=== PATIENT | male | born 1965 | race African-American/Black ===

== ENCOUNTER 2019-07-27 12:56 | Inpatient (IN) | payer MEDICARE, MEDICAID ==
[~2019-07-27] VITALS: Ht 182.9 cm; Wt 86.2 kg
--- NOTE | 2019-07-27 13:25 | Emergency Room Report ---
History of Present Illness General Chief Complaint: Abnormal Labs Source: Patient, EMS Present Illness HPI Patient presents from nursing facility with reports of abnormal test including elevated CRP level patient has also been having left-sided mid chest and flank pain General weakness Denies any chest pain currently denies any vomiting or diarrhea patient has difficulty with hearing Denies any recent trauma denies any cough Denies any active shortness of breath Allergies: Coded Allergies: No Known Allergies (Unverified , 07/27/19) COVID-19 Screening Contact w/high risk pt: No Recent Travel to affected area: No Experienced COVID-19 symptoms?: No Patient History Past Medical History: see triage record Reviewed Nursing Documentation: PMH: Agreed; PSxH: Agreed Nursing Documentation-PMH Hx Diabetes: Yes Review of Systems All Other Systems: negative except mentioned in HPI Physical Exam Vital Signs Date Time Temp Pulse Resp B/P (MAP) Pulse Ox O2 Delivery O2 Flow Rate FiO2 07/27/19 12:58 98.2 76 20 160/88 (112) 95 Room Air Sp02 EP Interpretation: reviewed, normal General Appearance: well appearing, no apparent distress Head: normocephalic, atraumatic Eyes: bilateral eye PERRL, bilateral eye EOMI ENT: EOM grossly intact Neck: supple Respiratory: crackles - Lower lobes Cardiovascular #1: regular rate, rhythm, no edema Gastrointestinal: non tender, soft Genitourinary: normal inspection Musculoskeletal: normal inspection Neurologic: alert, oriented x3 Psychiatric: normal inspection Skin: no rash, palpation normal Lymphatic: no adenopathy Medical Decision Making Diagnostic Impression: Primary Impression: URI (upper respiratory infection) Additional Impressions: Weakness Suspected COVID-19 virus infection ER Course given the patient's history and exam Given the presentation is concerning for possible pneumonia, covert, sepsis, dehydration to name a few patient's x-ray shows questionable concern regarding bilateral infiltrates patient's CRP level is also significantly elevated Provided further medication and admitted for evaluation Labs Test 07/27/19 12:30 07/27/19 13:20 07/27/19 13:45 07/27/19 16:00 White Blood Count 7.3 K/UL (4.8-10.8) Red Blood Count 4.09 M/UL (4.70-6.10) Hemoglobin 12.2 G/DL (14.2-18.0) Hematocrit 36.3 % (42.0-52.0) Mean Corpuscular Volume 89 FL (80-99) Mean Corpuscular Hemoglobin 29.9 PG (27.0-31.0) Mean Corpuscular Hemoglobin Concent 33.7 G/DL (32.0-36.0) Red Cell Distribution Width 13.2 % (11.6-14.8) Platelet Count 338 K/UL (150-450) Mean Platelet Volume 6.0 FL (6.5-10.1) Neutrophils (%) (Auto) 71.1 % (45.0-75.0) Lymphocytes (%) (Auto) 17.2 % (20.0-45.0) Monocytes (%) (Auto) 8.4 % (1.0-10.0) Eosinophils (%) (Auto) 1.3 % (0.0-3.0) Basophils (%) (Auto) 1.9 % (0.0-2.0) Sodium Level 141 MMOL/L (136-145) Potassium Level 3.7 MMOL/L (3.5-5.1) Chloride Level 101 MMOL/L (98-107) Carbon Dioxide Level 25 MMOL/L (21-32) Anion Gap 15 mmol/L (5-15) Blood Urea Nitrogen 11 mg/dL (7-18) Creatinine 0.7 MG/DL (0.55-1.30) Estimat Glomerular Filtration Rate > 60 mL/min (>60) Glucose Level 124 MG/DL (74-106) Hemoglobin A1c 5.9 % (4.3-6.0) Lactic Acid Level 3.90 mmol/L (0.4-2.0) 2.40 mmol/L (0.66-2.22) Calcium Level 9.5 MG/DL (8.5-10.1) Total Bilirubin 0.3 MG/DL (0.2-1.0) Aspartate Amino Transf (AST/SGOT) 47 U/L (15-37) Alanine Aminotransferase (ALT/SGPT) 39 U/L (12-78) Alkaline Phosphatase 248 U/L (46-116) Lactate Dehydrogenase 703 U/L (81-234) Total Creatine Kinase 70 U/L (26-308) Creatine Kinase MB 1.0 NG/ML (0.0-3.6) Creatine Kinase MB Relative Index 1.4 Troponin I 0.000 ng/mL (0.000-0.056) C-Reactive Protein, Quantitative 23.8 mg/dL (0.00-0.90) Pro-B-Type Natriuretic Peptide 267 pg/mL (0-125) Total Protein 7.8 G/DL (6.4-8.2) Albumin 2.5 G/DL (3.4-5.0) Globulin 5.3 g/dL Albumin/Globulin Ratio 0.5 (1.0-2.7) Lipase 173 U/L (73-393) Ferritin 1223 NG/ML (8-388) Urine Color Yellow Urine Appearance Clear Urine pH 6 (4.5-8.0) Urine Specific Thayer 1.015 (1.005-1.035) Urine Protein Negative (NEGATIVE) Urine Glucose (UA) Negative (NEGATIVE) Urine Ketones 1+ (NEGATIVE) Urine Blood Negative (NEGATIVE) Urine Nitrite Negative (NEGATIVE) Urine Bilirubin Negative (NEGATIVE) Urine Urobilinogen 4 MG/DL (0.0-1.0) Urine Leukocyte Esterase Negative (NEGATIVE) Test 07/27/19 18:30 07/27/19 20:00 07/28/19 04:00 07/28/19 11:49 D-Dimer 8.51 mg/L FEU (0.00-0.49) Lactic Acid Level 2.40 mmol/L (0.4-2.0) White Blood Count 7.6 K/UL (4.8-10.8) Red Blood Count 3.70 M/UL (4.70-6.10) Hemoglobin 11.0 G/DL (14.2-18.0) Hematocrit 32.6 % (42.0-52.0) Mean Corpuscular Volume 88 FL (80-99) Mean Corpuscular Hemoglobin 29.7 PG (27.0-31.0) Mean Corpuscular Hemoglobin Concent 33.6 G/DL (32.0-36.0) Red Cell Distribution Width 13.4 % (11.6-14.8) Platelet Count 308 K/UL (150-450) Mean Platelet Volume 6.0 FL (6.5-10.1) Neutrophils (%) (Auto) 73.2 % (45.0-75.0) Lymphocytes (%) (Auto) 20.5 % (20.0-45.0) Monocytes (%) (Auto) 4.2 % (1.0-10.0) Eosinophils (%) (Auto) 1.2 % (0.0-3.0) Basophils (%) (Auto) 0.9 % (0.0-2.0) Sodium Level 144 MMOL/L (136-145) Potassium Level 4.0 MMOL/L (3.5-5.1) Chloride Level 105 MMOL/L (98-107) Carbon Dioxide Level 28 MMOL/L (21-32) Anion Gap 11 mmol/L (5-15) Blood Urea Nitrogen 9 mg/dL (7-18) Creatinine 0.6 MG/DL (0.55-1.30) Estimat Glomerular Filtration Rate > 60 mL/min (>60) Glucose Level 97 MG/DL (74-106) Calcium Level 8.9 MG/DL (8.5-10.1) Phosphorus Level 3.7 MG/DL (2.5-4.9) Magnesium Level 1.9 MG/DL (1.8-2.4) Total Bilirubin 0.3 MG/DL (0.2-1.0) Aspartate Amino Transf (AST/SGOT) 39 U/L (15-37) Alanine Aminotransferase (ALT/SGPT) 35 U/L (12-78) Alkaline Phosphatase 209 U/L (46-116) Total Protein 7.0 G/DL (6.4-8.2) Albumin 2.2 G/DL (3.4-5.0) Globulin 4.8 g/dL Albumin/Globulin Ratio 0.5 (1.0-2.7) Arterial Blood pH 7.453 (7.350-7.450) Arterial Blood Partial Pressure CO2 39.4 mmHg (35.0-45.0) Arterial Blood Partial Pressure O2 64.9 mmHg (75.0-100.0) Arterial Blood HCO3 27.0 mmol/L (22.0-26.0) Arterial Blood Oxygen Saturation 90.9 % (95-100) Arterial Blood Base Excess 2.9 (-2-2) Pawan Test Positive Test 07/28/19 12:20 07/29/19 05:30 Lactic Acid Level 1.60 mmol/L (0.4-2.0) White Blood Count 7.6 K/UL (4.8-10.8) Red Blood Count 4.19 M/UL (4.70-6.10) Hemoglobin 12.6 G/DL (14.2-18.0) Hematocrit 36.2 % (42.0-52.0) Mean Corpuscular Volume 86 FL (80-99) Mean Corpuscular Hemoglobin 30.1 PG (27.0-31.0) Mean Corpuscular Hemoglobin Concent 34.9 G/DL (32.0-36.0) Red Cell Distribution Width 13.3 % (11.6-14.8) Platelet Count 368 K/UL (150-450) Mean Platelet Volume 5.8 FL (6.5-10.1) Neutrophils (%) (Auto) 69.8 % (45.0-75.0) Lymphocytes (%) (Auto) 23.3 % (20.0-45.0) Monocytes (%) (Auto) 4.6 % (1.0-10.0) Eosinophils (%) (Auto) 1.6 % (0.0-3.0) Basophils (%) (Auto) 0.7 % (0.0-2.0) Sodium Level 141 MMOL/L (136-145) Potassium Level 3.8 MMOL/L (3.5-5.1) Chloride Level 102 MMOL/L (98-107) Carbon Dioxide Level 29 MMOL/L (21-32) Anion Gap 10 mmol/L (5-15) Blood Urea Nitrogen 8 mg/dL (7-18) Creatinine 0.6 MG/DL (0.55-1.30) Estimat Glomerular Filtration Rate > 60 mL/min (>60) Glucose Level 96 MG/DL (74-106) Calcium Level 10.1 MG/DL (8.5-10.1) Phosphorus Level 5.3 MG/DL (2.5-4.9) Magnesium Level 2.0 MG/DL (1.8-2.4) Total Bilirubin 0.4 MG/DL (0.2-1.0) Aspartate Amino Transf (AST/SGOT) 35 U/L (15-37) Alanine Aminotransferase (ALT/SGPT) 36 U/L (12-78) Alkaline Phosphatase 257 U/L (46-116) Total Protein 8.2 G/DL (6.4-8.2) Albumin 2.7 G/DL (3.4-5.0) Globulin 5.5 g/dL Albumin/Globulin Ratio 0.5 (1.0-2.7) Rhythm Strip Diag. Results EP Interpretation: yes Rate: 77 Rhythm: NSR, no PVC's, no ectopy Chest X-Ray Diagnostic Results Chest X-Ray Diagnostic Results : Chest X-Ray Ordered: Yes # of Views/Limited/Complete: 1 View Indication: Shortness of Breath EP Interpretation: Yes Interpretation: no pneumothorax, other - bilateral haziness, questionable straight, no acute bony abnormality Impression: Other - bilateral infiltrates Electronically Signed by: tamara mcdonnell DO Last Vital Signs Date Time Temp Pulse Resp B/P (MAP) Pulse Ox O2 Delivery O2 Flow Rate FiO2 07/27/19 12:58 98.2 76 20 160/88 (112) 95 Room Air Status: improved Disposition: ADMITTED INPATIENT Condition: Serious Tamara Mcdonnell DO July 27, 2019 13:25
[2019-07-27 13:49] VITALS: BP 130/78
--- NOTE | 2019-07-27 13:53 | NUR ---
ED Nurse Note:pt. was BIBA from SNF for abnormal labs and andominal pain, pt. is ambulatory A/Ox4 skin is intact, blood and urine sent to labs
[2019-07-27 13:55] LABS: BASOPHILS % (AUTO) 1.9 % (0.0-2.0); EOSINOPHILS % (AUTO) 1.3 % (0.0-3.0); HEMATOCRIT 36.3 % (42.0-52.0); HEMOGLOBIN 12.2 G/DL (14.2-18.0); LYMPHOCYTES % (AUTO) 17.2 % (20.0-45.0); MEAN CORPUSCULAR VOLUME 89 FL (80-99); MONOCYTES % (AUTO) 8.4 % (1.0-10.0); NEUTROPHILS % (AUTO) 71.1 % (45.0-75.0); PLATELET COUNT 338 K/UL (150-450); RED BLOOD COUNT 4.09 M/UL (4.70-6.10); RED CELL DISTRIBUTION WIDTH 13.2 % (11.6-14.8); WHITE BLOOD COUNT 7.3 K/UL (4.8-10.8)
[2019-07-27] MEDS ORDERED: Azithromycin 500 MG in NS 275 ML IV ONE (14:00)
[2019-07-27 14:12] LABS: APPEARANCE,URINE CLEAR; BILIRUBIN, URINE NEGATIVE (NEGATIVE); GLUCOSE, URINE (UA) NEGATIVE (NEGATIVE); KETONES,URINE 1+ (NEGATIVE); LEUKOCYTE ESTERASE ,URINE NEGATIVE (NEGATIVE); NITRITE,URINE NEGATIVE (NEGATIVE); PH,URINE 6 (4.5-8.0); PROTEIN,URINE NEGATIVE (NEGATIVE); UROBILINOGEN,URINE 4 MG/DL (0.0-1.0)
[2019-07-27 14:13] LABS: COLOR,URINE YELLOW
[2019-07-27 14:39] LABS: ANION GAP 15 mmol/L (5-15); BLOOD UREA NITROGEN 11 mg/dL (7-18); CALCIUM 9.5 MG/DL (8.5-10.1); CARBON DIOXIDE 25 MMOL/L (21-32); CHLORIDE 101 MMOL/L (98-107); CREATININE 0.7 MG/DL (0.55-1.30); POTASSIUM 3.7 MMOL/L (3.5-5.1); SODIUM 141 MMOL/L (136-145)
[2019-07-27 14:55] LABS: ALANINE AMINOTRANSFERASE 39 U/L (12-78); ALBUMIN 2.5 G/DL (3.4-5.0); ALBUMIN/GLOBULIN RATIO 0.5 (1.0-2.7); ALKALINE PHOSPHATASE 248 U/L (46-116); ASPARTATE AMINO TRANSFERASE 47 U/L (15-37); BILIRUBIN,TOTAL 0.3 MG/DL (0.2-1.0); CREATINE KINASE 70 U/L (26-308)
[2019-07-27] MEDS ORDERED: Sodium Chloride 2,600 ML IVLG ONE (15:15)
[2019-07-27] MEDS ORDERED: AMLODIPINE BESY10 MG ORAL (15:47)
[2019-07-27] MEDS ORDERED: FLEET ENEMA133 ML RECTAL (15:47)
[2019-07-27] MEDS ORDERED: DOCUSATE SODIU100 MG ORAL (15:47)
[2019-07-27] MEDS ORDERED: ABILIFY20 MG ORAL (15:47)
[2019-07-27] MEDS ORDERED: DEPAKOTE ER250 MG ORAL (15:47)
[2019-07-27] MEDS ORDERED: METFORMIN HCL850 M1 ORAL (15:47)
[2019-07-27] MEDS ORDERED: CYMBALTA30 MG ORAL (15:47)
[2019-07-27] MEDS ORDERED: HYDRALAZINE HCL25 M1 ORAL (15:47)
[2019-07-27] MEDS ORDERED: CRANBERRY450 M5 PO (15:47)
[2019-07-27] MEDS ORDERED: GLUCOSE GEL38 GM PO (15:47)
[2019-07-27] MEDS ORDERED: GLUCAGON EMERGEN1 MG IJ (15:47)
[2019-07-27] MEDS ORDERED: METOPROLOL TART25 MG ORAL (15:47)
[2019-07-27] MEDS ORDERED: IBUPROFEN600 M1 ORAL (15:47)
[2019-07-27] MEDS ORDERED: LANTUS SOL100 UNIT/1 SUBQ (15:47)
[2019-07-27 16:55] VITALS: BP 137/75
--- NOTE | 2019-07-27 17:04 | NUR ---
ED Nurse Note:lactic reflax was sent to labs after IV fluids finished
--- NOTE | 2019-07-27 17:43 | Diagnostic Imaging Report ---
Indication: Chest pain Technique: One view of the chest Comparison: none Findings: There is some consolidation and atelectasis in the retrocardiac region and left lung base. There is some hazy parenchymal opacity in the right midlung. The heart size is upper limits normal. No definite effusions. Impression: Retrocardiac consolidation and atelectasis, right perihilar hazy opacity, could indicate pneumonia. Correlate with clinical findings
[2019-07-27] MEDS ORDERED: Morphine Sulfate 2mg/ml Inj(IV/IM USE ONLY) IVP PRN (18:00)
[2019-07-27] MEDS ORDERED: Albuterol/Ipratropium 3ml neb HHN PRN (18:00)
[2019-07-27] MEDS ORDERED: Docusate 100mg cap ORAL SCH (18:00)
--- NOTE | 2019-07-27 19:15 | NUR ---
ED Nurse Note: received report from Sadaf WAKEFIELD. will resure care of patient
[2019-07-27 19:18] VITALS: BP 125/71
[2019-07-27 19:28] VITALS: BP 129/68
--- NOTE | 2019-07-27 20:19 | NUR ---
ED Nurse Note: ac blood sugar 82. provided pt with meall
--- NOTE | 2019-07-27 20:54 | NUR ---
ED Nurse Note: hs bs 96.
[2019-07-27] MEDS: Docusate 100mg cap ORAL SCH (20:59)
[2019-07-27] MEDS: Depakote ER 250mg tab ORAL SCH (20:59)
[2019-07-27] MEDS: Enoxaparin 40mg Inj SUBQ SCH (21:00)
[2019-07-27] MEDS: HydrALAZINE 25mg tab ORAL SCH (21:59)
--- NOTE | 2019-07-27 21:59 | NUR ---
ED Nurse Note: pt c/o lower back pain. administered prn tylenol.
--- NOTE | 2019-07-27 23:15 | NUR ---
ED Nurse Note: pt placed in jillian bed
[2019-07-28 02:25] VITALS: BP 131/72
[2019-07-28 04:48] LABS: BASOPHILS % (AUTO) 0.9 % (0.0-2.0); EOSINOPHILS % (AUTO) 1.2 % (0.0-3.0); HEMATOCRIT 32.6 % (42.0-52.0); LYMPHOCYTES % (AUTO) 20.5 % (20.0-45.0); MEAN CORPUSCULAR VOLUME 88 FL (80-99); MONOCYTES % (AUTO) 4.2 % (1.0-10.0); NEUTROPHILS % (AUTO) 73.2 % (45.0-75.0); PLATELET COUNT 308 K/UL (150-450); RED CELL DISTRIBUTION WIDTH 13.4 % (11.6-14.8); WHITE BLOOD COUNT 7.6 K/UL (4.8-10.8)
[2019-07-28 05:35] LABS: ALANINE AMINOTRANSFERASE 35 U/L (12-78); ALBUMIN 2.2 G/DL (3.4-5.0); ALBUMIN/GLOBULIN RATIO 0.5 (1.0-2.7); ALKALINE PHOSPHATASE 209 U/L (46-116); ANION GAP 11 mmol/L (5-15); ASPARTATE AMINO TRANSFERASE 39 U/L (15-37); BILIRUBIN,TOTAL 0.3 MG/DL (0.2-1.0); BLOOD UREA NITROGEN 9 mg/dL (7-18); CALCIUM 8.9 MG/DL (8.5-10.1); CARBON DIOXIDE 28 MMOL/L (21-32); CHLORIDE 105 MMOL/L (98-107); CREATININE 0.6 MG/DL (0.55-1.30); PHOSPHORUS 3.7 MG/DL (2.5-4.9); SODIUM 144 MMOL/L (136-145)
[2019-07-28] MEDS: HydrALAZINE 25mg tab ORAL SCH ×3 (05:51→21:55)
[2019-07-28] MEDS: NovoLOG Insulin Flexpen SUBQ SCH ×2 (06:02→11:13)
--- NOTE | 2019-07-28 06:02 | NUR ---
ED Nurse Note: pt bs 82. will hold insulin at this time. provided patient with orange juice
[2019-07-28 06:04] VITALS: BP 139/64
--- NOTE | 2019-07-28 07:02 | NUR ---
ED Nurse Note: GAVE REPORT TO KATY WAKEFIELD
--- NOTE | 2019-07-28 07:10 | NUR ---
ED Nurse Note: Report received from ASHU Eason. Pt lying comfortably in bed in semi-fowlers with no signs of distress. Pt is SR on the monitor @ 79. Respirations even and unlabored on room air with O2 saturation of 93%. Pt A+Ox4, denies pain. IV site patent and intact. All other vitals stable as documented.
[2019-07-28 08:00] VITALS: BP 148/79
[2019-07-28] MEDS: Azithromycin 500 MG in NS 275 ML IV SCH (08:05)
[2019-07-28] MEDS: Docusate 100mg cap ORAL SCH ×2 (08:06→21:00)
[2019-07-28] MEDS: Depakote ER 250mg tab ORAL SCH ×2 (08:12→21:00)
[2019-07-28] MEDS: ARIPiprazole 10mg tab ORAL SCH (08:14)
--- NOTE | 2019-07-28 08:29 | NUR ---
ED Nurse Note: Pt ate 100% of breakfast. Pt having O2 saturation of 87% on room air. Applied 2 L NC. O2 saturation now 94%.
[2019-07-28] MEDS ORDERED: DULoxetine 30mg cap ORAL SCH (09:00)
[2019-07-28 10:00] VITALS: BP 136/69
[2019-07-28] MEDS: DULoxetine 30mg cap ORAL SCH (11:13)
--- NOTE | 2019-07-28 13:20 | NUR ---
ED Nurse Note: Dr. kinney @ bedside
--- NOTE | 2019-07-28 15:00 | History & Physical ---
History of Present Illness General Reason for Hospitalization: Abnormal Labs Present Illness HPI This is a 54 yo M w/ a pmh of HTN, bipolar schizophrenia, and chronic muscular pains who was sent here from [facility] for persistent fever and abnormal labs including a elevated LDH and CK. Patient reportedly had a negative COVID test two days ago, but today is hypoxic ( ABG noted on 2L NC). When visited he actually states he is breathing fine, the labs w/o elevated WBC, however CXR w/ infiltrate. At this point, I do have a high suspicion for COVID; test has been sent. Patient is in isolation. He denies all other symptoms at the present time, and actually states his muscle pains have improved somewhat. He denies chest pain. Patient does have a hx of smoking/COPD putting him at increased risk. His predictive markers are elevated, including Ddimer so given that suspicion for COVID is high, will first obtain a BL LE US to r/o DVT , versus proceeding w/ CTA. Consults w/ include ID and Pulm Allergies: Coded Allergies: No Known Allergies (Unverified , 07/27/19) COVID-19 Screening Contact w/high risk pt: No Recent Travel to affected area: No Experienced COVID-19 symptoms?: No Medication History Scheduled Amlodipine Besylate* (Amlodipine Besylate*), 10 MG ORAL DAILY, (Reported) Aripiprazole* (Abilify*), 20 MG ORAL DAILY, (Reported) Divalproex Sodium* (Depakote Er*), 250 MG ORAL EVERY 12 HOURS, (Reported) Docusate Sodium* (Docusate Sodium*), 100 MG ORAL TWICE A DAY, (Reported) Duloxetine Hcl* (Cymbalta*), 30 MG ORAL DAILY, (Reported) Hydralazine Hcl* (Hydralazine Hcl*), 25 MG ORAL EVERY 8 HOURS, (Reported) Ibuprofen* (Motrin*), 800 MG ORAL FOUR TIMES A DAY, (Reported) Insulin Glargine (Lantus), 0 SUBQ BEDTIME, (Reported) Metformin Hcl* (Metformin Hcl*), 850 MG ORAL DAILY, (Reported) Metoprolol Tartrate* (Metoprolol Tartrate*), 25 MG ORAL EVERY 12 HOURS, ( Reported) Na Phos,M-B/Na Phos,Di-Ba* (Fleet Enema*), 133 ML RECTAL DAILY, (Reported) Miscellaneous Medications Cranberry Fruit (Cranberry), 450 MG PO, (Reported) Dextrose (Glucose Gel), 38 GM PO, (Reported) Glucagon,Human Recombinant (Glucagon Emergency Kit), 1 MG IJ, (Reported) Patient History Limited by: other - patient is not a good hisotrian History Provided By: Medical Record Healthcare decision maker Resuscitation status Advanced Directive on File Family History Family History: Patient reports no known family medical history. Review of Systems Review of Symptoms General ROS: no weight loss , +Fever Psychological ROS: no depression or mood changes, no memory loss Ophthalmic ROS: no visual changes or eye irritation ENT ROS: no nasal congestion, hearing loss, dizziness Allergy and Immunology ROS: no allergic symptoms or urticaria Hematological and Lymphatic ROS: no swollen glands, unusual bleeding or bruising Endocrine ROS: no polyuria, polydipsia, weight changes, temperature intolerance Respiratory ROS: no cough, shortness of breath, or wheezing Cardiovascular ROS: no chest pain or dyspnea on exertion Gastrointestinal ROS: denies abdominal pain, bright red blood in stool. Musculoskeletal ROS: Patient does have muscle aches and pains Neurological ROS: no TIA or stroke symptoms Dermatological ROS: no new or changing skin lesions, rashes or pruritis Physical Exam Physical Exam General appearance: alert, cooperative, no distress, appears stated age Head: Normocephalic, without obvious abnormality, atraumatic Lungs: Requiring nasal cannula, 2L currently, + wheezing Heart: regular rate and rhythm, S1, S2 normal, no murmur, click, rub or gallop Abdomen: soft, non-tender. Bowel sounds normal. No masses, no organomegaly Extremities: extremities normal, atraumatic, no cyanosis or edema, right shoulder scarring noted Pulses: 2+ and symmetric Skin: Skin color, texture, turgor normal. No rashes or lesions Neurologic: Grossly normal Last 24 Hour Vital Signs Date Time Temp Pulse Resp B/P (MAP) Pulse Ox O2 Delivery O2 Flow Rate FiO2 07/28/19 14:52 138/68 07/28/19 10:00 69 24 136/69 92 Room Air 07/28/19 08:12 148 148/75 07/28/19 08:11 85 148/75 07/28/19 08:00 98.4 80 21 148/79 92 Room Air 07/28/19 06:04 98.4 80 21 139/64 89 Room Air 07/28/19 05:51 139/64 07/28/19 02:25 98.6 66 20 131/72 91 Room Air 07/27/19 22:29 98.3 07/27/19 21:59 125/72 07/27/19 20:59 82 146/75 07/27/19 19:28 98.3 74 20 129/68 92 Room Air 07/27/19 19:18 98.2 74 20 125/71 94 Room Air 07/27/19 16:55 98.2 85 20 137/75 94 Room Air Laboratory Tests Test 07/27/19 16:00 07/27/19 18:30 07/27/19 20:00 07/28/19 04:00 Lactic Acid Level 2.40 mmol/L (0.66-2.22) H 2.40 mmol/L (0.4-2.0) H D-Dimer 8.51 mg/L FEU (0.00-0.49) H White Blood Count 7.6 K/UL (4.8-10.8) Red Blood Count 3.70 M/UL (4.70-6.10) L Hemoglobin 11.0 G/DL (14.2-18.0) L Hematocrit 32.6 % (42.0-52.0) L Mean Corpuscular Volume 88 FL (80-99) Mean Corpuscular Hemoglobin 29.7 PG (27.0-31.0) Mean Corpuscular Hemoglobin Concent 33.6 G/DL (32.0-36.0) Red Cell Distribution Width 13.4 % (11.6-14.8) Platelet Count 308 K/UL (150-450) Mean Platelet Volume 6.0 FL (6.5-10.1) L Neutrophils (%) (Auto) 73.2 % (45.0-75.0) Lymphocytes (%) (Auto) 20.5 % (20.0-45.0) Monocytes (%) (Auto) 4.2 % (1.0-10.0) Eosinophils (%) (Auto) 1.2 % (0.0-3.0) Basophils (%) (Auto) 0.9 % (0.0-2.0) Sodium Level 144 MMOL/L (136-145) Potassium Level 4.0 MMOL/L (3.5-5.1) Chloride Level 105 MMOL/L (98-107) Carbon Dioxide Level 28 MMOL/L (21-32) Anion Gap 11 mmol/L (5-15) Blood Urea Nitrogen 9 mg/dL (7-18) Creatinine 0.6 MG/DL (0.55-1.30) Estimat Glomerular Filtration Rate > 60 mL/min (>60) Glucose Level 97 MG/DL (74-106) Calcium Level 8.9 MG/DL (8.5-10.1) Phosphorus Level 3.7 MG/DL (2.5-4.9) Magnesium Level 1.9 MG/DL (1.8-2.4) Total Bilirubin 0.3 MG/DL (0.2-1.0) Aspartate Amino Transf (AST/SGOT) 39 U/L (15-37) H Alanine Aminotransferase (ALT/SGPT) 35 U/L (12-78) Alkaline Phosphatase 209 U/L (46-116) H Total Protein 7.0 G/DL (6.4-8.2) Albumin 2.2 G/DL (3.4-5.0) L Globulin 4.8 g/dL Albumin/Globulin Ratio 0.5 (1.0-2.7) L Test 07/28/19 11:49 07/28/19 12:20 Arterial Blood pH 7.453 (7.350-7.450) Arterial Blood Partial Pressure CO2 39.4 mmHg (35.0-45.0) Arterial Blood Partial Pressure O2 64.9 mmHg (75.0-100.0) L Arterial Blood HCO3 27.0 mmol/L (22.0-26.0) H Arterial Blood Oxygen Saturation 90.9 % (95-100) L Arterial Blood Base Excess 2.9 (-2-2) H Pawan Test Positive Lactic Acid Level 1.60 mmol/L (0.4-2.0) Height (Feet): 6 Weight (Pounds): 190 Medications Current Medications Medications (Trade) Dose Ordered Sig/Amita Route PRN Reason Start Time Stop Time Status Last Admin Dose Admin Acetaminophen (Tylenol) 650 mg Q4H PRN ORAL Mild Pain (Pain Scale 1-3) 07/27/19 18:00 08/26/19 17:59 07/27/19 21:59 Albuterol/ Ipratropium (Albuterol/ Ipratropium) 3 ml Q6H PRN HHN Shortness of Breath 07/27/19 18:00 08/01/19 17:59 Amlodipine Besylate (Norvasc) 10 mg DAILY ORAL 07/28/19 09:00 08/27/19 08:59 07/28/19 08:12 Aripiprazole (Abilify) 20 mg DAILY ORAL 07/28/19 09:00 09/11/19 08:59 07/28/19 08:14 Azithromycin 500 mg/Sodium Chloride 275 ml @ 275 mls/hr DAILY IV 07/28/19 09:00 08/02/19 08:59 07/28/19 08:05 Dextrose (Dextrose 50%) 25 ml Q30M PRN IV Hypoglycemia 07/27/19 18:00 10/25/19 17:59 Dextrose (Dextrose 50%) 50 ml Q30M PRN IV Hypoglycemia 07/27/19 18:00 10/25/19 17:59 Divalproex Sodium (Depakote ER) 250 mg EVERY 12 HOURS ORAL 07/27/19 21:00 08/26/19 20:59 07/28/19 08:12 Docusate Sodium (Colace) 100 mg EVERY 12 HOURS ORAL 07/27/19 21:00 08/26/19 20:59 07/28/19 08:06 Duloxetine HCl (Cymbalta) 30 mg DAILY ORAL 07/28/19 11:00 10/26/19 08:59 07/28/19 11:13 Enoxaparin Sodium (Lovenox) 40 mg Q24H SUBQ 07/27/19 21:00 10/25/19 20:59 07/27/19 21:00 Famotidine (Pepcid) 20 mg BID ORAL 07/27/19 18:00 10/25/19 17:59 07/28/19 08:06 Hydralazine HCl (Apresoline) 25 mg EVERY 8 HOURS ORAL 07/27/19 22:00 10/25/19 21:59 07/28/19 14:52 Insulin Aspart (NovoLOG) BEFORE MEALS AND HS SUBQ 07/28/19 06:30 10/26/19 06:29 Metoprolol Tartrate (Lopressor) 25 mg EVERY 12 HOURS ORAL 07/27/19 21:00 10/25/19 20:59 07/28/19 08:11 Morphine Sulfate (Morphine Sulfate) 1 mg Q6H PRN IVP PAIN 4-10 07/27/19 18:00 08/03/19 17:59 Ondansetron HCl (Zofran) 4 mg Q6H PRN IVP Nausea & Vomiting 07/27/19 18:00 08/26/19 17:59 Sodium Chloride 1,000 ml @ 75 mls/hr [id number] IV 07/27/19 18:16 08/26/19 18:15 07/28/19 08:05 Assessment/Plan Status: unchanged Assessment/Plan: Assessment #Acute Hypoxic Respiratory Failure, R/O COVID vs HCAP -->CXR w/ + Infiltrate, COPD HX (negative COVID test two days ago), elevated predictive markers including Ddimer #Lactic Acidosis-Resolved #HTN #Bipolar/Schizophrenia #Chronic Pain Plan Consult to ID and Pulm ABG noted, Continue breathing treatments D/C IVF; prefer to keep patient dry given high suspicion for COVID Azithromycin and Rocephin IV, COVID Test pending Obtain Doppler US; Reccomend Trend Predictive Markers and Ddimer- Q2 days -> if Ddimer continues to climb to > 10 times normal, consider Heparin gtt vs Lovenox BID Acharya CX pending Home psych meds and HTN meds have been resumed PRN for BP and pain as needed DVT ppx Diet as tolerated--> obtain A1c to rule out DMII Patient is FULL CODE Ariana Rubio D.O. July 28, 2019 15:00
--- NOTE | 2019-07-28 16:15 | NUR ---
ED Nurse Note: Report given to ASHU De Leon on 4E.
[2019-07-28] MEDS: cefTRIAXone 1 GM in NS 55 ML IVPB SCH (16:33)
--- NOTE | 2019-07-28 16:50 | NUR ---
ED Nurse Note: Pt transferred safely to 4E.
[2019-07-28 17:08] VITALS: BP 137/69
--- NOTE | 2019-07-28 18:17 | NUR ---
NURSE NOTES: pt awake alert, no distress. no sob. eating dinner. call light within reach. bed in lowest position, locked.
--- NOTE | 2019-07-28 18:25 | Diagnostic Imaging Report ---
History: DVT Exam: US VENOUS BILATERAL LOWER EXTREMITIES Comparison: None available FINDINGS: Deep venous system of the right and left lower extremity appear patent and compressible with spontaneous flow without intraluminal echoes. IMPRESSION: No evidence of DVT within the right or left lower extremity.
[2019-07-28 20:00] VITALS: BP 129/77
--- NOTE | 2019-07-28 20:38 | NUR ---
NURSE NOTES: Patient in bed, awake, able to make needs known. Respiration is even and unlabored. No complaint of pain or discomfort noted. Abdomen is soft and non distended. IV site noted. Bed in low and locked position.Kept clean and comfortable. Isolation precaution observed. Will continue plan of care.
[2019-07-28] MEDS: Enoxaparin 40mg Inj SUBQ SCH (21:54)
[2019-07-29] VITALS: BP 115/70
[2019-07-29 04:00] VITALS: BP 136/72
[2019-07-29] MEDS: HydrALAZINE 25mg tab ORAL SCH ×3 (06:15→22:03)
--- NOTE | 2019-07-29 07:19 | NUR ---
HAND-OFF: Report given to SIGRID Parr.
[2019-07-29 07:28] LABS: BASOPHILS % (AUTO) 0.7 % (0.0-2.0); EOSINOPHILS % (AUTO) 1.6 % (0.0-3.0); HEMATOCRIT 36.2 % (42.0-52.0); HEMOGLOBIN 12.6 G/DL (14.2-18.0); LYMPHOCYTES % (AUTO) 23.3 % (20.0-45.0); MEAN CORPUSCULAR VOLUME 86 FL (80-99); MONOCYTES % (AUTO) 4.6 % (1.0-10.0); NEUTROPHILS % (AUTO) 69.8 % (45.0-75.0); PLATELET COUNT 368 K/UL (150-450); RED BLOOD COUNT 4.19 M/UL (4.70-6.10); RED CELL DISTRIBUTION WIDTH 13.3 % (11.6-14.8); WHITE BLOOD COUNT 7.6 K/UL (4.8-10.8)
[2019-07-29 07:35] LABS: ALANINE AMINOTRANSFERASE 36 U/L (12-78); ALBUMIN 2.7 G/DL (3.4-5.0); ALBUMIN/GLOBULIN RATIO 0.5 (1.0-2.7); ALKALINE PHOSPHATASE 257 U/L (46-116); ANION GAP 10 mmol/L (5-15); ASPARTATE AMINO TRANSFERASE 35 U/L (15-37); BILIRUBIN,TOTAL 0.4 MG/DL (0.2-1.0); BLOOD UREA NITROGEN 8 mg/dL (7-18); CALCIUM 10.1 MG/DL (8.5-10.1); CARBON DIOXIDE 29 MMOL/L (21-32); CHLORIDE 102 MMOL/L (98-107); CREATININE 0.6 MG/DL (0.55-1.30); PHOSPHORUS 5.3 MG/DL (2.5-4.9); POTASSIUM 3.8 MMOL/L (3.5-5.1); SODIUM 141 MMOL/L (136-145)
--- NOTE | 2019-07-29 07:45 | NUR ---
NURSE NOTES: pt awake, alert, oriented x3, able to make things known. IV site patent and intact. no acute resp distress noted. no sob/labored breathing. eating breakfast on high crow position. bed is in the lowest position. siderails are upx2. brakes and locked engaged. call light within reach.
[2019-07-29 08:00] VITALS: BP 148/80
[2019-07-29] MEDS: ARIPiprazole 10mg tab ORAL SCH (09:15)
[2019-07-29] MEDS: Depakote ER 250mg tab ORAL SCH ×2 (09:16→22:02)
[2019-07-29] MEDS: Docusate 100mg cap ORAL SCH ×2 (09:17→22:02)
[2019-07-29] MEDS: DULoxetine 30mg cap ORAL SCH (09:17)
[2019-07-29] MEDS: cefTRIAXone 1 GM in NS 55 ML IVPB SCH (09:53)
[2019-07-29] MEDS: Azithromycin 500 MG in NS 275 ML IV SCH (10:48)
--- NOTE | 2019-07-29 11:15 | Consultation ---
DATE OF CONSULTATION: 07/29/2019 PULMONARY CONSULTATION CONSULTING PHYSICIAN: Haresh Jaramillo MD. HISTORY OF PRESENT ILLNESS: This is a 54-year-old male with a known history of schizophrenia, bipolar disorder, who was sent in from nursing facility with fever as well as abnormal labs. Apparently, he had a negative COVID-19 test several days ago, but was found to be significantly hypoxic. He also has a history of hypertension. The patient underwent imaging study, which showed pulmonary infiltrates. He was admitted to the hospital and placed in respiratory isolation. The patient denies chest pain. He admits to having myalgias. He has been a smoker in the past, may have underlying COPD as well. HOME MEDICATIONS: Abilify, Depakote, Cymbalta, hydralazine, Motrin, Lantus, metformin, metoprolol, amlodipine. PAST HISTORY: Discussed above. Notable for schizophrenia, bipolar disorder, hypertension, diabetes mellitus, probable underlying COPD. ALLERGIES: None. SOCIAL HISTORY: shelter resident. CODE STATUS: Full Code. REVIEW OF SYSTEMS: Denies any headaches, hematemesis, melena, or hematochezia. PHYSICAL EXAMINATION: VITAL SIGNS: Blood pressure is 140/80, heart rate 74, respirations 18, O2 saturation 98% on 3 L of oxygen. GENERAL: Reveals a 54-year-old male. HEENT: Unremarkable. LUNGS: Decreased breath sounds bilaterally with normal heart sounds. ABDOMEN: Soft. EXTREMITIES: There is no edema. LABORATORY DATA: Lab testing shows hemoglobin 12.6. Chemistries are normal. ABG, pH 7.45, pCO2 39, pO2 64, this is apparently on room air. Coags are negative. Urinalysis is negative. His D-dimer is 8.5. COVID-19 testing obtained on 07/27/2019 is negative PCR x1. X-ray of the chest obtained on 07/27/2019 shows bibasilar infiltrate suspicious for pneumonia. IMPRESSION: 1. Bilateral pneumonia. 2. shelter resident. 3. Hypertension. 4. Diabetes mellitus. 5. Schizophrenia. 6. Bipolar disorder. 7. Initially negative COVID-19 PCR. DISCUSSION: Admit to the hospital. Agree with broad-spectrum antibiotics. Oxygen and pulmonary hygiene. With high D-dimer, abnormal x-ray, and clinical scenario, I suspect he has COVID-19. I would recommend repeat COVID-19 PCR. We will follow as polymer engineer. Haresh Jaramillo M.D. DR: JOSE ROBERTO JOB#: [id number] CC:
--- NOTE | 2019-07-29 11:18 | NUR ---
NURSE NOTES: swab for covid sent to the lab. will cont to monitor.
--- NOTE | 2019-07-29 11:19 | General Progress Note ---
Assessment/Plan Status: unchanged Assessment/Plan: Assessment #Acute Hypoxic Respiratory Failure, R/O COVID vs HCAP -->CXR w/ + Infiltrate, COPD HX (negative COVID test two days ago), elevated predictive markers including Ddimer , US negative for DVT #Lactic Acidosis-Resolved #HTN #Bipolar/Schizophrenia #Chronic Pain Plan Consult to ID and Pulm ABG noted, Continue breathing treatments D/C IVF; prefer to keep patient dry given high suspicion for COVID Azithromycin and Rocephin IV, Initial COVID test negative however presumed False negative at this point Obtain Doppler US; Reccomend Trend Predictive Markers and Ddimer- Q3 days -> if Ddimer continues to climb to > 10 times normal, consider Heparin gtt vs Lovenox BID Acharya CX pending Home psych meds and HTN meds have been resumed PRN for BP and pain as needed DVT ppx Diet as tolerated- 07/28: Repeat COVID, initial negative test presumed false negative given elevated predictive markers and hypoxia Patient is FULL CODE Subjective Date patient seen: July 29, 2019 Time patient seen: 11:15 Allergies: Coded Allergies: No Known Allergies (Unverified , 07/27/19) Subjective Patients initial COVID came back negative, however have a very high suspicion this is a false negative. A repeat Test has been sent, note all predictive markers are very elevated and low lymphocytes. Feel he should be treated as COVID +. DVT negative Objective Last 24 Hour Vital Signs Date Time Temp Pulse Resp B/P (MAP) Pulse Ox O2 Delivery O2 Flow Rate FiO2 07/29/19 10:54 Nasal Cannula 2.0 07/29/19 09:46 98.3 07/29/19 09:16 78 148/80 07/29/19 09:16 78 148/80 07/29/19 08:00 97.7 78 20 148/80 (102) 95 07/29/19 06:15 136/72 07/29/19 04:00 98.3 64 18 136/72 (93) 98 07/29/19 00:00 97.6 60 18 115/70 (85) 99 07/28/19 21:55 129/77 07/28/19 21:00 Nasal Cannula 2.0 07/28/19 21:00 86 129/77 07/28/19 20:00 98.0 86 18 129/77 (94) 95 07/28/19 17:15 Nasal Cannula 2.0 07/28/19 17:08 98.5 73 18 137/69 (91) 90 07/28/19 16:50 98.1 74 24 137/76 93 Room Air 07/28/19 14:52 138/68 Intake and Output 07/28/19 07/29/19 19:00 07:00 Intake Total 240 ml Output Total 1900 ml Balance 240 ml -1900 ml Intake Oral 240 ml Output Urine Total 1900 ml # Voids 1 3 Laboratory Tests 07/28/19 11:49: Arterial Blood pH 7.453H, Arterial Blood Partial Pressure CO2 39.4, Arterial Blood Partial Pressure O2 64.9L, Arterial Blood HCO3 27.0H, Arterial Blood Oxygen Saturation 90.9L, Arterial Blood Base Excess 2.9H, Pawan Test Positive 07/28/19 12:20: Lactic Acid Level 1.60 07/29/19 05:30: White Blood Count 7.6, Red Blood Count 4.19L, Hemoglobin 12.6L, Hematocrit 36.2L , Mean Corpuscular Volume 86, Mean Corpuscular Hemoglobin 30.1, Mean Corpuscular Hemoglobin Concent 34.9, Red Cell Distribution Width 13.3, Platelet Count 368, Mean Platelet Volume 5.8L, Neutrophils (%) (Auto) 69.8, Lymphocytes ( %) (Auto) 23.3, Monocytes (%) (Auto) 4.6, Eosinophils (%) (Auto) 1.6, Basophils (%) (Auto) 0.7, Sodium Level 141, Potassium Level 3.8, Chloride Level 102, Carbon Dioxide Level 29, Anion Gap 10, Blood Urea Nitrogen 8, Creatinine 0.6, Estimat Glomerular Filtration Rate > 60, Glucose Level 96, Calcium Level 10.1, Phosphorus Level 5.3H, Magnesium Level 2.0, Total Bilirubin 0.4, Aspartate Amino Transf (AST/SGOT) 35, Alanine Aminotransferase (ALT/SGPT) 36, Alkaline Phosphatase 257H, Total Protein 8.2, Albumin 2.7L, Globulin 5.5, Albumin/ Globulin Ratio 0.5L Height (Feet): 6 Height (Inches): 0.00 Weight (Pounds): 190 General Appearance: no apparent distress EENT: PERRL/EOMI Cardiovascular: normal rate, regular rhythm Respiratory/Chest: lungs clear, normal breath sounds Abdomen: non tender, soft Extremities: normal range of motion 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 July 29, 2019 11:19
[2019-07-29 12:08] VITALS: BP 147/76
[2019-07-29 16:00] VITALS: BP 141/75
--- NOTE | 2019-07-29 17:27 | Infectious Diseases Prog Note ---
Assessment/Plan Assessment/Plan Full consult dictated: A) 1) CAP 2) rule out covid-19 virus infection/pna 3) pmh noted 4) allergies - nkda P) 1) ceftriaxone and azithromycin 2) check cultures, labs and chest x-ray 3) f/u on covid-19 testing 4) thank you Subjective Allergies: Coded Allergies: No Known Allergies (Unverified , 07/27/19) Objective Vital Signs Last 24 Hour Vital Signs Date Time Temp Pulse Resp B/P (MAP) Pulse Ox O2 Delivery O2 Flow Rate FiO2 07/29/19 16:00 98.6 67 16 141/75 (97) 92 07/29/19 13:59 149/77 07/29/19 12:08 98.0 66 20 147/76 (99) 97 07/29/19 10:54 Nasal Cannula 2.0 07/29/19 09:46 98.3 07/29/19 09:16 78 148/80 07/29/19 09:16 78 148/80 07/29/19 08:00 97.7 78 20 148/80 (102) 95 07/29/19 06:15 136/72 07/29/19 04:00 98.3 64 18 136/72 (93) 98 07/29/19 00:00 97.6 60 18 115/70 (85) 99 07/28/19 21:55 129/77 07/28/19 21:00 Nasal Cannula 2.0 07/28/19 21:00 86 129/77 07/28/19 20:00 98.0 86 18 129/77 (94) 95 Height (Feet): 6 Height (Inches): 0.00 Weight (Pounds): 190 Microbiology Date/Time Source Procedure Growth Status 07/27/19 13:30 Blood Blood Culture - Preliminary NO GROWTH AFTER 24 HOURS Resulted 07/27/19 13:20 Blood Blood Culture - Preliminary NO GROWTH AFTER 24 HOURS Resulted 07/27/19 16:25 Nasal Nares MRSA Culture - Final NO METHICILLIN RESISTANT STAPH AUREUS... Complete 07/27/19 13:30 Nasopharynx Coronavirus COVID-19 PCR ([place]) - Final Complete 07/27/19 16:25 Rectum VRE Culture - Final NO VANCOMYCIN RESISTANT ENTEROCOCCUS ... Complete 07/27/19 16:25 Rectum - Final NO CARBAPENEM-RESISTANT ENTEROBACTERI... Complete Laboratory Tests Test 07/29/19 05:30 White Blood Count 7.6 K/UL (4.8-10.8) Red Blood Count 4.19 M/UL (4.70-6.10) L Hemoglobin 12.6 G/DL (14.2-18.0) L Hematocrit 36.2 % (42.0-52.0) L Mean Corpuscular Volume 86 FL (80-99) Mean Corpuscular Hemoglobin 30.1 PG (27.0-31.0) Mean Corpuscular Hemoglobin Concent 34.9 G/DL (32.0-36.0) Red Cell Distribution Width 13.3 % (11.6-14.8) Platelet Count 368 K/UL (150-450) Mean Platelet Volume 5.8 FL (6.5-10.1) L Neutrophils (%) (Auto) 69.8 % (45.0-75.0) Lymphocytes (%) (Auto) 23.3 % (20.0-45.0) Monocytes (%) (Auto) 4.6 % (1.0-10.0) Eosinophils (%) (Auto) 1.6 % (0.0-3.0) Basophils (%) (Auto) 0.7 % (0.0-2.0) Sodium Level 141 MMOL/L (136-145) Potassium Level 3.8 MMOL/L (3.5-5.1) Chloride Level 102 MMOL/L (98-107) Carbon Dioxide Level 29 MMOL/L (21-32) Anion Gap 10 mmol/L (5-15) Blood Urea Nitrogen 8 mg/dL (7-18) Creatinine 0.6 MG/DL (0.55-1.30) Estimat Glomerular Filtration Rate > 60 mL/min (>60) Glucose Level 96 MG/DL (74-106) Calcium Level 10.1 MG/DL (8.5-10.1) Phosphorus Level 5.3 MG/DL (2.5-4.9) H Magnesium Level 2.0 MG/DL (1.8-2.4) Total Bilirubin 0.4 MG/DL (0.2-1.0) Aspartate Amino Transf (AST/SGOT) 35 U/L (15-37) Alanine Aminotransferase (ALT/SGPT) 36 U/L (12-78) Alkaline Phosphatase 257 U/L (46-116) H Total Protein 8.2 G/DL (6.4-8.2) Albumin 2.7 G/DL (3.4-5.0) L Globulin 5.5 g/dL Albumin/Globulin Ratio 0.5 (1.0-2.7) L Current Medications Medications (Trade) Dose Ordered Sig/Amita Route PRN Reason Start Time Stop Time Status Last Admin Dose Admin Acetaminophen (Tylenol) 650 mg Q4H PRN ORAL Mild Pain (Pain Scale 1-3) 07/27/19 18:00 08/26/19 17:59 07/29/19 16:57 Albuterol/ Ipratropium (Albuterol/ Ipratropium) 3 ml Q6H PRN HHN Shortness of Breath 07/27/19 18:00 08/01/19 17:59 Amlodipine Besylate (Norvasc) 10 mg DAILY ORAL 07/28/19 09:00 08/27/19 08:59 07/29/19 09:16 Aripiprazole (Abilify) 20 mg DAILY ORAL 07/28/19 09:00 09/11/19 08:59 07/29/19 09:15 Azithromycin 500 mg/Sodium Chloride 275 ml @ 275 mls/hr DAILY IV 07/28/19 09:00 08/02/19 08:59 07/29/19 10:48 Ceftriaxone Sodium 1 gm/ Sodium Chloride 55 ml @ 110 mls/hr DAILY IVPB 07/28/19 16:15 08/03/19 16:14 07/29/19 09:53 Dextrose (Dextrose 50%) 25 ml Q30M PRN IV Hypoglycemia 07/27/19 18:00 10/25/19 17:59 Dextrose (Dextrose 50%) 50 ml Q30M PRN IV Hypoglycemia 07/27/19 18:00 10/25/19 17:59 Divalproex Sodium (Depakote ER) 250 mg EVERY 12 HOURS ORAL 07/27/19 21:00 08/26/19 20:59 07/29/19 09:16 Docusate Sodium (Colace) 100 mg EVERY 12 HOURS ORAL 07/27/19 21:00 08/26/19 20:59 07/29/19 09:17 Duloxetine HCl (Cymbalta) 30 mg DAILY ORAL 07/28/19 11:00 10/26/19 08:59 07/29/19 09:17 Enoxaparin Sodium (Lovenox) 40 mg Q24H SUBQ 07/27/19 21:00 10/25/19 20:59 07/28/19 21:54 Famotidine (Pepcid) 20 mg BID ORAL 07/27/19 18:00 10/25/19 17:59 07/29/19 16:57 Hydralazine HCl (Apresoline) 25 mg EVERY 8 HOURS ORAL 07/27/19 22:00 10/25/19 21:59 07/29/19 13:59 Metoprolol Tartrate (Lopressor) 25 mg EVERY 12 HOURS ORAL 07/27/19 21:00 10/25/19 20:59 07/29/19 09:16 Morphine Sulfate (Morphine Sulfate) 1 mg Q6H PRN IVP PAIN 4-10 07/27/19 18:00 08/03/19 17:59 Ondansetron HCl (Zofran) 4 mg Q6H PRN IVP Nausea & Vomiting 07/27/19 18:00 08/26/19 17:59 Rosalie Jay MD July 29, 2019 17:27
--- NOTE | 2019-07-29 18:57 | NUR ---
HAND-OFF: Report given to Monique.
[2019-07-29 20:00] VITALS: BP 152/82
--- NOTE | 2019-07-29 20:00 | NUR ---
NURSE NOTES: RECEIVED PATIENT LYING IN BED, AWAKE, ALERT/ORIENTED TO PERSON/PLACE, REALITY ORIENTATION PROVIDED DURING ASSESSMENT, DENIES PAIN. NO SIGNS AND SYMPTOMS OF ACUTE CARDIO RESPIRATORY DISTRESS/SHORTNESS OF BREATH, NO PERIPHERAL EDEMA NOTED. COVID 19 PRECAUTIONS OBSERVED/SECOND SWAB PENDING. IV INTACT TO RIGHT FOREARM/GAUGE 20 SL, NO REDNESS/SWELLING NOTED. ABDOMEN SOFT/NON DISTENDED/NON TENDER/AUDIBLE BOWEL SOUNDS, NO N/V/D. SIDE RAILS UP X3, BED IN LOWEST POSITION FOR SAFETY, ENCOURAGED PATIENT TO UTILIZE CALL LIGHT FOR ASSISTANCE, VERBALIZED UNDERSTANDING. NAD.
[2019-07-29] MEDS: Enoxaparin 40mg Inj SUBQ SCH (22:08)
[2019-07-30] VITALS: BP 146/76
--- NOTE | 2019-07-30 02:15 | Consultation ---
DATE OF CONSULTATION: 07/29/2019 INFECTIOUS DISEASE CONSULTATION ATTENDING PHYSICIAN: Gabriele Schaeffer M.D. REFERRING PHYSICIAN: Ariana Rubio M.D. REASON FOR CONSULTATION: Possible community-acquired pneumonia, rule out COVID-19 virus infection with pneumonia. CHIEF COMPLAINT: The patient's chief complaint coming into the hospital is pneumonia and abnormal labs. HISTORY OF PRESENT ILLNESS: This is a 54-year-old male who has a history of multiple medical problems who came into [facility] with what looks like fevers and abnormal labs, elevated LDH and CK. Per the records, he had a negative COVID test prior to admission, but was hypoxic. Chest x-ray shows infiltrate that is unilateral suggestive of community-acquired pneumonia. Infectious Disease consultation was requested. The patient is being treated with Rocephin and azithromycin. He is currently in COVID-19 isolation and being ruled out with followup testing. The patient also had elevated D-dimers and LDH and CK suggestive that he could have a COVID-19 virus infection, but he currently does not have lymphopenia. The patient currently is on Rocephin and azithromycin for community-acquired pneumonia, pending final workup. No indication for hydroxychloroquine at this time. MAR was noted. Orders were reviewed. Notes and records were reviewed. REVIEW OF SYSTEMS: CONSTITUTIONAL: As discussed, looks like he has a history of fevers. He has currently no fevers today. No night sweats. HEAD AND NECK: No head pain or neck pain. No thrush or dysphagia. CARDIAC: No chest pain or palpitations. GASTROINTESTINAL: No nausea, vomiting, abdominal pain, or diarrhea. GENITOURINARY: No Telles. No CVA tenderness any dysuria. PULMONARY: He has mild cough and congestion, but no shortness of breath. Mild secretions. SKIN: No rash or itching. EXTREMITIES: No pain. NEUROLOGIC: No seizures. Denies fatigue. No focal weakness. PAST MEDICAL HISTORY: The patient has a past medical history of essential hypertension, history of bipolar disease, history of schizophrenia, history of chronic muscular pain. He comes from a SNF. ALLERGIES: No known drug allergies. No antibiotic allergies. SOCIAL HISTORY: Negative for smoking, alcohol, or drug abuse. FAMILY HISTORY: Noncontributory. Negative for tuberculosis or cancer. MEDICATIONS: Upon reviewing the MAR, he is on the following medication. He is on Cymbalta or duloxetine, Rocephin, azithromycin, amlodipine, omeprazole, hydralazine, divalproex, metoprolol, enoxaparin, docusate, albuterol, morphine, famotidine, and Zofran. Outside medications noted. PHYSICAL EXAMINATION: VITAL SIGNS: Temperature is 98.6, pulse rate 67, respiratory rate 16, blood pressure 141/75, and saturation 92% to 97% on 2 liters. No fever here, but per the records, he has a history of fevers. GENERAL: He is alert and responsive, no acute distress. No shortness of breath noted. HEAD AND NECK: Oral exam, no thrush. Eye exam, no icterus. Normocephalic. No JVD. No icterus. Neck is supple. LUNGS: Clear bilaterally. No rales. HEART: Regular. No gallop or murmur. No friction rub. ABDOMEN: Soft. Positive bowel sounds. Nontender. LUNGS: Clear bilaterally. No rales. SKIN: No rash. MUSCULOSKELETAL: No effusion or septic arthritis. LOWER EXTREMITIES: Without cellulitis. PERIPHERAL VASCULAR: No cyanosis or gangrene. GENITOURINARY: No Telles. No CVA tenderness. LINE SITES: No phlebitis on IV. NEUROLOGIC: Intact and nonfocal. Alert and oriented x3. LABORATORY DATA: White count 7.6, hemoglobin 12.6. Lymphocytes and initial CBC was low. Creatinine 0.6. LFTs noted. Alkaline phosphatase 257. Initial lactic acid was 2.4, but has been as high as 3.9. LDH was 703, ferritin 1223, C-reactive protein 23.8. Urinalysis, leukocyte esterase negative. Chest x-ray shows retrocardiac infiltrate and consolidation of right hazy opacity, perihilar. Cultures pending. ASSESSMENT AND PLAN: 1. The patient has pneumonia, looks like x-ray of bilateral process, not a unilateral, elevated LDH, D-dimer, ferritin, and CRP. The patient has a history of lymphopenia. This is highly suggestive that the patient could have COVID-19 virus infection. Rule out community-acquired pneumonia. Rule out sepsis. Elevated lactic acid, history of fevers. At this time, we will continue Rocephin and azithromycin to cover community-acquired pneumonia. Check COVID-19 testing. Consider hydroxychloroquine. Continue Rocephin and azithromycin for pneumonia and sepsis, history of fevers. Await COVID-19 PCR testing. Check followup laboratories and x-ray. Continue supportive care. Continue isolation for COVID-19 virus with droplet isolation. 2. The patient has a history of hypertension, blood pressure treatment per primary care team. 3. Bipolar disease. 4. Schizophrenia. 5. Chronic muscular pain. 6. No known allergies. 7. Social history negative. 8. Family history noncontributory. 9. MAR was noted. 10. Case discussed with RN. 11. Continue treatment per primary consultants. Rosalie Jay M.D. DR: Viola JOB#: [id number] CC:
[2019-07-30 04:00] VITALS: BP 146/77
[2019-07-30] MEDS: HydrALAZINE 25mg tab ORAL SCH ×3 (05:15→22:21)
--- NOTE | 2019-07-30 06:28 | NUR ---
NURSE NOTES: RESTED WELL, NO SIGNIFICANT CHANGE OF CONDITION NOTED THROUGHOUT THE NIGHT. SAFETY MAINTAINED. NAD.
--- NOTE | 2019-07-30 07:18 | NUR ---
HAND-OFF: Report given to SIGRID MEJIA.
--- NOTE | 2019-07-30 07:35 | NUR ---
NURSE NOTES: pt awake, alert, oriented x3 in bed calm and comfortable. able to make things known. IV site patent and intact. no acute cardio-resp distress noted. no sob/labored breathing. eating breakfast on high crow position. consumed adequate amount of food intake. Able to use urinal. bed is in the lowest position. siderails are upx2. brakes and locked engaged. call light within reach. will cont to monitor.
[2019-07-30 07:39] LABS: BASOPHILS % (AUTO) 1.2 % (0.0-2.0); EOSINOPHILS % (AUTO) 1.1 % (0.0-3.0); HEMATOCRIT 38.5 % (42.0-52.0); HEMOGLOBIN 13.2 G/DL (14.2-18.0); MEAN CORPUSCULAR VOLUME 86 FL (80-99); MONOCYTES % (AUTO) 4.9 % (1.0-10.0); NEUTROPHILS % (AUTO) 71.7 % (45.0-75.0); PLATELET COUNT 429 K/UL (150-450); RED BLOOD COUNT 4.46 M/UL (4.70-6.10); RED CELL DISTRIBUTION WIDTH 13.2 % (11.6-14.8); WHITE BLOOD COUNT 8.1 K/UL (4.8-10.8)
[2019-07-30 08:00] VITALS: BP 132/74
[2019-07-30 08:10] LABS: ALANINE AMINOTRANSFERASE 39 U/L (12-78); ALBUMIN 2.7 G/DL (3.4-5.0); ALBUMIN/GLOBULIN RATIO 0.5 (1.0-2.7); ALKALINE PHOSPHATASE 289 U/L (46-116); ANION GAP 9 mmol/L (5-15); ASPARTATE AMINO TRANSFERASE 49 U/L (15-37); BILIRUBIN,TOTAL 0.4 MG/DL (0.2-1.0); BLOOD UREA NITROGEN 12 mg/dL (7-18); CALCIUM 10.1 MG/DL (8.5-10.1); CARBON DIOXIDE 25 MMOL/L (21-32); CHLORIDE 101 MMOL/L (98-107); CREATININE 0.6 MG/DL (0.55-1.30); PHOSPHORUS 5.3 MG/DL (2.5-4.9); POTASSIUM 3.8 MMOL/L (3.5-5.1); SODIUM 135 MMOL/L (136-145)
[2019-07-30] MEDS: DULoxetine 30mg cap ORAL SCH (08:39)
[2019-07-30] MEDS: ARIPiprazole 10mg tab ORAL SCH (08:39)
[2019-07-30] MEDS: Depakote ER 250mg tab ORAL SCH ×2 (08:40→22:21)
[2019-07-30] MEDS: Docusate 100mg cap ORAL SCH ×2 (08:40→22:21)
--- NOTE | 2019-07-30 08:49 | General Progress Note ---
Assessment/Plan Status: unchanged Assessment/Plan: 54 yo M w/ a pmh of HTN, bipolar schizophrenia, and chronic muscular pains who was sent here from [facility], [facility] for persistent fever and abnormal labs including a elevated LDH and CK. Patient reportedly had a negative COVID test two days ago, but today is hypoxic ( ABG noted on 2L NC). When visited he actually states he is breathing fine, the labs w/o elevated WBC, however CXR w/ infiltrate. At this point, I do have a high suspicion for COVID; test has been sent. Patient is in isolation. #Acute Hypoxic Respiratory Failure, R/O COVID vs HCAP #Lactic Acidosis-Resolved -cont. in-pt medical care -CXR w/ + Infiltrate, COPD HX -elevated predictive markers including Ddimer , US negative for DVT -first COVID negative, concern for false negative, pending second COVID test -cont breathing treatments -Trend Predictive Markers and Ddimer- Q3 days -> if Ddimer continues to climb to > 10 times normal, consider Heparin gtt vs Lovenox BID -Acharya CX negative -pulm following, appreciate recs -ID following - CTX, azithro #HTN -cont HTN meds -PRN for BP and pain as needed #Bipolar/Schizophrenia #Chronic Pain -cont home psych meds DVT ppx - lovenox Time spent: 35 mins, 25 mins spent on pt counseling, coordination of care w/RN and consultants. Additional 45 mins spent on chart review, H&P, progress notes, previous labs and radiographic findings. Subjective Allergies: Coded Allergies: No Known Allergies (Unverified , 07/27/19) Subjective F/u for hypoxia, pending COVID. Pt with no concerns today, denies SOB, CP, abd pain. Objective Last 24 Hour Vital Signs Date Time Temp Pulse Resp B/P (MAP) Pulse Ox O2 Delivery O2 Flow Rate FiO2 07/30/19 08:40 79 132/74 07/30/19 08:39 79 132/74 07/30/19 05:15 149/70 07/30/19 04:00 98.2 66 20 146/77 (100) 98 07/30/19 00:00 96.7 65 20 146/76 (99) 90 07/29/19 22:03 72 147/74 07/29/19 22:03 147/74 07/29/19 21:00 Nasal Cannula 2.0 07/29/19 20:00 97.9 75 24 152/82 (105) 92 07/29/19 17:27 98.6 07/29/19 16:00 98.6 67 16 141/75 (97) 92 07/29/19 13:59 149/77 07/29/19 12:08 98.0 66 20 147/76 (99) 97 07/29/19 10:54 Nasal Cannula 2.0 07/29/19 09:16 78 148/80 07/29/19 09:16 78 148/80 Intake and Output 07/29/19 07/30/19 19:00 07:00 Intake Total 330 ml 480 ml Output Total 1700 ml 1100 ml Balance -1370 ml -620 ml Intake Oral 480 ml IV Total 330 ml Output Urine Total 1700 ml 1100 ml # Voids 1 Laboratory Tests 07/30/19 05:30: White Blood Count 8.1, Red Blood Count 4.46L, Hemoglobin 13.2L, Hematocrit 38.5L , Mean Corpuscular Volume 86, Mean Corpuscular Hemoglobin 29.5, Mean Corpuscular Hemoglobin Concent 34.2, Red Cell Distribution Width 13.2, Platelet Count 429, Mean Platelet Volume 5.9L, Neutrophils (%) (Auto) 71.7, Lymphocytes ( %) (Auto) 21.0, Monocytes (%) (Auto) 4.9, Eosinophils (%) (Auto) 1.1, Basophils (%) (Auto) 1.2, Sodium Level 135L, Potassium Level 3.8, Chloride Level 101, Carbon Dioxide Level 25, Anion Gap 9, Blood Urea Nitrogen 12, Creatinine 0.6, Estimat Glomerular Filtration Rate > 60, Glucose Level 105, Calcium Level 10.1, Phosphorus Level 5.3H, Magnesium Level 2.1, Total Bilirubin 0.4, Aspartate Amino Transf (AST/SGOT) 49H, Alanine Aminotransferase (ALT/SGPT) 39, Alkaline Phosphatase 289H, Total Protein 8.4H, Albumin 2.7L, Globulin 5.7, Albumin/ Globulin Ratio 0.5L Height (Feet): 6 Height (Inches): 0.00 Weight (Pounds): 190 Objective General appearance: alert, cooperative, no distress, appears stated age Head: Normocephalic, without obvious abnormality, atraumatic Lungs: CTAB, on room air, no accessory muscle usage Heart: regular rate and rhythm, S1, S2 normal, no murmur, click, rub or gallop Abdomen: soft, non-tender. Bowel sounds normal. No masses, no organomegaly Extremities: extremities normal, atraumatic, no cyanosis or edema, right shoulder scarring noted Pulses: 2+ and symmetric Skin: Skin color, texture, turgor normal. No rashes or lesions Neurologic: Grossly normal Delmy Leiva M.D. July 30, 2019 08:49
[2019-07-30] MEDS: cefTRIAXone 1 GM in NS 55 ML IVPB SCH (10:20)
--- NOTE | 2019-07-30 10:22 | NUR ---
DISCHARGE PLANNING PATIENT HAS BEEN REFERRED BACK TO: [facility] P: [phone] F: [phone] Addendum: 07/30/19 at 1026 by FROYLAN BRANDON LVN [facility]N [facility] Addendum: 07/30/19 at 1133 by FROYLAN BRANDON LVN LVN FOLLOW UP WITH [facility]. S/W REQUESTS REPEAT COVID TEST. INFORMED THAT SECOND COVID RESULT PENDING. STATED THEY ARE ABLE TO READMIT PATIENT PENDING RESULT OF REPEAT COVID.
[2019-07-30 12:00] VITALS: BP 141/83
[2019-07-30] MEDS: Azithromycin 500 MG in NS 275 ML IV SCH (12:39)
[2019-07-30 16:00] VITALS: BP 155/90
--- NOTE | 2019-07-30 16:06 | Pulmonology Progress Note ---
Subjective Interval Events: None new Constitutional: Reports: no symptoms HEENT: Repors: no symptoms Respiratory: Reports: no symptoms Cardiovascular: Reports: no symptoms Gastrointestinal/Abdominal: Reports: no symptoms Genitourinary: Reports: no symptoms Allergies: Coded Allergies: No Known Allergies (Unverified , 07/27/19) Objective Last 24 Hour Vital Signs Date Time Temp Pulse Resp B/P (MAP) Pulse Ox O2 Delivery O2 Flow Rate FiO2 07/30/19 13:48 141/83 07/30/19 12:00 98.1 66 18 141/83 (102) 92 07/30/19 08:40 79 132/74 07/30/19 08:39 79 132/74 07/30/19 08:00 96.6 79 20 132/74 (93) 100 07/30/19 05:15 149/70 07/30/19 04:00 98.2 66 20 146/77 (100) 98 07/30/19 00:00 96.7 65 20 146/76 (99) 90 07/29/19 22:03 72 147/74 07/29/19 22:03 147/74 07/29/19 21:00 Nasal Cannula 2.0 07/29/19 20:00 97.9 75 24 152/82 (105) 92 07/29/19 17:27 98.6 Intake and Output 07/29/19 07/30/19 19:00 07:00 Intake Total 330 ml 480 ml Output Total 1700 ml 1100 ml Balance -1370 ml -620 ml Intake Oral 480 ml IV Total 330 ml Output Urine Total 1700 ml 1100 ml # Voids 1 General Appearance: no acute distress HEENT: normocephalic Respiratory/Chest: chest wall non-tender, lungs clear Cardiovascular: normal peripheral pulses Abdomen: normal bowel sounds Microbiology Date/Time Source Procedure Growth Status 07/27/19 16:25 Nasal Nares MRSA Culture - Final NO METHICILLIN RESISTANT STAPH AUREUS... Complete 07/27/19 16:25 Rectum VRE Culture - Final NO VANCOMYCIN RESISTANT ENTEROCOCCUS ... Complete 07/27/19 16:25 Rectum - Final NO CARBAPENEM-RESISTANT ENTEROBACTERI... Complete Laboratory Tests 07/30/19 05:30: White Blood Count 8.1, Red Blood Count 4.46L, Hemoglobin 13.2L, Hematocrit 38.5L , Mean Corpuscular Volume 86, Mean Corpuscular Hemoglobin 29.5, Mean Corpuscular Hemoglobin Concent 34.2, Red Cell Distribution Width 13.2, Platelet Count 429, Mean Platelet Volume 5.9L, Neutrophils (%) (Auto) 71.7, Lymphocytes ( %) (Auto) 21.0, Monocytes (%) (Auto) 4.9, Eosinophils (%) (Auto) 1.1, Basophils (%) (Auto) 1.2, Sodium Level 135L, Potassium Level 3.8, Chloride Level 101, Carbon Dioxide Level 25, Anion Gap 9, Blood Urea Nitrogen 12, Creatinine 0.6, Estimat Glomerular Filtration Rate > 60, Glucose Level 105, Calcium Level 10.1, Phosphorus Level 5.3H, Magnesium Level 2.1, Total Bilirubin 0.4, Aspartate Amino Transf (AST/SGOT) 49H, Alanine Aminotransferase (ALT/SGPT) 39, Alkaline Phosphatase 289H, Total Protein 8.4H, Albumin 2.7L, Globulin 5.7, Albumin/ Globulin Ratio 0.5L Current Medications Medications (Trade) Dose Ordered Sig/Amita Route PRN Reason Start Time Stop Time Status Last Admin Dose Admin Acetaminophen (Tylenol) 650 mg Q4H PRN ORAL Mild Pain (Pain Scale 1-3) 07/27/19 18:00 08/26/19 17:59 07/29/19 16:57 Albuterol/ Ipratropium (Albuterol/ Ipratropium) 3 ml Q6H PRN HHN Shortness of Breath 07/27/19 18:00 08/01/19 17:59 Amlodipine Besylate (Norvasc) 10 mg DAILY ORAL 07/28/19 09:00 08/27/19 08:59 07/30/19 08:40 Aripiprazole (Abilify) 20 mg DAILY ORAL 07/28/19 09:00 09/11/19 08:59 07/30/19 08:39 Azithromycin 500 mg/Sodium Chloride 275 ml @ 275 mls/hr DAILY IV 07/28/19 09:00 08/02/19 08:59 07/30/19 12:39 Ceftriaxone Sodium 1 gm/ Sodium Chloride 55 ml @ 110 mls/hr DAILY IVPB 07/28/19 16:15 08/03/19 16:14 07/30/19 10:20 Dextrose (Dextrose 50%) 25 ml Q30M PRN IV Hypoglycemia 07/27/19 18:00 10/25/19 17:59 Dextrose (Dextrose 50%) 50 ml Q30M PRN IV Hypoglycemia 07/27/19 18:00 10/25/19 17:59 Divalproex Sodium (Depakote ER) 250 mg EVERY 12 HOURS ORAL 07/27/19 21:00 08/26/19 20:59 07/30/19 08:40 Docusate Sodium (Colace) 100 mg EVERY 12 HOURS ORAL 07/27/19 21:00 08/26/19 20:59 07/30/19 08:40 Duloxetine HCl (Cymbalta) 30 mg DAILY ORAL 07/28/19 11:00 10/26/19 08:59 07/30/19 08:39 Enoxaparin Sodium (Lovenox) 40 mg Q24H SUBQ 07/27/19 21:00 10/25/19 20:59 07/29/19 22:08 Famotidine (Pepcid) 20 mg BID ORAL 07/27/19 18:00 10/25/19 17:59 07/30/19 08:40 Hydralazine HCl (Apresoline) 25 mg EVERY 8 HOURS ORAL 07/27/19 22:00 10/25/19 21:59 07/30/19 13:48 Metoprolol Tartrate (Lopressor) 25 mg EVERY 12 HOURS ORAL 07/27/19 21:00 10/25/19 20:59 07/30/19 08:39 Morphine Sulfate (Morphine Sulfate) 1 mg Q6H PRN IVP PAIN 4-10 07/27/19 18:00 08/03/19 17:59 Ondansetron HCl (Zofran) 4 mg Q6H PRN IVP Nausea & Vomiting 07/27/19 18:00 08/26/19 17:59 Assessment/Plan Assessment/Plan IMPRESSION: 1. Bilateral pneumonia. 2. shelter resident. 3. Hypertension. 4. Diabetes mellitus. 5. Schizophrenia. 6. Bipolar disorder. 7. Negative COVID-19 PCR. DISCUSSION: Agree with broad-spectrum antibiotics. Oxygen and pulmonary hygiene. With high D-dimer, abnormal x-ray, and clinical scenario, I suspect he has COVID -19. Repeat COVID-19 PCR pending. 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 Benita Jama,Haresh Mac MD July 30, 2019 16:06
--- NOTE | 2019-07-30 19:10 | NUR ---
HAND-OFF: Report given to Alessandra.
--- NOTE | 2019-07-30 19:32 | NUR ---
NURSE NOTES: Received report from ASHU Ellswroth. Patient awake, alert in bed. On room air, no signs of distress or labored breathing. IV intact, patent, and saline locked. Bed in lowest position with call light in reach. Will continue with plan of care. Addendum: 07/31/19 at 0807 by Alessandra Solomon RN WRONG NURSE. RECEIVED REPORT FROM SIGRID THOMPSON.
[2019-07-30 20:00] VITALS: BP 140/78
[2019-07-30] MEDS: Enoxaparin 40mg Inj SUBQ SCH (22:22)
[2019-07-31] VITALS: BP 132/76
[2019-07-31 04:00] VITALS: BP 150/75
[2019-07-31] MEDS: HydrALAZINE 25mg tab ORAL SCH ×2 (06:05→14:52)
--- NOTE | 2019-07-31 07:34 | NUR ---
HAND-OFF: Report given to ASHU Bishop. Rounds done.
[2019-07-31 08:00] VITALS: BP 114/82
--- NOTE | 2019-07-31 08:00 | NUR ---
NURSE NOTES: Patient is alert and oriented, respirations unlabored.Saline lock in place Patient ambulate to bathroom ,back to bed.call light within reach. ,
[2019-07-31 08:30] LABS: BASOPHILS % (AUTO) 1.7 % (0.0-2.0); EOSINOPHILS % (AUTO) 1.1 % (0.0-3.0); HEMOGLOBIN 13.1 G/DL (14.2-18.0); MEAN CORPUSCULAR VOLUME 86 FL (80-99); MONOCYTES % (AUTO) 6.3 % (1.0-10.0); NEUTROPHILS % (AUTO) 73.9 % (45.0-75.0); PLATELET COUNT 426 K/UL (150-450); RED BLOOD COUNT 4.43 M/UL (4.70-6.10); RED CELL DISTRIBUTION WIDTH 13.2 % (11.6-14.8); WHITE BLOOD COUNT 7.4 K/UL (4.8-10.8)
[2019-07-31] MEDS ORDERED: Tubing IV Secondary IV ONE (08:51)
[2019-07-31 08:52] LABS: ANION GAP 14 mmol/L (5-15); BLOOD UREA NITROGEN 12 mg/dL (7-18); CALCIUM 10.4 MG/DL (8.5-10.1); CARBON DIOXIDE 23 MMOL/L (21-32); CHLORIDE 98 MMOL/L (98-107); CREATININE 0.6 MG/DL (0.55-1.30); POTASSIUM 3.8 MMOL/L (3.5-5.1); SODIUM 135 MMOL/L (136-145)
[2019-07-31] MEDS: cefTRIAXone 1 GM in NS 55 ML IVPB SCH (09:00)
[2019-07-31] MEDS: Azithromycin 500 MG in NS 275 ML IV SCH (09:29)
[2019-07-31] MEDS: DULoxetine 30mg cap ORAL SCH (09:30)
[2019-07-31] MEDS: Depakote ER 250mg tab ORAL SCH (09:33)
[2019-07-31] MEDS: Docusate 100mg cap ORAL SCH (09:33)
[2019-07-31] MEDS: ARIPiprazole 10mg tab ORAL SCH (09:34)
--- NOTE | 2019-07-31 09:38 | General Progress Note ---
Assessment/Plan Status: unchanged Assessment/Plan: 54 yo M w/ a pmh of HTN, bipolar schizophrenia, and chronic muscular pains who was sent here from [facility] [place] for persistent fever and abnormal labs including a elevated LDH and CK. Patient reportedly had a negative COVID test two days ago, but today is hypoxic ( ABG noted on 2L NC). When visited he actually states he is breathing fine, the labs w/o elevated WBC, however CXR w/ infiltrate. At this point, I do have a high suspicion for COVID; test has been sent. Patient is in isolation. #Acute Hypoxic Respiratory Failure, R/O COVID vs HCAP #Lactic Acidosis-Resolved -cont. in-pt medical care -CXR w/ + Infiltrate, COPD HX -elevated predictive markers including Ddimer , US negative for DVT -first COVID negative, concern for false negative, second COVID test negative -cont breathing treatments -Acharya CX negative -pulm following, appreciate recs -ID following - CTX, azithro -obtain CTA chest to r/o PE, if negative will d/c home to [facility] #HTN -cont HTN meds -PRN for BP and pain as needed #Bipolar/Schizophrenia #Chronic Pain -cont home psych meds DVT ppx - lovenox Time spent: 39 mins, 25 mins spent on pt counseling, coordination of care w/RN, Dr. Jaramillo, Dr Jay and CM. Subjective Allergies: Coded Allergies: No Known Allergies (Unverified , 07/27/19) Subjective F/u for hypoxia, COVID negative x2. Pt with no concerns today, denies SOB, CP, abd pain. Wants to know when he is going home. Objective Last 24 Hour Vital Signs Date Time Temp Pulse Resp B/P (MAP) Pulse Ox O2 Delivery O2 Flow Rate FiO2 07/31/19 09:27 Room Air 07/31/19 08:00 98.1 86 18 114/82 (93) 99 07/31/19 06:05 150/75 07/31/19 04:00 99.0 69 18 150/75 (100) 98 07/31/19 00:00 98.9 72 18 132/76 (94) 99 07/30/19 22:24 76 140/78 07/30/19 22:21 140/78 07/30/19 21:00 Room Air 07/30/19 20:00 99.0 76 19 140/78 (98) 97 07/30/19 18:40 98.2 07/30/19 16:00 98.2 73 18 155/90 (111) 95 07/30/19 13:48 141/83 07/30/19 12:00 98.1 66 18 141/83 (102) 92 Intake and Output 07/30/19 07/31/19 19:00 07:00 Intake Total 503 ml Output Total 500 ml Balance 3 ml Intake Oral 118 ml IV Total 385 ml Output Urine Total 500 ml # Voids 3 Laboratory Tests 07/31/19 08:15: White Blood Count 7.4, Red Blood Count 4.43L, Hemoglobin 13.1L, Hematocrit 38.0L , Mean Corpuscular Volume 86, Mean Corpuscular Hemoglobin 29.5, Mean Corpuscular Hemoglobin Concent 34.4, Red Cell Distribution Width 13.2, Platelet Count 426, Mean Platelet Volume 5.8L, Neutrophils (%) (Auto) 73.9, Lymphocytes ( %) (Auto) 17.0L, Monocytes (%) (Auto) 6.3, Eosinophils (%) (Auto) 1.1, Basophils (%) (Auto) 1.7, Sodium Level 135L, Potassium Level 3.8, Chloride Level 98, Carbon Dioxide Level 23, Anion Gap 14, Blood Urea Nitrogen 12, Creatinine 0.6, Estimat Glomerular Filtration Rate > 60, Glucose Level 192H, Calcium Level 10.4H Height (Feet): 6 Height (Inches): 0.00 Weight (Pounds): 190 Objective General appearance: alert, cooperative, no distress, appears stated age, laying in bed comfortably on RA Head: Normocephalic, without obvious abnormality, atraumatic Lungs: CTAB, on room air, no accessory muscle usage Heart: regular rate and rhythm, S1, S2 normal, no murmur, click, rub or gallop Abdomen: soft, non-tender. Bowel sounds normal. No masses, no organomegaly Extremities: extremities normal, atraumatic, no cyanosis or edema, right shoulder scarring noted Pulses: 2+ and symmetric Skin: Skin color, texture, turgor normal. No rashes or lesions Neurologic: Grossly normal Delmy Leiva M.D. July 31, 2019 09:38
[2019-07-31] MEDS ORDERED: Omnipaque 350 100ml vial INJ PRN (09:45)
--- NOTE | 2019-07-31 11:27 | NUR ---
DISCHARGE PLANNING FOLLOW UP WITH [facility] @ [phone]. S/W MADELINE, CONFIRMED PATIENT MAY RETURN TO [facility] [address] THERESE FITZGERALD. SHE WILL DC TODAY PENDING CTA FINDINGS. Addendum: 07/31/19 at 1653 by FROYLAN BRANDON [facility] SCHEDULED WITH [facility] WITH ETA @ 1900 PM. Addendum: 07/31/19 at 1714 by FROYLAN BRANDON [facility] [employer] TIME CHANGED TO 1830 CONFIRMED WITH [facility] AT [facility]. VIRGIL FITZGERALD.
[2019-07-31 12:00] VITALS: BP 116/80
--- NOTE | 2019-07-31 12:18 | Pulmonology Progress Note ---
Subjective Interval Events: None new Constitutional: Reports: no symptoms HEENT: Repors: no symptoms Respiratory: Reports: no symptoms Cardiovascular: Reports: no symptoms Gastrointestinal/Abdominal: Reports: no symptoms Genitourinary: Reports: no symptoms Allergies: Coded Allergies: No Known Allergies (Unverified , 07/27/19) Objective Last 24 Hour Vital Signs Date Time Temp Pulse Resp B/P (MAP) Pulse Ox O2 Delivery O2 Flow Rate FiO2 07/31/19 09:32 64 144/76 07/31/19 09:32 64 144/76 07/31/19 09:27 Room Air 07/31/19 08:00 98.1 86 18 114/82 (93) 99 07/31/19 06:05 150/75 07/31/19 04:00 99.0 69 18 150/75 (100) 98 07/31/19 00:00 98.9 72 18 132/76 (94) 99 07/30/19 22:24 76 140/78 07/30/19 22:21 140/78 07/30/19 21:00 Room Air 07/30/19 20:00 99.0 76 19 140/78 (98) 97 07/30/19 18:40 98.2 07/30/19 16:00 98.2 73 18 155/90 (111) 95 07/30/19 13:48 141/83 Intake and Output 07/30/19 07/31/19 19:00 07:00 Intake Total 503 ml Output Total 500 ml Balance 3 ml Intake Oral 118 ml IV Total 385 ml Output Urine Total 500 ml # Voids 3 General Appearance: no acute distress HEENT: normocephalic Respiratory/Chest: chest wall non-tender, lungs clear Cardiovascular: normal peripheral pulses Abdomen: normal bowel sounds Microbiology Date/Time Source Procedure Growth Status 07/29/19 11:10 Nasopharynx Coronavirus COVID-19 PCR ([place]) - Final Complete Laboratory Tests 07/31/19 08:15: White Blood Count 7.4, Red Blood Count 4.43L, Hemoglobin 13.1L, Hematocrit 38.0L , Mean Corpuscular Volume 86, Mean Corpuscular Hemoglobin 29.5, Mean Corpuscular Hemoglobin Concent 34.4, Red Cell Distribution Width 13.2, Platelet Count 426, Mean Platelet Volume 5.8L, Neutrophils (%) (Auto) 73.9, Lymphocytes ( %) (Auto) 17.0L, Monocytes (%) (Auto) 6.3, Eosinophils (%) (Auto) 1.1, Basophils (%) (Auto) 1.7, Sodium Level 135L, Potassium Level 3.8, Chloride Level 98, Carbon Dioxide Level 23, Anion Gap 14, Blood Urea Nitrogen 12, Creatinine 0.6, Estimat Glomerular Filtration Rate > 60, Glucose Level 192H, Calcium Level 10.4H Current Medications Medications (Trade) Dose Ordered Sig/Amita Route PRN Reason Start Time Stop Time Status Last Admin Dose Admin Acetaminophen (Tylenol) 650 mg Q4H PRN ORAL Mild Pain (Pain Scale 1-3) 07/27/19 18:00 08/26/19 17:59 07/30/19 18:10 Albuterol/ Ipratropium (Albuterol/ Ipratropium) 3 ml Q6H PRN HHN Shortness of Breath 07/27/19 18:00 08/01/19 17:59 Amlodipine Besylate (Norvasc) 10 mg DAILY ORAL 07/28/19 09:00 08/27/19 08:59 07/31/19 09:32 Aripiprazole (Abilify) 20 mg DAILY ORAL 07/28/19 09:00 09/11/19 08:59 07/31/19 09:34 Azithromycin 500 mg/Sodium Chloride 275 ml @ 275 mls/hr DAILY IV 07/28/19 09:00 08/02/19 08:59 07/31/19 09:29 Ceftriaxone Sodium 1 gm/ Sodium Chloride 55 ml @ 110 mls/hr DAILY IVPB 07/28/19 16:15 08/03/19 16:14 07/30/19 10:20 Ceftriaxone Sodium 1 gm/ Sodium Chloride 55 ml @ 110 mls/hr ONCE ONCE IVPB 07/31/19 13:00 07/31/19 13:29 Dextrose (Dextrose 50%) 25 ml Q30M PRN IV Hypoglycemia 07/27/19 18:00 10/25/19 17:59 Dextrose (Dextrose 50%) 50 ml Q30M PRN IV Hypoglycemia 07/27/19 18:00 10/25/19 17:59 Divalproex Sodium (Depakote ER) 250 mg EVERY 12 HOURS ORAL 07/27/19 21:00 08/26/19 20:59 07/31/19 09:33 Docusate Sodium (Colace) 100 mg EVERY 12 HOURS ORAL 07/27/19 21:00 08/26/19 20:59 07/31/19 09:33 Duloxetine HCl (Cymbalta) 30 mg DAILY ORAL 07/28/19 11:00 10/26/19 08:59 07/31/19 09:30 Enoxaparin Sodium (Lovenox) 40 mg Q24H SUBQ 07/27/19 21:00 10/25/19 20:59 07/30/19 22:22 Famotidine (Pepcid) 20 mg BID ORAL 07/27/19 18:00 10/25/19 17:59 07/31/19 09:30 Hydralazine HCl (Apresoline) 25 mg EVERY 8 HOURS ORAL 07/27/19 22:00 10/25/19 21:59 07/31/19 06:05 Iohexol (Omnipaque 350 100ml) 100 ml NOW PRN INJ Radiology Procedure 07/31/19 09:45 08/02/19 09:36 Metoprolol Tartrate (Lopressor) 25 mg EVERY 12 HOURS ORAL 07/27/19 21:00 10/25/19 20:59 07/31/19 09:32 Morphine Sulfate (Morphine Sulfate) 1 mg Q6H PRN IVP PAIN 4-10 07/27/19 18:00 08/03/19 17:59 07/31/19 03:52 Ondansetron HCl (Zofran) 4 mg Q6H PRN IVP Nausea & Vomiting 07/27/19 18:00 08/26/19 17:59 Assessment/Plan Assessment/Plan IMPRESSION: 1. Bilateral pneumonia. 2. residential resident. 3. Hypertension. 4. Diabetes mellitus. 5. Schizophrenia. 6. Bipolar disorder. 7. Negative COVID-19 PCR. DISCUSSION: Agree with broad-spectrum antibiotics. Oxygen and pulmonary hygiene. With high D-dimer, abnormal x-ray, and clinical scenario, I suspect he has COVID -19; however COVID 10 pcr x 2 is negative Agree to rule out PE Saturaing well on RA I will follow as medicine teacher. Benita Jama Omar Syed MD July 31, 2019 12:18
[2019-07-31] MEDS ORDERED: cefTRIAXone 1 GM in NS 55 ML IVPB ONE (13:00)
[2019-07-31] MEDS ORDERED: CEFTRIAXON1 GM/50 ML IV (13:56)
[2019-07-31] MEDS ORDERED: AZITHROMYCIN500 MG ORAL (13:56)
--- NOTE | 2019-07-31 14:01 | Discharge Summary ---
Discharge Summary Hospital Course Date of Admission July 27, 2019 at 14:04 Date of Discharge 07/31/19 Admitting Diagnosis uri, herbal covid HPI [place] Óscar is a 54 year old male who was admitted on July 27, 2019 at 14:04 for Abnormal Labs Hospital Course 54 yo M w/ a pmh of HTN, bipolar schizophrenia, and chronic muscular pains who was sent here from [facility] for persistent fever and abnormal labs including a elevated LDH and CK. Patient reportedly had a negative COVID test two days ago, but today is hypoxic ( ABG noted on 2L NC). Pt was admitted for acute hypoxic respiratory failure, due to HCAP. COVID was ruled out, negative x2. Patient had garcia cultures which were all negative, no leukocytosis or fevers. Patient improved with antibiotics, ceftriaxone and azithromycin. D/w ID who stated pt to have 3 more days of abx. Patient to be DC'd back to halfway in stable condition to finish 3 more days of antibiotics of ceftriaxone and azithromycin. d/c diagnosis: #Acute Hypoxic Respiratory Failure, 2/2 HCAP #Lactic Acidosis-Resolved #HTN #Bipolar/Schizophrenia #Chronic Pain D/c planning >30 mins. Discharge Medications New Medications: Azithromycin (Azithromycin) 500 Mg Tablet 500 MG ORAL DAILY for 3 Days, #3 TAB Ceftriaxone Na/Dextrose,Iso (Ceftriaxone 1 Gm Piggyback) 1 Gm/50 Ml Froz.piggy 1 GM IV DAILY for 3 Days, #3 BAG Continued Medications: Amlodipine Besylate* (Amlodipine Besylate*) 10 Mg Tablet 10 MG ORAL DAILY for htn, TAB Aripiprazole* (Abilify*) 20 Mg Tablet 20 MG ORAL DAILY for schizophrenia, TAB Cranberry Fruit (Cranberry) 450 Mg Tablet 450 MG PO for supplement, TAB Dextrose (Glucose Gel) 38 Gm Gel..gram. 38 GM PO for hypoglycemia, GM Divalproex Sodium* (Depakote Er*) 250 Mg Tab.er.24h 250 MG ORAL EVERY 12 HOURS for bipolar disorder, TAB Docusate Sodium* (Docusate Sodium*) 100 Mg Capsule 100 MG ORAL TWICE A DAY for constipation, CAP Duloxetine Hcl* (Cymbalta*) 30 Mg Capsule.dr 30 MG ORAL DAILY for depression, CAP Glucagon,Human Recombinant (Glucagon Emergency Kit) 1 Mg Kit 1 MG IJ for hypoglycemia, KIT Hydralazine Hcl* (Hydralazine Hcl*) 25 Mg Tablet 25 MG ORAL EVERY 8 HOURS for htn, TAB 0 Refills Ibuprofen* (Motrin*) 600 Mg Tablet 800 MG ORAL FOUR TIMES A DAY for pain , #30 TAB 0 Refills Insulin Glargine (Lantus) 100 Unit/1 Ml Insuln.pen 0 SUBQ BEDTIME for DM, #1 EA 0 Refills Metformin Hcl* (Metformin Hcl*) 850 Mg Tablet 850 MG ORAL DAILY for dm , TAB Metoprolol Tartrate* (Metoprolol Tartrate*) 25 Mg Tablet 25 MG ORAL EVERY 12 HOURS for htn , TAB Na Phos,M-B/Na Phos,Di-Ba* (Fleet Enema*) 133 Ml Enema 133 ML RECTAL DAILY for constipation, ML 0 Refills Discharge Condition Upon Discharge: stable Discharge Vital Signs Last Vital Signs Date Time Temp Pulse Resp B/P (MAP) Pulse Ox O2 Delivery O2 Flow Rate FiO2 07/31/19 12:00 98.3 89 18 116/80 (92) 98 07/31/19 09:27 Room Air 07/30/19 09:00 2.0 Discharge Disposition Patient was discharged to [facility] Delmy Leiva M.D. July 31, 2019 14:01
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
[2019-07-31 16:00] VITALS: BP 133/78
--- NOTE | 2019-07-31 16:46 | Discharge Instructions ---
Discharge Instructions Discharge Instructions Follow up with: f/u w/PCP, oncologist Dr. Burch as o/p. Call for an apt. For Congestive Heart Failure Reminder Report to your physician any weight gain of 5 pounds or more in one week. Delmy Leiva M.D. July 31, 2019 16:46
--- NOTE | 2019-07-31 16:52 | Discharge Summary ---
Discharge Summary Hospital Course Date of Admission July 27, 2019 at 14:04 Date of Discharge Admitting Diagnosis urichapincito covid HPI [place] Óscar is a 54 year old male who was admitted on July 27, 2019 at 14:04 for Abnormal Labs Hospital Course 54 yo M w/ a pmh of HTN, bipolar schizophrenia, and chronic muscular pains who was sent here from SNF, presented w/ persistent fever and abnormal labs including a elevated LDH and CK. Patient reportedly had a negative COVID test two days ago, but today is hypoxic ( ABG noted on 2L NC). Pt was admitted for acute hypoxic respiratory failure, due to HCAP. COVID was ruled out, negative x2. Patient had garcia cultures which were all negative, no leukocytosis or fevers. Patient improved with antibiotics, ceftriaxone and azithromycin. D/w ID who stated pt to have 3 more days of abx. CTA was negative for PE, evidence of lesions in Lung, LN mediastinum, liver, and bone suspicious for mets. Discussed w/pt CTA findings and need to follow up w/Oncology as o/p, gave pt phone number to call and endorsed findings w/pt's physician who will be following him at the senior care as well as the Oncologist. Patient to be DC'd back to senior care in stable condition to finish 3 more days of antibiotics of ceftriaxone and azithromycin, w/f/u w/PCP, and oncologist. d/c diagnosis: #Acute Hypoxic Respiratory Failure, 2/2 HCAP #Lactic Acidosis-Resolved #Lung masses suspicious for mets #liver mass suspicious for mets #HTN #Bipolar/Schizophrenia #Chronic Pain #Smoker D/c planning >30 mins. Discharge Medications New Medications: Azithromycin (Azithromycin) 500 Mg Tablet 500 MG ORAL DAILY for 3 Days, #3 TAB Ceftriaxone Na/Dextrose,Iso (Ceftriaxone 1 Gm Piggyback) 1 Gm/50 Ml Froz.piggy 1 GM IV DAILY for 3 Days, #3 BAG Continued Medications: Amlodipine Besylate* (Amlodipine Besylate*) 10 Mg Tablet 10 MG ORAL DAILY for htn, TAB Aripiprazole* (Abilify*) 20 Mg Tablet 20 MG ORAL DAILY for schizophrenia, TAB Cranberry Fruit (Cranberry) 450 Mg Tablet 450 MG PO for supplement, TAB Dextrose (Glucose Gel) 38 Gm Gel..gram. 38 GM PO for hypoglycemia, GM Divalproex Sodium* (Depakote Er*) 250 Mg Tab.er.24h 250 MG ORAL EVERY 12 HOURS for bipolar disorder, TAB Docusate Sodium* (Docusate Sodium*) 100 Mg Capsule 100 MG ORAL TWICE A DAY for constipation, CAP Duloxetine Hcl* (Cymbalta*) 30 Mg Capsule.dr 30 MG ORAL DAILY for depression, CAP Glucagon,Human Recombinant (Glucagon Emergency Kit) 1 Mg Kit 1 MG IJ for hypoglycemia, KIT Hydralazine Hcl* (Hydralazine Hcl*) 25 Mg Tablet 25 MG ORAL EVERY 8 HOURS for htn, TAB 0 Refills Ibuprofen* (Motrin*) 600 Mg Tablet 800 MG ORAL FOUR TIMES A DAY for pain , #30 TAB 0 Refills Insulin Glargine (Lantus) 100 Unit/1 Ml Insuln.pen 0 SUBQ BEDTIME for DM, #1 EA 0 Refills Metformin Hcl* (Metformin Hcl*) 850 Mg Tablet 850 MG ORAL DAILY for dm , TAB Metoprolol Tartrate* (Metoprolol Tartrate*) 25 Mg Tablet 25 MG ORAL EVERY 12 HOURS for htn , TAB Na Phos,M-B/Na Phos,Di-Ba* (Fleet Enema*) 133 Ml Enema 133 ML RECTAL DAILY for constipation, ML 0 Refills Discharge Condition Upon Discharge: stable Discharge Vital Signs Last Vital Signs Date Time Temp Pulse Resp B/P (MAP) Pulse Ox O2 Delivery O2 Flow Rate FiO2 07/31/19 14:52 122/75 07/31/19 12:00 98.3 89 18 98 07/31/19 09:27 Room Air 07/30/19 09:00 2.0 Discharge Disposition Patient was discharged to SNF Discharge Instructions Discharge Instructions Follow up with: f/u w/PCP, oncologist Dr. Burch as o/p. Call for an apt. Delmy Leiva M.D. July 31, 2019 16:52
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
--- NOTE | 2019-07-31 18:46 | NUR ---
NURSE NOTES: Discharge at this time with discharge instructions given.Report given to Mary Kate MATTA at [facility].ID hospital l D band removed.Patient saline lock remain in place . patient will receive IV antibiotic at facility.Patient has belongings.Patient family member aware of patient discharge.[facility] ambulance personnel will transport patient.
== END 2019-07-31 18:44 | DRG 193 ==
LOC: EDBD 12:56 → EMR 13:20 → 4E 14:04 → EDBEDREQ 07-28 16:20
DX: J18.9 Pneumonia, unspecified organism (principal); J96.01 Acute respiratory failure with hypoxia; E87.2 Acidosis; C78.7 Secondary malignant neoplasm of liver and intrahepatic bile duct; C78.00 Secondary malignant neoplasm of unspecified lung; F31.9 Bipolar disorder, unspecified; F20.9 Schizophrenia, unspecified; I10 Essential (primary) hypertension; G89.29 Other chronic pain; F17.200 Nicotine dependence, unspecified, uncomplicated; E11.9 Type 2 diabetes mellitus without complications; Z79.4 Long term (current) use of insulin
CPT/HCPCS: 36415; 36600; 71045; 71275; 80048; 80053; 81003; 82550; 82553; 82728; 82803; 82962; 83036; 83605; 83615; 83690; 83735; 83880; 84100; 84484; 85025; 85379; 86140; 87040; 87081; 87635; 93005; 93970; 96361; 96365; 96375; 99285; J2405; J7030

== ENCOUNTER 2019-08-16 15:00 | Inpatient (IN) | payer MEDICARE, MEDICAID ==
[~2019-08-16] VITALS: Ht 185.4 cm; Wt 78.7 kg
[~2019-08-16 15:00] MED LIST: ABILIFY20 MG ORAL; AMLODIPINE BESY10 MG ORAL; AZITHROMYCIN500 MG ORAL; CEFTRIAXON1 GM/50 ML IV; CRANBERRY450 M5 PO; CYMBALTA30 MG ORAL; DEPAKOTE ER250 MG ORAL; DOCUSATE SODIU100 MG ORAL; FLEET ENEMA133 ML RECTAL; GLUCAGON EMERGEN1 MG IJ; GLUCOSE GEL38 GM PO; HYDRALAZINE HCL25 M1 ORAL; IBUPROFEN600 M1 ORAL; LANTUS SOL100 UNIT/1 SUBQ; METFORMIN HCL850 M1 ORAL; METOPROLOL TART25 MG ORAL
--- NOTE | 2019-08-16 15:17 | Emergency Room Report ---
History of Present Illness General Chief Complaint: General Complaint Source: Patient, Family Member Present Illness HPI Disclaimer: Please note that this report is being documented using [employer]ON technology. This can lead to erroneous entry secondary to incorrect interpretation by the dictating instrument. HPI: 54-year-old male with a history of alcohol abuse, schizophrenia, recently diagnosed neoplasm, hypertension presents for evaluation of weakness and vomiting. Patient arrives from nursing facility reporting intermittent abdominal cramping and vomiting for the past week. States he is only able to hold down food for 1 day. He was recently admitted to this hospital for pneumonia and was tested COVID negative multiple times. At that time he was also diagnosed with a likely metastatic neoplasm involving the chest and abdomen. He reports bilateral abdominal wall cramping. Denies diarrhea but states he is not able to hold any food down to have a bowel movement. Denies dysuria or hematuria. PMH: Alcohol abuse, neoplasm, schizophrenia, hypertension PSH: Reviewed in chart Allergies: None reported Social Hx: Former alcohol abuse Allergies: Coded Allergies: No Known Allergies (Unverified , 07/27/19) COVID-19 Screening Contact w/high risk pt: No Recent Travel to affected area: No Experienced COVID-19 symptoms?: No COVID-19 Testing performed DAMAGE ADJUSTER: No COVID-19 Screening: Negative COVID-19 Nursing Documentation-PMH Hx Hypertension: Yes Hx COPD: Yes Hx Diabetes: Yes Hx Gastrointestinal Problems: No Hx Neurological Problems: No Review of Systems All Other Systems: negative except mentioned in HPI Physical Exam Vital Signs Date Time Temp Pulse Resp B/P (MAP) Pulse Ox O2 Delivery O2 Flow Rate FiO2 08/16/19 15:03 78 16 112/72 (85) 96 Nasal Cannula 2.0 General: Awake and alert, no acute distress HEENT: NC/AT. EOMI. Cardiovascular: RRR. S1 and S2 normal. No murmur appreciated Resp: Normal work of breathing. No cough, wheezing or crackles appreciated Abdomen: Abdomen is soft, nondistended. Mild tenderness to palpation diffusely. No focal tenderness. No rebound or mass. Skin: Intact. No abrasions, laceration or rash over the exposed skin MSK: Normal tone and bulk. Moving all extremities. No obvious deformity. Neuro: Awake and alert. Mentating appropriately. Medical Decision Making Diagnostic Impression: Primary Impression: Intractable vomiting Additional Impression: Dehydration ER Course 54-year-old male presents for evaluation of persistent vomiting 1 week duration. Differential includes is not limited to dehydration, electrolyte abnormalities, gastritis, gastroenteritis, pancreatitis, cholecystitis, hepatitis, viral syndrome. Patient arrives with stable vital signs and no acute distress. Abdomen is not peritonitic. Broad labs were ordered showing elevated lactate signs of mild dehydration. Patient receiving IV fluids and antiemetics. He will be admitted for dehydration and failure to thrive. Admitted to his PMD, Dr. Lane. Laboratory Tests Test 08/16/19 15:40 08/16/19 16:00 White Blood Count 6.5 K/UL (4.8-10.8) Red Blood Count 4.01 M/UL (4.70-6.10) L Hemoglobin 12.0 G/DL (14.2-18.0) L Hematocrit 35.9 % (42.0-52.0) L Mean Corpuscular Volume 90 FL (80-99) Mean Corpuscular Hemoglobin 29.8 PG (27.0-31.0) Mean Corpuscular Hemoglobin Concent 33.3 G/DL (32.0-36.0) Red Cell Distribution Width 14.8 % (11.6-14.8) Platelet Count 351 K/UL (150-450) Mean Platelet Volume 7.3 FL (6.5-10.1) Neutrophils (%) (Auto) 68.0 % (45.0-75.0) Lymphocytes (%) (Auto) 23.1 % (20.0-45.0) Monocytes (%) (Auto) 6.1 % (1.0-10.0) Eosinophils (%) (Auto) 1.1 % (0.0-3.0) Basophils (%) (Auto) 1.7 % (0.0-2.0) Prothrombin Time 11.2 SEC (9.30-11.50) Prothrombin Time INR 1.0 (0.9-1.1) Activated Partial Thromboplast Time 30 SEC (23-33) Sodium Level 133 MMOL/L (136-145) L Potassium Level 4.2 MMOL/L (3.5-5.1) Chloride Level 94 MMOL/L (98-107) L Carbon Dioxide Level 27 MMOL/L (21-32) Anion Gap 12 mmol/L (5-15) Blood Urea Nitrogen 8 mg/dL (7-18) Creatinine 0.7 MG/DL (0.55-1.30) Estimated Glomerular Filtration Rate > 60 mL/min (>60) Glucose Level 87 MG/DL (74-106) Lactic Acid Level 3.60 mmol/L (0.4-2.0) H Uric Acid 4.6 MG/DL (2.6-7.2) Calcium Level 9.8 MG/DL (8.5-10.1) Phosphorus Level 4.7 MG/DL (2.5-4.9) Magnesium Level 1.9 MG/DL (1.8-2.4) Total Bilirubin 0.2 MG/DL (0.2-1.0) Aspartate Amino Transferase (AST) 25 U/L (15-37) Alanine Aminotransferase (ALT) 23 U/L (12-78) Alkaline Phosphatase 260 U/L (46-116) H Lactate Dehydrogenase 413 U/L (81-234) H Troponin I 0.000 ng/mL (0.000-0.056) Total Protein 7.6 G/DL (6.4-8.2) Albumin 2.7 G/DL (3.4-5.0) L Globulin 4.9 g/dL Albumin/Globulin Ratio 0.6 (1.0-2.7) L Lipase 145 U/L (73-393) Serum Alcohol < 3 mg/dL Urine Color Pending Urine Appearance Pending Urine pH Pending Urine Specific [place] Pending Urine Protein Pending Urine Glucose (UA) Pending Urine Ketones Pending Urine Blood Pending Urine Nitrite Pending Urine Bilirubin Pending Urine Urobilinogen Pending Urine Leukocyte Esterase Pending Urine Opiates Screen Negative (NEGATIVE) Urine Barbiturates Screen Negative (NEGATIVE) Phencyclidine (PCP) Screen Negative (NEGATIVE) Urine Amphetamines Screen Negative (NEGATIVE) Urine Benzodiazepines Screen Negative (NEGATIVE) Urine Cocaine Screen Negative (NEGATIVE) Urine Marijuana (THC) Screen Negative (NEGATIVE) Last Vital Signs Date Time Temp Pulse Resp B/P (MAP) Pulse Ox O2 Delivery O2 Flow Rate FiO2 08/16/19 15:03 78 16 112/72 (85) 96 Nasal Cannula 2.0 Disposition: ADMITTED INPATIENT Condition: Serious Doron Rosales MD August 16, 2019 15:17
[2019-08-16] MEDS ORDERED: Omnipaque-300 100ml vial INJ PRN (15:30)
[2019-08-16 16:11] VITALS: BP 128/88
[2019-08-16] MEDS ORDERED: NITRO0.4 SL (16:23)
[2019-08-16] MEDS ORDERED: ABILIFY20 MG ORAL (16:23)
[2019-08-16] MEDS ORDERED: OMEPRAZOLE20 M3 ORAL (16:23)
[2019-08-16] MEDS ORDERED: CATAPRES0.1 MG ORAL (16:23)
[2019-08-16 16:31] LABS: ANION GAP 12 mmol/L (5-15); BLOOD UREA NITROGEN 8 mg/dL (7-18); CALCIUM 9.8 MG/DL (8.5-10.1); CARBON DIOXIDE 27 MMOL/L (21-32); CHLORIDE 94 MMOL/L (98-107); CREATININE 0.7 MG/DL (0.55-1.30); POTASSIUM 4.2 MMOL/L (3.5-5.1); SODIUM 133 MMOL/L (136-145)
[2019-08-16 16:36] LABS: ALANINE AMINOTRANSFERASE 23 U/L (12-78); ALBUMIN 2.7 G/DL (3.4-5.0); ALBUMIN/GLOBULIN RATIO 0.6 (1.0-2.7); ALKALINE PHOSPHATASE 260 U/L (46-116); ASPARTATE AMINO TRANSFERASE 25 U/L (15-37); BILIRUBIN,TOTAL 0.2 MG/DL (0.2-1.0); PHOSPHORUS 4.7 MG/DL (2.5-4.9)
[2019-08-16 16:40] LABS: BASOPHILS % (AUTO) 1.7 % (0.0-2.0); EOSINOPHILS % (AUTO) 1.1 % (0.0-3.0); HEMATOCRIT 35.9 % (42.0-52.0); LYMPHOCYTES % (AUTO) 23.1 % (20.0-45.0); MEAN CORPUSCULAR VOLUME 90 FL (80-99); MONOCYTES % (AUTO) 6.1 % (1.0-10.0); PLATELET COUNT 351 K/UL (150-450); RED BLOOD COUNT 4.01 M/UL (4.70-6.10); RED CELL DISTRIBUTION WIDTH 14.8 % (11.6-14.8); WHITE BLOOD COUNT 6.5 K/UL (4.8-10.8)
--- NOTE | 2019-08-16 16:47 | Diagnostic Imaging Report ---
Procedure: XRAY Chest 1v Reason for study: Shortness of breath Comparison films: 07/31/2019. FINDINGS: A single one view chest is obtained. There is moderate vascular congestion. The lung sandoval are clear bilaterally. Hazy interstitial densities suggest early edema. CP angles are sharp. The bony thorax appear unremarkable. Metallic density right lower chest unchanged. IMPRESSION: Vascular congestion and possible early interstitial edema.
[2019-08-16 17:03] LABS: APPEARANCE,URINE CLEAR; BILIRUBIN, URINE 1+ (NEGATIVE); GLUCOSE, URINE (UA) NEGATIVE (NEGATIVE); KETONES,URINE 2+ (NEGATIVE); LEUKOCYTE ESTERASE ,URINE 1+ (NEGATIVE); NITRITE,URINE NEGATIVE (NEGATIVE); PH,URINE 6 (4.5-8.0); PROTEIN,URINE 2+ (NEGATIVE); UROBILINOGEN,URINE 8 MG/DL (0.0-1.0)
[2019-08-16 17:39] VITALS: BP 144/70
[2019-08-16 17:43] LABS: COLOR,URINE YELLOW
[2019-08-16] MEDS ORDERED: Lidocaine 1% Plain 30 ml INJ PRN (18:00)
[2019-08-16 18:30] VITALS: BP 144/78
[2019-08-16] MEDS: Enoxaparin 40mg Inj SUBQ SCH (18:30)
[2019-08-16 20:00] VITALS: BP 145/78
[2019-08-16] MEDS: Depakote ER 250mg tab ORAL SCH (20:36)
[2019-08-16] MEDS: DULoxetine 30mg cap ORAL SCH (20:36)
[2019-08-16] MEDS: ARIPiprazole 10mg tab ORAL SCH (20:37)
[2019-08-16] MEDS: NovoLOG Insulin Flexpen SUBQ SCH (20:46)
[2019-08-16] MEDS: HydrALAZINE 25mg tab ORAL SCH (22:16)
[2019-08-17] VITALS (8 sets, daily range): BP systolic 133–147; BP diastolic 74–79
[2019-08-17] MEDS: HydrALAZINE 25mg tab ORAL SCH ×3 (06:04→22:15)
[2019-08-17] MEDS: NovoLOG Insulin Flexpen SUBQ SCH ×4 (06:07→21:00)
[2019-08-17] MEDS: ARIPiprazole 10mg tab ORAL SCH ×2 (08:51→22:13)
[2019-08-17] MEDS: DULoxetine 30mg cap ORAL SCH ×2 (08:51→22:15)
[2019-08-17] MEDS: Depakote ER 250mg tab ORAL SCH ×2 (08:52→22:15)
[2019-08-17] MEDS: Docusate 100mg cap ORAL PRN (08:53)
[2019-08-17] MEDS: Enoxaparin 40mg Inj SUBQ SCH (09:00)
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
--- NOTE | 2019-08-17 12:14 | Consultation ---
History of Present Illness General Chief Complaint: General Complaint Present Illness Allergies: Coded Allergies: No Known Allergies (Unverified , 07/27/19) Medication History Scheduled Amlodipine Besylate* (Amlodipine Besylate*), 10 MG ORAL DAILY, (Reported) Aripiprazole* (Abilify*), 20 MG ORAL DAILY, (Reported) Aripiprazole* (Abilify*), 30 MG ORAL DAILY, (Reported) Azithromycin (Azithromycin), 500 MG ORAL DAILY Ceftriaxone Na/Dextrose,Iso (Ceftriaxone 1 Gm Piggyback), 1 GM IV DAILY Clonidine Hcl* (Catapres*), 0.1 MG ORAL EVERY 12 HOURS, (Reported) Divalproex Sodium* (Depakote Er*), 250 MG ORAL EVERY 12 HOURS, (Reported) Docusate Sodium* (Docusate Sodium*), 100 MG ORAL TWICE A DAY, (Reported) Duloxetine Hcl* (Cymbalta*), 30 MG ORAL DAILY, (Reported) Hydralazine Hcl* (Hydralazine Hcl*), 25 MG ORAL EVERY 8 HOURS, (Reported) Ibuprofen* (Motrin*), 800 MG ORAL FOUR TIMES A DAY, (Reported) Insulin Glargine (Lantus), 0 SUBQ BEDTIME, (Reported) Metformin Hcl* (Metformin Hcl*), 850 MG ORAL DAILY, (Reported) Metoprolol Tartrate* (Metoprolol Tartrate*), 25 MG ORAL EVERY 12 HOURS, ( Reported) Na Phos,M-B/Na Phos,Di-Ba* (Fleet Enema*), 133 ML RECTAL DAILY, (Reported) Omeprazole (Omeprazole), 20 MG ORAL DAILY, (Reported) Scheduled PRN Nitroglycerin 0.4MG table* (Nitroglycerin*), 0.4 MG SL .Q5MIN X 3 DOSES PRN for CHEST PAIN, (Reported) Miscellaneous Medications Cranberry Fruit (Cranberry), 450 MG PO, (Reported) Dextrose (Glucose Gel), 38 GM PO, (Reported) Glucagon,Human Recombinant (Glucagon Emergency Kit), 1 MG IJ, (Reported) Patient History Healthcare decision maker N Resuscitation status Advanced Directive on File Physical Exam Last 24 Hour Vital Signs Date Time Temp Pulse Resp B/P (MAP) Pulse Ox O2 Delivery O2 Flow Rate FiO2 08/17/19 08:52 73 147/75 08/17/19 08:51 73 147/75 08/17/19 08:00 98.3 78 18 147/75 (99) 94 08/17/19 06:04 141/75 08/17/19 04:00 97.8 73 18 141/74 (96) 93 08/17/19 00:00 97.5 74 18 142/79 (100) 93 08/16/19 22:16 141/77 08/16/19 21:00 Room Air 08/16/19 20:43 73 141/77 08/16/19 20:42 73 141/77 08/16/19 20:00 97.9 78 18 145/78 (100) 93 08/16/19 18:46 Room Air 08/16/19 18:30 98.5 75 20 144/78 (100) 96 08/16/19 18:30 98.0 75 16 144/70 96 Room Air 2.0 08/16/19 17:39 98.0 75 16 144/70 96 Room Air 08/16/19 16:11 74 16 128/88 96 Nasal Cannula 2.0 08/16/19 16:11 74 16 Nasal Cannula 2.0 08/16/19 15:03 78 16 112/72 (85) 96 Nasal Cannula 2.0 Intake and Output 08/16/19 08/17/19 19:00 07:00 Output Total 950 ml Balance -950 ml Output Urine Total 950 ml # Voids 1 4 Laboratory Tests Test 08/16/19 15:40 08/16/19 16:00 08/16/19 17:30 08/16/19 20:50 White Blood Count 6.5 K/UL (4.8-10.8) Red Blood Count 4.01 M/UL (4.70-6.10) L Hemoglobin 12.0 G/DL (14.2-18.0) L Hematocrit 35.9 % (42.0-52.0) L Mean Corpuscular Volume 90 FL (80-99) Mean Corpuscular Hemoglobin 29.8 PG (27.0-31.0) Mean Corpuscular Hemoglobin Concent 33.3 G/DL (32.0-36.0) Red Cell Distribution Width 14.8 % (11.6-14.8) Platelet Count 351 K/UL (150-450) Mean Platelet Volume 7.3 FL (6.5-10.1) Neutrophils (%) (Auto) 68.0 % (45.0-75.0) Lymphocytes (%) (Auto) 23.1 % (20.0-45.0) Monocytes (%) (Auto) 6.1 % (1.0-10.0) Eosinophils (%) (Auto) 1.1 % (0.0-3.0) Basophils (%) (Auto) 1.7 % (0.0-2.0) Prothrombin Time 11.2 SEC (9.30-11.50) Prothromb Time International Ratio 1.0 (0.9-1.1) Activated Partial Thromboplast Time 30 SEC (23-33) Sodium Level 133 MMOL/L (136-145) L Potassium Level 4.2 MMOL/L (3.5-5.1) Chloride Level 94 MMOL/L (98-107) L Carbon Dioxide Level 27 MMOL/L (21-32) Anion Gap 12 mmol/L (5-15) Blood Urea Nitrogen 8 mg/dL (7-18) Creatinine 0.7 MG/DL (0.55-1.30) Estimat Glomerular Filtration Rate > 60 mL/min (>60) Glucose Level 87 MG/DL (74-106) Hemoglobin A1c 6.6 % (4.3-6.0) H Lactic Acid Level 3.60 mmol/L (0.4-2.0) H 2.20 mmol/L (0.66-2.22) 1.30 mmol/L (0.4-2.0) Uric Acid 4.6 MG/DL (2.6-7.2) Calcium Level 9.8 MG/DL (8.5-10.1) Phosphorus Level 4.7 MG/DL (2.5-4.9) Magnesium Level 1.9 MG/DL (1.8-2.4) Total Bilirubin 0.2 MG/DL (0.2-1.0) Aspartate Amino Transf (AST/SGOT) 25 U/L (15-37) Alanine Aminotransferase (ALT/SGPT) 23 U/L (12-78) Alkaline Phosphatase 260 U/L (46-116) H Lactate Dehydrogenase 413 U/L (81-234) H Troponin I 0.000 ng/mL (0.000-0.056) Total Protein 7.6 G/DL (6.4-8.2) Albumin 2.7 G/DL (3.4-5.0) L Globulin 4.9 g/dL Albumin/Globulin Ratio 0.6 (1.0-2.7) L Lipase 145 U/L (73-393) Serum Alcohol < 3 mg/dL Urine Color Yellow Urine Appearance Clear Urine pH 6 (4.5-8.0) Urine Specific [place] 1.015 (1.005-1.035) Urine Protein 2+ (NEGATIVE) H Urine Glucose (UA) Negative (NEGATIVE) Urine Ketones 2+ (NEGATIVE) H Urine Blood Negative (NEGATIVE) Urine Nitrite Negative (NEGATIVE) Urine Bilirubin 1+ (NEGATIVE) H Urine Ictotest Negative (NEGATIVE) Urine Urobilinogen 8 MG/DL (0.0-1.0) H Urine Leukocyte Esterase 1+ (NEGATIVE) H Urine RBC 0-2 /HPF (0 - 0) H Urine WBC 2-4 /HPF (0 - 0) Urine Squamous Epithelial Cells None /LPF (NONE/OCC) Urine Bacteria Few /HPF (NONE) Urine Opiates Screen Negative (NEGATIVE) Urine Barbiturates Screen Negative (NEGATIVE) Phencyclidine (PCP) Screen Negative (NEGATIVE) Urine Amphetamines Screen Negative (NEGATIVE) Urine Benzodiazepines Screen Negative (NEGATIVE) Urine Cocaine Screen Negative (NEGATIVE) Urine Marijuana (THC) Screen Negative (NEGATIVE) Microbiology Date/Time Source Procedure Growth Status 08/16/19 17:30 Rectum Received Height (Feet): 6 Height (Inches): 1.00 Weight (Pounds): 180 Medications Current Medications Medications (Trade) Dose Ordered Sig/Amita Route PRN Reason Start Time Stop Time Status Last Admin Dose Admin Acetaminophen (Tylenol) 650 mg Q6H PRN ORAL For Headache 08/16/19 17:45 09/15/19 17:44 Acetaminophen/ Hydrocodone Bitart ([place] 10/325) 1 tab Q4H PRN ORAL For Pain 08/16/19 17:45 08/23/19 17:44 Amlodipine Besylate (Norvasc) 10 mg DAILY ORAL 08/16/19 20:00 09/15/19 19:59 08/17/19 08:52 Aripiprazole (Abilify) 20 mg DAILY ORAL 08/16/19 20:00 09/30/19 19:59 08/17/19 08:51 Clonidine HCl (Catapres Tab) 0.1 mg Q4H PRN ORAL SBP > 160 08/16/19 17:45 11/14/19 17:44 Dextrose (Dextrose 50%) 25 ml Q30M PRN IV Hypoglycemia 08/16/19 18:00 11/14/19 17:59 Dextrose (Dextrose 50%) 50 ml Q30M PRN IV Hypoglycemia 08/16/19 18:00 11/14/19 17:59 Divalproex Sodium (Depakote ER) 250 mg EVERY 12 HOURS ORAL 08/16/19 21:00 09/15/19 20:59 08/17/19 08:52 Docusate Sodium (Colace) 100 mg TID PRN ORAL Constipation 08/16/19 17:45 09/15/19 17:44 08/17/19 08:53 Duloxetine HCl (Cymbalta) 30 mg DAILY ORAL 08/16/19 20:00 11/14/19 19:59 08/17/19 08:51 Enoxaparin Sodium (Lovenox) 40 mg DAILY SUBQ 08/16/19 18:30 11/14/19 18:29 Famotidine (Pepcid I.v.) 20 mg Q12HR IVP 08/16/19 21:00 09/15/19 20:59 08/17/19 08:52 Hydralazine HCl (Apresoline) 25 mg EVERY 8 HOURS ORAL 08/16/19 22:00 11/14/19 21:59 08/17/19 06:04 Insulin Aspart (NovoLOG) BEFORE MEALS AND HS SUBQ 08/16/19 21:00 11/14/19 20:59 Lidocaine HCl (Xylocaine 1% 30ml) 30 ml NOW PRN INJ Radiology Procedure 08/16/19 18:00 08/18/19 17:51 Metoprolol Tartrate (Lopressor) 25 mg EVERY 12 HOURS ORAL 08/16/19 21:00 11/14/19 20:59 08/17/19 08:51 Morphine Sulfate (Morphine Sulfate) 2 mg Q4H PRN IVP FOR SEVERE PAIN 08/16/19 17:45 08/23/19 17:44 Sodium Chloride 1,000 ml @ 100 mls/hr Q10H IV 08/16/19 17:45 09/15/19 17:44 08/17/19 04:09 Assessment/Plan Assessment/Plan: Hematology Consultation REParvin SILVA: Veronika Rubio [facility]: Metastatic workup DOS 08/17/19 HPI: 54-year-old male with a history of alcohol abuse, schizophrenia, recently diagnosed neoplasm, hypertension presents for evaluation of weakness and vomiting. Patient arrives from nursing facility reporting intermittent abdominal cramping and vomiting for the past week. States he is only able to hold down food for 1 day. He was recently admitted to this hospital for pneumonia and was tested COVID negative multiple times. At that time he was also diagnosed with a likely metastatic neoplasm involving the chest and abdomen. He reports bilateral abdominal wall cramping. Denies diarrhea but states he is not able to hold any food down to have a bowel movement. Denies dysuria or hematuria. Is here for a ct guided biopsy which has been ordered. PMH: Alcohol abuse, neoplasm, schizophrenia, hypertension PSH: Reviewed in chart Allergies: None reported Social Hx: Former alcohol abuse Allergies: Coded Allergies: No Known Allergies (Unverified , 07/27/19) COVID-19 Screening Contact w/high risk pt: No Recent Travel to affected area: No Experienced COVID-19 symptoms?: No COVID-19 Testing performed FORECLOSURE [place]: No COVID-19 Screening: Negative COVID-19 Nursing Documentation-PMH Hx Hypertension: Yes Hx COPD: Yes Hx Diabetes: Yes Hx Gastrointestinal Problems: No Hx Neurological Problems: No ROS (review of systems): Constitutional: No fever, no chills, no night sweats, no fatigue Skin: No rashes, lumps, itchiness, dryness HEENT: No HUSSEIN, ear ache, visual changes, double vision, nosebleeds Breasts: No lumps, pain, discharge Pulmonary: No cough, sputum, shortness of breath, coughing up blood Cardiovascular: No chest pain, tightness, palpitations, syncope, PND GI: No nausea, vomiting, diarrhea, melena, hematochezia, change in appetite, : No dysuria, frequency, urgency, urinary incontinence, foamy urine Musculoskeletal: No joint swelling or muscle pain, trauma, back pain Neurologic: No dizziness, fainting, seizures, changes in smell or taste Psychiatric: No nervousness, stress, or depression, anxiety, hallucinations Endocrine: No weight change, heat or cold intolerance, tremor, insomnia Physical Exam: Vitals: reviewed General: NAD HEENT: nc, at Neck: supple Chest: clear breath sounds bilaterally Cardiovascular: RRR, no s3, s4 Abdomen: soft, nontender, nd Extremities: no cce, normal range of motion Neuro: alert and oriented Labs reviewed Imaging reviewed Assessment and Recs # Metastatic disease including multiple pulmonary lesions, mediastinal and hilar adenopathy, multiple osteolytic rib lesions and subtle low-density areas in the liver suspicious for underlying metastasis. --> tumor markers have been ordered --> ct guided biopsy ordered with Dr. Rubio --> await completion of biopsy --> outpatient care # Anemia of chronic disease --> ivfs as needed # Intractable vomiting --> zofran prn # Dehydration --> renal eval as needed # Dvt ppx scds for now pre=proceudre The timing of this note does not necessarily reflect the time of the patient was seen. Greatly appreciate consultation. Sam Burch MD August 17, 2019 12:14
--- NOTE | 2019-08-17 13:15 | Pre-Procedure Note/Attestation ---
Pre-Procedure Note/Attestation Complete Prior to Procedure Planned Procedure: right Procedure Narrative: CT guided rib mass biopsy Indications for Procedure Pre-Operative Diagnosis: metastatic disease Attestation I attest that I discussed the nature of the procedure; its benefits; risks and complications; and alternatives (and the risks and benefits of such alternatives ), prior to the procedure, with the patient (or the patient's legal personal banking representative). I attest that, if there was a reasonable possibility of needing a blood transfusion, the patient (or the patient's legal personal banking representative) was given the [facility] standardized written summary, pursuant to the [place] Blood Safety Act ([place] Health and Safety Code # 1645, as amended). I attest that I re-evaluated the patient just prior to the surgery and that there has been no change in the patient's H&P, except as documented below: Ap Culp MD August 17, 2019 13:15
--- NOTE | 2019-08-17 13:49 | Brief Operative Note ---
Immediate Post Operative Note Operative Note Pre-op Diagnosis: metastatic disease Procedure: R 5th rib bx Post-op Diagnosis: same as pre-op Surgeon: Deirdre Adame Anesthesia: local Specimen: yes - 3 18G cores Complications: none Condition: stable Fluids: none Implant(s) used?: No Ap Adame MD August 17, 2019 13:48
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
--- NOTE | 2019-08-17 18:47 | Diagnostic Imaging Report ---
Indication: Evidence of disseminated metastatic neoplasm, request for issue sampling from referring oncologist Technique: Technique discussed with oncologist, Dr. Burch. It was elected to sample a rib lesion as this was thought to be the most safely accessible lesion. Prior imaging studies reviewed. A right fourth rib lesion was selected as the target. Informed consent obtained prior to commencement of the procedure. She'll timeout was performed. The skin was sterilely prepped and draped. Local anesthesia with 1% lidocaine. Under CT guidance, an 18-gauge Corvocet needle was directed into the periphery of the lesion. Total of 4 core specimens were obtained and placed in formalin. Follow-up imaging performed, demonstrating no evidence of complication. The patient tolerated the procedure well, without immediate complication. Total dose length product 286 mGycm. CTDIvol(s) 8 x 4 mGy Comparison: Reference made to prior CT scan 07/31/2019 Findings: Intraprocedural images document successful access of the target osteolytic right fourth rib lesion Impression: Apparently successful biopsy of right fourth rib lesion, as described Final pathology pending
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
[2019-08-17] MEDS: HYDROcodone/Acetamin 10/325 tab ORAL PRN (22:17)
[2019-08-18] VITALS: BP 143/76
[2019-08-18 04:00] VITALS: BP 140/79
[2019-08-18] MEDS: HydrALAZINE 25mg tab ORAL SCH ×3 (05:21→21:21)
[2019-08-18] MEDS: HYDROcodone/Acetamin 10/325 tab ORAL PRN ×2 (05:23→16:42)
[2019-08-18 05:45] LABS: BASOPHILS % (AUTO) 1.9 % (0.0-2.0); EOSINOPHILS % (AUTO) 0.8 % (0.0-3.0); HEMATOCRIT 36.8 % (42.0-52.0); HEMOGLOBIN 12.8 G/DL (14.2-18.0); LYMPHOCYTES % (AUTO) 23.6 % (20.0-45.0); MEAN CORPUSCULAR VOLUME 84 FL (80-99); MONOCYTES % (AUTO) 10.5 % (1.0-10.0); NEUTROPHILS % (AUTO) 63.3 % (45.0-75.0); PLATELET COUNT 384 K/UL (150-450); RED BLOOD COUNT 4.38 M/UL (4.70-6.10); RED CELL DISTRIBUTION WIDTH 12.7 % (11.6-14.8); WHITE BLOOD COUNT 5.1 K/UL (4.8-10.8)
[2019-08-18 06:08] LABS: ALANINE AMINOTRANSFERASE 22 U/L (12-78); ALBUMIN 2.8 G/DL (3.4-5.0); ALBUMIN/GLOBULIN RATIO 0.6 (1.0-2.7); ALKALINE PHOSPHATASE 274 U/L (46-116); ANION GAP 9 mmol/L (5-15); ASPARTATE AMINO TRANSFERASE 28 U/L (15-37); BILIRUBIN,TOTAL 0.3 MG/DL (0.2-1.0); BLOOD UREA NITROGEN 10 mg/dL (7-18); CALCIUM 10.3 MG/DL (8.5-10.1); CARBON DIOXIDE 30 MMOL/L (21-32); CHLORIDE 97 MMOL/L (98-107); CREATININE 0.7 MG/DL (0.55-1.30); POTASSIUM 4.1 MMOL/L (3.5-5.1); SODIUM 136 MMOL/L (136-145)
[2019-08-18] MEDS: NovoLOG Insulin Flexpen SUBQ SCH ×4 (06:16→21:00)
--- NOTE | 2019-08-18 07:46 | Hematology/Onc Progress Note ---
Assessment/Plan Assessment/Plan Assessment and Recs # Metastatic disease including multiple pulmonary lesions, mediastinal and hilar adenopathy, multiple osteolytic rib lesions and subtle low-density areas in the liver suspicious for underlying metastasis. --> tumor markers have been ordered --> ct guided biopsy ordered with Dr. Rubio, --> 08/16 ct guided biop of rib lesion performed, waiting path report --> outpatient care # Anemia of chronic disease --> hgb currently stable # Intractable vomiting --> zofran prn # Dehydration --> renal eval as needed # Dvt ppx scds for now pre-proceudre The timing of this note does not necessarily reflect the time of the patient was seen. Greatly appreciate consultation. Subjective Allergies: Coded Allergies: No Known Allergies (Unverified , 07/27/19) Subjective 08/17 s/p successful ct guided biop of rib lesion, awaiting path report, no distress Objective Objective Current Medications Medications (Trade) Dose Ordered Sig/Amita Route PRN Reason Start Time Stop Time Status Last Admin Dose Admin Acetaminophen (Tylenol) 650 mg Q6H PRN ORAL For Headache 08/16/19 17:45 09/15/19 17:44 Acetaminophen/ Hydrocodone Bitart ([place] 10/325) 1 tab Q4H PRN ORAL For Pain 08/16/19 17:45 08/23/19 17:44 08/18/19 05:23 Amlodipine Besylate (Norvasc) 10 mg DAILY ORAL 08/16/19 20:00 09/15/19 19:59 08/17/19 08:52 Aripiprazole (Abilify) 20 mg DAILY ORAL 08/16/19 20:00 09/30/19 19:59 08/17/19 08:51 Clonidine HCl (Catapres Tab) 0.1 mg Q4H PRN ORAL SBP > 160 08/16/19 17:45 11/14/19 17:44 Dextrose (Dextrose 50%) 25 ml Q30M PRN IV Hypoglycemia 08/16/19 18:00 11/14/19 17:59 Dextrose (Dextrose 50%) 50 ml Q30M PRN IV Hypoglycemia 08/16/19 18:00 11/14/19 17:59 Divalproex Sodium (Depakote ER) 250 mg EVERY 12 HOURS ORAL 08/16/19 21:00 09/15/19 20:59 08/17/19 22:15 Docusate Sodium (Colace) 100 mg TID PRN ORAL Constipation 08/16/19 17:45 09/15/19 17:44 08/17/19 08:53 Duloxetine HCl (Cymbalta) 30 mg DAILY ORAL 08/16/19 20:00 11/14/19 19:59 08/17/19 08:51 Enoxaparin Sodium (Lovenox) 40 mg DAILY SUBQ 08/16/19 18:30 11/14/19 18:29 Famotidine (Pepcid I.v.) 20 mg Q12HR IVP 08/16/19 21:00 09/15/19 20:59 08/17/19 22:13 Hydralazine HCl (Apresoline) 25 mg EVERY 8 HOURS ORAL 08/16/19 22:00 11/14/19 21:59 08/18/19 05:21 Insulin Aspart (NovoLOG) BEFORE MEALS AND HS SUBQ 08/16/19 21:00 11/14/19 20:59 Lidocaine HCl (Xylocaine 1% 30ml) 30 ml NOW PRN INJ Radiology Procedure 08/16/19 18:00 08/18/19 17:51 Metoprolol Tartrate (Lopressor) 25 mg EVERY 12 HOURS ORAL 08/16/19 21:00 11/14/19 20:59 08/17/19 22:17 Morphine Sulfate (Morphine Sulfate) 2 mg Q4H PRN IVP FOR SEVERE PAIN 08/16/19 17:45 08/23/19 17:44 Last 24 Hour Vital Signs Date Time Temp Pulse Resp B/P (MAP) Pulse Ox O2 Delivery O2 Flow Rate FiO2 08/18/19 05:21 156/80 08/18/19 04:00 97.9 60 18 140/79 (99) 91 08/18/19 00:00 97.9 63 20 143/76 (98) 91 08/17/19 22:17 77 139/78 08/17/19 22:15 139/78 08/17/19 21:00 Room Air 08/17/19 20:00 98.1 77 18 139/78 (98) 90 08/17/19 16:04 142/79 08/17/19 16:00 98.1 72 20 146/79 (101) 95 08/17/19 13:55 98.0 81 25 133/78 (96) 97 08/17/19 13:48 81 25 08/17/19 12:00 98.5 74 20 142/79 (100) 95 08/17/19 09:00 Room Air 08/17/19 08:52 73 147/75 08/17/19 08:51 73 147/75 08/17/19 08:00 98.3 78 18 147/75 (99) 94 08/17/19 06:04 141/75 08/17/19 04:00 97.8 73 18 141/74 (96) 93 08/17/19 00:00 97.5 74 18 142/79 (100) 93 08/16/19 22:16 141/77 08/16/19 21:00 Room Air 08/16/19 20:43 73 141/77 08/16/19 20:42 73 141/77 08/16/19 20:00 97.9 78 18 145/78 (100) 93 08/16/19 18:46 Room Air 08/16/19 18:30 98.5 75 20 144/78 (100) 96 08/16/19 18:30 98.0 75 16 144/70 96 Room Air 2.0 08/16/19 17:39 98.0 75 16 144/70 96 Room Air 08/16/19 16:11 74 16 128/88 96 Nasal Cannula 2.0 08/16/19 16:11 74 16 Nasal Cannula 2.0 08/16/19 15:03 78 16 112/72 (85) 96 Nasal Cannula 2.0 Intake and Output 08/17/19 08/18/19 19:00 07:00 Intake Total 400 ml Output Total 1000 ml 900 ml Balance -1000 ml -500 ml Intake Oral 400 ml Output Urine Total 1000 ml 900 ml # Voids 5 Labs Test 08/16/19 15:40 08/16/19 16:00 08/16/19 17:30 08/16/19 20:50 White Blood Count 6.5 K/UL (4.8-10.8) Red Blood Count 4.01 M/UL (4.70-6.10) Hemoglobin 12.0 G/DL (14.2-18.0) Hematocrit 35.9 % (42.0-52.0) Mean Corpuscular Volume 90 FL (80-99) Mean Corpuscular Hemoglobin 29.8 PG (27.0-31.0) Mean Corpuscular Hemoglobin Concent 33.3 G/DL (32.0-36.0) Red Cell Distribution Width 14.8 % (11.6-14.8) Platelet Count 351 K/UL (150-450) Mean Platelet Volume 7.3 FL (6.5-10.1) Neutrophils (%) (Auto) 68.0 % (45.0-75.0) Lymphocytes (%) (Auto) 23.1 % (20.0-45.0) Monocytes (%) (Auto) 6.1 % (1.0-10.0) Eosinophils (%) (Auto) 1.1 % (0.0-3.0) Basophils (%) (Auto) 1.7 % (0.0-2.0) Prothrombin Time 11.2 SEC (9.30-11.50) Prothromb Time International Ratio 1.0 (0.9-1.1) Activated Partial Thromboplast Time 30 SEC (23-33) Sodium Level 133 MMOL/L (136-145) Potassium Level 4.2 MMOL/L (3.5-5.1) Chloride Level 94 MMOL/L (98-107) Carbon Dioxide Level 27 MMOL/L (21-32) Anion Gap 12 mmol/L (5-15) Blood Urea Nitrogen 8 mg/dL (7-18) Creatinine 0.7 MG/DL (0.55-1.30) Estimat Glomerular Filtration Rate > 60 mL/min (>60) Glucose Level 87 MG/DL (74-106) Hemoglobin A1c 6.6 % (4.3-6.0) Lactic Acid Level 3.60 mmol/L (0.4-2.0) 2.20 mmol/L (0.66-2.22) 1.30 mmol/L (0.4-2.0) Uric Acid 4.6 MG/DL (2.6-7.2) Calcium Level 9.8 MG/DL (8.5-10.1) Phosphorus Level 4.7 MG/DL (2.5-4.9) Magnesium Level 1.9 MG/DL (1.8-2.4) Total Bilirubin 0.2 MG/DL (0.2-1.0) Aspartate Amino Transf (AST/SGOT) 25 U/L (15-37) Alanine Aminotransferase (ALT/SGPT) 23 U/L (12-78) Alkaline Phosphatase 260 U/L (46-116) Lactate Dehydrogenase 413 U/L (81-234) Troponin I 0.000 ng/mL (0.000-0.056) Total Protein 7.6 G/DL (6.4-8.2) Albumin 2.7 G/DL (3.4-5.0) Globulin 4.9 g/dL Albumin/Globulin Ratio 0.6 (1.0-2.7) Lipase 145 U/L (73-393) Serum Alcohol < 3 mg/dL Urine Color Yellow Urine Appearance Clear Urine pH 6 (4.5-8.0) Urine Specific [place] 1.015 (1.005-1.035) Urine Protein 2+ (NEGATIVE) Urine Glucose (UA) Negative (NEGATIVE) Urine Ketones 2+ (NEGATIVE) Urine Blood Negative (NEGATIVE) Urine Nitrite Negative (NEGATIVE) Urine Bilirubin 1+ (NEGATIVE) Urine Ictotest Negative (NEGATIVE) Urine Urobilinogen 8 MG/DL (0.0-1.0) Urine Leukocyte Esterase 1+ (NEGATIVE) Urine RBC 0-2 /HPF (0 - 0) Urine WBC 2-4 /HPF (0 - 0) Urine Squamous Epithelial Cells None /LPF (NONE/OCC) Urine Bacteria Few /HPF (NONE) Urine Opiates Screen Negative (NEGATIVE) Urine Barbiturates Screen Negative (NEGATIVE) Phencyclidine (PCP) Screen Negative (NEGATIVE) Urine Amphetamines Screen Negative (NEGATIVE) Urine Benzodiazepines Screen Negative (NEGATIVE) Urine Cocaine Screen Negative (NEGATIVE) Urine Marijuana (THC) Screen Negative (NEGATIVE) Test 08/17/19 15:45 08/18/19 04:45 Carcinoembryonic Antigen 1.8 ng/mL (0.0-4.7) CA 15-3 Antigen 16.3 U/mL (0.0-25.0) CA 125 Antigen 30.8 U/mL (Not Estab.) White Blood Count 5.1 K/UL (4.8-10.8) Red Blood Count 4.38 M/UL (4.70-6.10) Hemoglobin 12.8 G/DL (14.2-18.0) Hematocrit 36.8 % (42.0-52.0) Mean Corpuscular Volume 84 FL (80-99) Mean Corpuscular Hemoglobin 29.3 PG (27.0-31.0) Mean Corpuscular Hemoglobin Concent 34.8 G/DL (32.0-36.0) Red Cell Distribution Width 12.7 % (11.6-14.8) Platelet Count 384 K/UL (150-450) Mean Platelet Volume 5.6 FL (6.5-10.1) Neutrophils (%) (Auto) 63.3 % (45.0-75.0) Lymphocytes (%) (Auto) 23.6 % (20.0-45.0) Monocytes (%) (Auto) 10.5 % (1.0-10.0) Eosinophils (%) (Auto) 0.8 % (0.0-3.0) Basophils (%) (Auto) 1.9 % (0.0-2.0) Sodium Level 136 MMOL/L (136-145) Potassium Level 4.1 MMOL/L (3.5-5.1) Chloride Level 97 MMOL/L (98-107) Carbon Dioxide Level 30 MMOL/L (21-32) Anion Gap 9 mmol/L (5-15) Blood Urea Nitrogen 10 mg/dL (7-18) Creatinine 0.7 MG/DL (0.55-1.30) Estimat Glomerular Filtration Rate > 60 mL/min (>60) Glucose Level 95 MG/DL (74-106) Calcium Level 10.3 MG/DL (8.5-10.1) Phosphorus Level 5.0 MG/DL (2.5-4.9) Magnesium Level 2.0 MG/DL (1.8-2.4) Total Bilirubin 0.3 MG/DL (0.2-1.0) Aspartate Amino Transf (AST/SGOT) 28 U/L (15-37) Alanine Aminotransferase (ALT/SGPT) 22 U/L (12-78) Alkaline Phosphatase 274 U/L (46-116) Total Protein 7.8 G/DL (6.4-8.2) Albumin 2.8 G/DL (3.4-5.0) Globulin 5.0 g/dL Albumin/Globulin Ratio 0.6 (1.0-2.7) Height (Feet): 6 Height (Inches): 1.00 Weight (Pounds): 180 Objective Physical Exam: Vitals: reviewed General: NAD HEENT: nc, at Neck: supple Chest: clear breath sounds bilaterally Cardiovascular: RRR, no s3, s4 Abdomen: soft, nontender, nd Extremities: no cce, normal range of motion Neuro: alert and oriented Sam Burch MD August 18, 2019 07:46
[2019-08-18 08:00] VITALS: BP 150/96
[2019-08-18] MEDS: DULoxetine 30mg cap ORAL SCH (08:18)
[2019-08-18] MEDS: Depakote ER 250mg tab ORAL SCH ×2 (08:18→21:20)
[2019-08-18] MEDS: ARIPiprazole 10mg tab ORAL SCH (08:19)
[2019-08-18] MEDS: Enoxaparin 40mg Inj SUBQ SCH (08:20)
--- NOTE | 2019-08-18 09:15 | Pulmonology Progress Note ---
Subjective Interval Events: None new' s/p lung biopsy HEENT: Repors: no symptoms Respiratory: Reports: no symptoms Gastrointestinal/Abdominal: Reports: no symptoms Allergies: Coded Allergies: No Known Allergies (Unverified , 07/27/19) Objective Last 24 Hour Vital Signs Date Time Temp Pulse Resp B/P (MAP) Pulse Ox O2 Delivery O2 Flow Rate FiO2 08/18/19 08:18 60 150/80 08/18/19 08:18 60 156/80 08/18/19 05:21 156/80 08/18/19 04:00 97.9 60 18 140/79 (99) 91 08/18/19 00:00 97.9 63 20 143/76 (98) 91 08/17/19 22:17 77 139/78 08/17/19 22:15 139/78 08/17/19 21:00 Room Air 08/17/19 20:00 98.1 77 18 139/78 (98) 90 08/17/19 16:04 142/79 08/17/19 16:00 98.1 72 20 146/79 (101) 95 08/17/19 13:55 98.0 81 25 133/78 (96) 97 08/17/19 13:48 81 25 08/17/19 12:00 98.5 74 20 142/79 (100) 95 Intake and Output 08/17/19 08/18/19 19:00 07:00 Intake Total 400 ml Output Total 1000 ml 900 ml Balance -1000 ml -500 ml Intake Oral 400 ml Output Urine Total 1000 ml 900 ml # Voids 5 General Appearance: no acute distress Respiratory: chest wall non-tender Cardiovascular: normal peripheral pulses Microbiology Date/Time Source Procedure Growth Status 08/16/19 17:30 Nasal Nares MRSA Culture - Final NO METHICILLIN RESISTANT STAPH AUREUS... Complete 08/16/19 17:30 Rectum - Final NO CARBAPENEM-RESISTANT ENTEROBACTERI... Complete 08/16/19 17:30 Rectum VRE Culture - Final NO VANCOMYCIN RESISTANT ENTEROCOCCUS ... Complete Laboratory Tests 08/17/19 15:45: Carcinoembryonic Antigen 1.8, CA 15-3 Antigen 16.3, CA 19-9 Antigen [Pending], CA 125 Antigen 30.8 08/18/19 04:45: White Blood Count 5.1, Red Blood Count 4.38L, Hemoglobin 12.8L, Hematocrit 36.8L , Mean Corpuscular Volume 84, Mean Corpuscular Hemoglobin 29.3, Mean Corpuscular Hemoglobin Concent 34.8, Red Cell Distribution Width 12.7, Platelet Count 384, Mean Platelet Volume 5.6L, Neutrophils (%) (Auto) 63.3, Lymphocytes ( %) (Auto) 23.6, Monocytes (%) (Auto) 10.5H, Eosinophils (%) (Auto) 0.8, Basophils (%) (Auto) 1.9, Sodium Level 136, Potassium Level 4.1, Chloride Level 97L, Carbon Dioxide Level 30, Anion Gap 9, Blood Urea Nitrogen 10, Creatinine 0.7, Estimat Glomerular Filtration Rate > 60, Glucose Level 95, Calcium Level 10.3H, Phosphorus Level 5.0H, Magnesium Level 2.0, Total Bilirubin 0.3, Aspartate Amino Transf (AST/SGOT) 28, Alanine Aminotransferase (ALT/SGPT) 22, Alkaline Phosphatase 274H, Total Protein 7.8, Albumin 2.8L, Globulin 5.0, Albumin/Globulin Ratio 0.6L Current Medications Medications (Trade) Dose Ordered Sig/Amita Route PRN Reason Start Time Stop Time Status Last Admin Dose Admin Acetaminophen (Tylenol) 650 mg Q6H PRN ORAL For Headache 08/16/19 17:45 09/15/19 17:44 Acetaminophen/ Hydrocodone Bitart ([place] 10/325) 1 tab Q4H PRN ORAL For Pain 08/16/19 17:45 08/23/19 17:44 08/18/19 05:23 Amlodipine Besylate (Norvasc) 10 mg DAILY ORAL 08/16/19 20:00 09/15/19 19:59 08/18/19 08:18 Aripiprazole (Abilify) 20 mg DAILY ORAL 08/16/19 20:00 09/30/19 19:59 08/18/19 08:19 Clonidine HCl (Catapres Tab) 0.1 mg Q4H PRN ORAL SBP > 160 08/16/19 17:45 11/14/19 17:44 Dextrose (Dextrose 50%) 25 ml Q30M PRN IV Hypoglycemia 08/16/19 18:00 11/14/19 17:59 Dextrose (Dextrose 50%) 50 ml Q30M PRN IV Hypoglycemia 08/16/19 18:00 11/14/19 17:59 Divalproex Sodium (Depakote ER) 250 mg EVERY 12 HOURS ORAL 08/16/19 21:00 09/15/19 20:59 08/18/19 08:18 Docusate Sodium (Colace) 100 mg TID PRN ORAL Constipation 08/16/19 17:45 09/15/19 17:44 08/17/19 08:53 Duloxetine HCl (Cymbalta) 30 mg DAILY ORAL 08/16/19 20:00 11/14/19 19:59 08/18/19 08:18 Enoxaparin Sodium (Lovenox) 40 mg DAILY SUBQ 08/16/19 18:30 11/14/19 18:29 08/18/19 08:20 Famotidine (Pepcid I.v.) 20 mg Q12HR IVP 08/16/19 21:00 09/15/19 20:59 08/18/19 08:17 Hydralazine HCl (Apresoline) 25 mg EVERY 8 HOURS ORAL 08/16/19 22:00 11/14/19 21:59 08/18/19 05:21 Insulin Aspart (NovoLOG) BEFORE MEALS AND HS SUBQ 08/16/19 21:00 11/14/19 20:59 Lidocaine HCl (Xylocaine 1% 30ml) 30 ml NOW PRN INJ Radiology Procedure 08/16/19 18:00 08/18/19 17:51 Metoprolol Tartrate (Lopressor) 25 mg EVERY 12 HOURS ORAL 08/16/19 21:00 11/14/19 20:59 08/18/19 08:18 Morphine Sulfate (Morphine Sulfate) 2 mg Q4H PRN IVP FOR SEVERE PAIN 08/16/19 17:45 08/23/19 17:44 Assessment/Plan Assessment/Plan IMPRESSION: 1. Metastatic carcinoma, biopsy pending. 2. Hypertension. 3. Chronic back pain. 4. Bipolar disorder. 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 Benita Jama Omar Syed MD August 18, 2019 09:15
[2019-08-18 12:00] VITALS: BP 147/98
--- NOTE | 2019-08-18 15:44 | General Progress Note ---
Assessment/Plan Assessment/Plan: #Presumed Metastatic Lung CA w/ CT revealing diffuse pulmonary nodules, Hilar Adenopathy, along with osteolytic lesions ; Smoking Hx #Hypercalcemia, suspect of malignancy #Elevated alk phos due to bone mets #HTN #Bipolar/Schizo #Hx of DMII #Anemia of Chronic Dx -Stable Plan F/u Biopsy results Consults include Pulm and Onc; Appreciate recommendations. D/w Dr. Jaramillo and Dr. Burch Appreciate nephrology consult for hypercalcemia: D/w Dr. Steel Appreciate psych consult: D/w Dr. Aguilera Continue Norvasc, Hydralazine, Metoprolol , PRN clonidine Hold home oral DM agents; weight based insulin dosing and correction scale w/ ACHS accuchecks Resume Abilify, Depakote, Cymbalta Pain control prn; [place] and Morphine DVT ppx Lovenox, GI ppx Pepcid IV 1800 ADA Diet FENPPX DVTPPX: lovenox GI PPX: none Fluids: Diet: Diabetic Lines: none PT/OT: pending Code status: Full Dispo: Back to SNF Reason for Continued Hospitalization: Hypercalcemia, malignancy w/u 42 minutes spent on this encounter. Discussed with RN at bedside, nephrology, heme/onc. 23 spent on counseling and care coordination. Time of note may not reflect time patient was seen. Subjective Date patient seen: August 18, 2019 Allergies: Coded Allergies: No Known Allergies (Unverified , 07/27/19) Subjective Chart reviewed. Admitted for suspected new metastsatic malignancy. Former smoker. + weight loss. Complaining of generalized pain in bones. S/p IR guided bx yesterday. Results pending. Calcium elevated to 11.3 (corrected) Review of systems: Constitutional: Denies: chills, diaphoresis, fever, malaise, weakness, other HEENT: Denies: eye pain, blurred vision, tearing, double vision, ear pain, ear discharge, nose pain, nose congestion, throat pain, throat swelling, mouth pain , mouth swelling, Cardiovascular: Denies: chest pain, edema, lightheadedness, palpitations, syncope, Respiratory: Denies: cough, orthopnea, shortness of breath, SOB with excertion , SOB at rest, sputum, stridor, wheezing, other Gastrointestinal/Abdominal: Denies: abdomen distended, abdominal pain, black stools, tarry stools, blood in stool, constipated, diarrhea, difficulty swallowing, nausea, poor appetite, poor fluid intake, rectal bleeding, vomiting , other Genitourinary: Denies: burning, discharge, frequency, flank pain, hematuria, incontinence, pain, urgency, other Neurologic/Psychiatric: Denies: anxiety, depressed, emotional problems, headache, numbness, paresthesia, pre-existing deficit, seizure, tingling, tremors, weakness, other Endocrine: Denies: excessive sweating, flushing, intolerance to cold, intolerance to heat, increased hunger, increased thirst, increased urine, unexplained weight gain, unexplained weight loss, other MSK: Diffuse pain throughout body Hematologic/Lymphatic: Denies: anemia, easy bleeding, easy bruising, other Objective Last 24 Hour Vital Signs Date Time Temp Pulse Resp B/P (MAP) Pulse Ox O2 Delivery O2 Flow Rate FiO2 08/18/19 14:18 147/98 08/18/19 12:00 98.3 83 20 147/98 (114) 91 08/18/19 09:00 Room Air 08/18/19 08:18 60 150/80 08/18/19 08:18 60 156/80 08/18/19 08:00 98.1 78 20 150/96 (114) 91 08/18/19 05:21 156/80 08/18/19 04:00 97.9 60 18 140/79 (99) 91 08/18/19 00:00 97.9 63 20 143/76 (98) 91 08/17/19 22:17 77 139/78 08/17/19 22:15 139/78 08/17/19 21:00 Room Air 08/17/19 20:00 98.1 77 18 139/78 (98) 90 08/17/19 16:04 142/79 08/17/19 16:00 98.1 72 20 146/79 (101) 95 Intake and Output 08/17/19 08/18/19 19:00 07:00 Intake Total 400 ml Output Total 1000 ml 900 ml Balance -1000 ml -500 ml Intake Oral 400 ml Output Urine Total 1000 ml 900 ml # Voids 5 Laboratory Tests 08/17/19 15:45: Carcinoembryonic Antigen 1.8, CA 15-3 Antigen 16.3, CA 19-9 Antigen [Pending], [place] 125 Antigen 30.8 08/18/19 04:45: White Blood Count 5.1, Red Blood Count 4.38L, Hemoglobin 12.8L, Hematocrit 36.8L , Mean Corpuscular Volume 84, Mean Corpuscular Hemoglobin 29.3, Mean Corpuscular Hemoglobin Concent 34.8, Red Cell Distribution Width 12.7, Platelet Count 384, Mean Platelet Volume 5.6L, Neutrophils (%) (Auto) 63.3, Lymphocytes ( %) (Auto) 23.6, Monocytes (%) (Auto) 10.5H, Eosinophils (%) (Auto) 0.8, Basophils (%) (Auto) 1.9, Sodium Level 136, Potassium Level 4.1, Chloride Level 97L, Carbon Dioxide Level 30, Anion Gap 9, Blood Urea Nitrogen 10, Creatinine 0.7, Estimat Glomerular Filtration Rate > 60, Glucose Level 95, Calcium Level 10.3H, Phosphorus Level 5.0H, Magnesium Level 2.0, Total Bilirubin 0.3, Aspartate Amino Transf (AST/SGOT) 28, Alanine Aminotransferase (ALT/SGPT) 22, Alkaline Phosphatase 274H, Total Protein 7.8, Albumin 2.8L, Globulin 5.0, Albumin/Globulin Ratio 0.6L Height (Feet): 6 Height (Inches): 1.00 Weight (Pounds): 180 Objective General: [facility] male in [facility], A&O x 4 HEENT: Normocephalic cephalic atraumatic, pupils equal round reactive to light and accommodation, nares patent and no symmetrical, no tonsillar exudates, mucous membranes moist CV: Regular rate regular rhythm, no murmurs, rubs, or gallops Pulm: Lungs clear to auscultation bilaterally. No wheezes, rhonchi, or rales GI: Soft, nontender, nondistended, bowel sounds present Neuro: CN 2-12 intact bilaterally, no focal signs. Ext: No lower extremity edema bilaterally Skin: no rashes lesions or ulcers. BIOPSY site is C/d/i. No drainage or erythema. Msk: Joints symmetrical in upper extremity and lower extremity bilaterally, no joint swelling. Lymph: No lymphadenopathy in upper extremity and lower extremity Alexander Abernathy D.O. August 18, 2019 15:44
[2019-08-18 16:00] VITALS: BP 139/87
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
[2019-08-18] MEDS: Sodium Chloride 550 ML IV SCH (16:51)
[2019-08-18 20:00] VITALS: BP 162/81
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
[2019-08-18] MEDS ORDERED: Gadavist 7.5mMol/7.5ml vial IV PRN (21:00)
[2019-08-19] VITALS: BP 137/76
[2019-08-19] MEDS: HYDROcodone/Acetamin 10/325 tab ORAL PRN ×2 (03:28→20:55)
[2019-08-19] MEDS: Sodium Chloride 550 ML IV SCH ×2 (03:28→14:53)
[2019-08-19 04:00] VITALS: BP 141/78
[2019-08-19] MEDS: HydrALAZINE 25mg tab ORAL SCH ×3 (05:51→21:24)
[2019-08-19] MEDS: NovoLOG Insulin Flexpen SUBQ SCH ×4 (06:17→20:53)
--- NOTE | 2019-08-19 07:18 | Hematology/Onc Progress Note ---
Assessment/Plan Assessment/Plan Assessment and Recs # Metastatic disease including multiple pulmonary lesions, mediastinal and hilar adenopathy, multiple osteolytic rib lesions and subtle low-density areas in the liver suspicious for underlying metastasis. --> tumor markers have been ordered --> ct guided biopsy ordered with Dr. Rubio, --> 08/16 ct guided biop of rib lesion performed, waiting path report --> outpatient care # Anemia of chronic disease --> hgb currently stable # Intractable vomiting --> zofran prn # Dehydration --> renal eval as needed # Dvt ppx scds for now pre-proceudre The timing of this note does not necessarily reflect the time of the patient was seen. Greatly appreciate consultation. Subjective Allergies: Coded Allergies: No Known Allergies (Unverified , 07/27/19) Subjective 08/17 s/p successful ct guided biop of rib lesion, awaiting path report, no distress 08/18 confused, no overnight events, [ending consent for mri brain w/ contrast Objective Objective Current Medications Medications (Trade) Dose Ordered Sig/Amita Route PRN Reason Start Time Stop Time Status Last Admin Dose Admin Acetaminophen (Tylenol) 650 mg Q6H PRN ORAL For Headache 08/16/19 17:45 09/15/19 17:44 08/19/19 01:08 Acetaminophen/ Hydrocodone Bitart ([place] 10/325) 1 tab Q4H PRN ORAL For Pain 08/16/19 17:45 08/23/19 17:44 08/19/19 03:28 Amlodipine Besylate (Norvasc) 10 mg DAILY ORAL 08/16/19 20:00 09/15/19 19:59 08/18/19 08:18 Aripiprazole (Abilify) 20 mg DAILY ORAL 08/16/19 20:00 09/30/19 19:59 08/18/19 08:19 Clonidine HCl (Catapres Tab) 0.1 mg Q4H PRN ORAL SBP > 160 08/16/19 17:45 11/14/19 17:44 Dextrose (Dextrose 50%) 25 ml Q30M PRN IV Hypoglycemia 08/16/19 18:00 11/14/19 17:59 Dextrose (Dextrose 50%) 50 ml Q30M PRN IV Hypoglycemia 08/16/19 18:00 11/14/19 17:59 Divalproex Sodium (Depakote ER) 250 mg EVERY 12 HOURS ORAL 08/16/19 21:00 09/15/19 20:59 08/18/19 21:20 Docusate Sodium (Colace) 100 mg TID PRN ORAL Constipation 08/16/19 17:45 09/15/19 17:44 08/17/19 08:53 Duloxetine HCl (Cymbalta) 30 mg DAILY ORAL 08/16/19 20:00 11/14/19 19:59 08/18/19 08:18 Enoxaparin Sodium (Lovenox) 40 mg DAILY SUBQ 08/16/19 18:30 11/14/19 18:29 08/18/19 08:20 Famotidine (Pepcid I.v.) 20 mg Q12HR IVP 08/16/19 21:00 09/15/19 20:59 08/18/19 21:20 Gadobutrol (Gadavist) 7.5 mmol NOW PRN IV Radiology Procedure 08/18/19 21:00 08/22/19 20:53 Hydralazine HCl (Apresoline) 25 mg EVERY 8 HOURS ORAL 08/16/19 22:00 11/14/19 21:59 08/19/19 05:51 Insulin Aspart (NovoLOG) BEFORE MEALS AND HS SUBQ 08/16/19 21:00 11/14/19 20:59 Metoprolol Tartrate (Lopressor) 25 mg EVERY 12 HOURS ORAL 08/16/19 21:00 11/14/19 20:59 08/18/19 21:21 Morphine Sulfate (Morphine Sulfate) 2 mg Q4H PRN IVP FOR SEVERE PAIN 08/16/19 17:45 08/23/19 17:44 Sodium Chloride 550 ml @ 50 mls/hr Q11H IV 08/18/19 16:45 09/17/19 16:44 08/19/19 03:28 Last 24 Hour Vital Signs Date Time Temp Pulse Resp B/P (MAP) Pulse Ox O2 Delivery O2 Flow Rate FiO2 08/19/19 05:51 141/78 08/19/19 04:00 97.2 58 18 141/78 (99) 90 08/19/19 03:58 97.3 08/19/19 01:38 97.3 08/19/19 00:00 97.3 62 18 137/76 (96) 93 08/18/19 21:21 74 162/81 08/18/19 21:21 162/81 08/18/19 21:00 Room Air 08/18/19 20:00 98.2 74 18 162/81 (108) 94 08/18/19 16:00 98.7 77 18 139/87 (104) 95 08/18/19 14:18 147/98 08/18/19 12:00 98.3 83 20 147/98 (114) 93 08/18/19 09:00 Room Air 08/18/19 08:18 60 150/80 08/18/19 08:18 60 156/80 08/18/19 08:00 98.1 78 20 150/96 (114) 94 08/18/19 05:21 156/80 08/18/19 04:00 97.9 60 18 140/79 (99) 91 08/18/19 00:00 97.9 63 20 143/76 (98) 91 08/17/19 22:17 77 139/78 08/17/19 22:15 139/78 08/17/19 21:00 Room Air 08/17/19 20:00 98.1 77 18 139/78 (98) 90 08/17/19 16:04 142/79 08/17/19 16:00 98.1 72 20 146/79 (101) 95 08/17/19 13:55 98.0 81 25 133/78 (96) 97 08/17/19 13:48 81 25 08/17/19 12:00 98.5 74 20 142/79 (100) 95 08/17/19 09:00 Room Air 08/17/19 08:52 73 147/75 08/17/19 08:51 73 147/75 08/17/19 08:00 98.3 78 18 147/75 (99) 94 Intake and Output 08/18/19 08/19/19 18:59 06:59 Intake Total 450 ml Output Total 800 ml 1000 ml Balance -800 ml -550 ml Intake Oral 450 ml Output Urine Total 800 ml 1000 ml # Voids 3 5 Labs Test 08/16/19 15:40 08/16/19 16:00 08/16/19 17:30 08/16/19 20:50 White Blood Count 6.5 K/UL (4.8-10.8) Red Blood Count 4.01 M/UL (4.70-6.10) Hemoglobin 12.0 G/DL (14.2-18.0) Hematocrit 35.9 % (42.0-52.0) Mean Corpuscular Volume 90 FL (80-99) Mean Corpuscular Hemoglobin 29.8 PG (27.0-31.0) Mean Corpuscular Hemoglobin Concent 33.3 G/DL (32.0-36.0) Red Cell Distribution Width 14.8 % (11.6-14.8) Platelet Count 351 K/UL (150-450) Mean Platelet Volume 7.3 FL (6.5-10.1) Neutrophils (%) (Auto) 68.0 % (45.0-75.0) Lymphocytes (%) (Auto) 23.1 % (20.0-45.0) Monocytes (%) (Auto) 6.1 % (1.0-10.0) Eosinophils (%) (Auto) 1.1 % (0.0-3.0) Basophils (%) (Auto) 1.7 % (0.0-2.0) Prothrombin Time 11.2 SEC (9.30-11.50) Prothromb Time International Ratio 1.0 (0.9-1.1) Activated Partial Thromboplast Time 30 SEC (23-33) Sodium Level 133 MMOL/L (136-145) Potassium Level 4.2 MMOL/L (3.5-5.1) Chloride Level 94 MMOL/L (98-107) Carbon Dioxide Level 27 MMOL/L (21-32) Anion Gap 12 mmol/L (5-15) Blood Urea Nitrogen 8 mg/dL (7-18) Creatinine 0.7 MG/DL (0.55-1.30) Estimat Glomerular Filtration Rate > 60 mL/min (>60) Glucose Level 87 MG/DL (74-106) Hemoglobin A1c 6.6 % (4.3-6.0) Lactic Acid Level 3.60 mmol/L (0.4-2.0) 2.20 mmol/L (0.66-2.22) 1.30 mmol/L (0.4-2.0) Uric Acid 4.6 MG/DL (2.6-7.2) Calcium Level 9.8 MG/DL (8.5-10.1) Phosphorus Level 4.7 MG/DL (2.5-4.9) Magnesium Level 1.9 MG/DL (1.8-2.4) Total Bilirubin 0.2 MG/DL (0.2-1.0) Aspartate Amino Transf (AST/SGOT) 25 U/L (15-37) Alanine Aminotransferase (ALT/SGPT) 23 U/L (12-78) Alkaline Phosphatase 260 U/L (46-116) Lactate Dehydrogenase 413 U/L (81-234) Troponin I 0.000 ng/mL (0.000-0.056) Total Protein 7.6 G/DL (6.4-8.2) Albumin 2.7 G/DL (3.4-5.0) Globulin 4.9 g/dL Albumin/Globulin Ratio 0.6 (1.0-2.7) Lipase 145 U/L (73-393) Serum Alcohol < 3 mg/dL Urine Color Yellow Urine Appearance Clear Urine pH 6 (4.5-8.0) Urine Specific Leonardo 1.015 (1.005-1.035) Urine Protein 2+ (NEGATIVE) Urine Glucose (UA) Negative (NEGATIVE) Urine Ketones 2+ (NEGATIVE) Urine Blood Negative (NEGATIVE) Urine Nitrite Negative (NEGATIVE) Urine Bilirubin 1+ (NEGATIVE) Urine Ictotest Negative (NEGATIVE) Urine Urobilinogen 8 MG/DL (0.0-1.0) Urine Leukocyte Esterase 1+ (NEGATIVE) Urine RBC 0-2 /HPF (0 - 0) Urine WBC 2-4 /HPF (0 - 0) Urine Squamous Epithelial Cells None /LPF (NONE/OCC) Urine Bacteria Few /HPF (NONE) Urine Opiates Screen Negative (NEGATIVE) Urine Barbiturates Screen Negative (NEGATIVE) Phencyclidine (PCP) Screen Negative (NEGATIVE) Urine Amphetamines Screen Negative (NEGATIVE) Urine Benzodiazepines Screen Negative (NEGATIVE) Urine Cocaine Screen Negative (NEGATIVE) Urine Marijuana (THC) Screen Negative (NEGATIVE) Test 08/17/19 15:45 08/18/19 04:45 08/18/19 19:40 Carcinoembryonic Antigen 1.8 ng/mL (0.0-4.7) CA 15-3 Antigen 16.3 U/mL (0.0-25.0) CA 125 Antigen 30.8 U/mL (Not Estab.) White Blood Count 5.1 K/UL (4.8-10.8) Red Blood Count 4.38 M/UL (4.70-6.10) Hemoglobin 12.8 G/DL (14.2-18.0) Hematocrit 36.8 % (42.0-52.0) Mean Corpuscular Volume 84 FL (80-99) Mean Corpuscular Hemoglobin 29.3 PG (27.0-31.0) Mean Corpuscular Hemoglobin Concent 34.8 G/DL (32.0-36.0) Red Cell Distribution Width 12.7 % (11.6-14.8) Platelet Count 384 K/UL (150-450) Mean Platelet Volume 5.6 FL (6.5-10.1) Neutrophils (%) (Auto) 63.3 % (45.0-75.0) Lymphocytes (%) (Auto) 23.6 % (20.0-45.0) Monocytes (%) (Auto) 10.5 % (1.0-10.0) Eosinophils (%) (Auto) 0.8 % (0.0-3.0) Basophils (%) (Auto) 1.9 % (0.0-2.0) Sodium Level 136 MMOL/L (136-145) Potassium Level 4.1 MMOL/L (3.5-5.1) Chloride Level 97 MMOL/L (98-107) Carbon Dioxide Level 30 MMOL/L (21-32) Anion Gap 9 mmol/L (5-15) Blood Urea Nitrogen 10 mg/dL (7-18) Creatinine 0.7 MG/DL (0.55-1.30) Estimat Glomerular Filtration Rate > 60 mL/min (>60) Glucose Level 95 MG/DL (74-106) Calcium Level 10.3 MG/DL (8.5-10.1) Phosphorus Level 5.0 MG/DL (2.5-4.9) Magnesium Level 2.0 MG/DL (1.8-2.4) Total Bilirubin 0.3 MG/DL (0.2-1.0) Aspartate Amino Transf (AST/SGOT) 28 U/L (15-37) Alanine Aminotransferase (ALT/SGPT) 22 U/L (12-78) Alkaline Phosphatase 274 U/L (46-116) Total Protein 7.8 G/DL (6.4-8.2) Albumin 2.8 G/DL (3.4-5.0) Globulin 5.0 g/dL Albumin/Globulin Ratio 0.6 (1.0-2.7) Ionized Calcium (Measured) 1.20 mmol/L (1.10-1.35) Height (Feet): 6 Height (Inches): 1.00 Weight (Pounds): 180 Objective Physical Exam: Vitals: reviewed General: NAD HEENT: nc, at Neck: supple Chest: clear breath sounds bilaterally Cardiovascular: RRR, no s3, s4 Abdomen: soft, nontender, nd Extremities: no cce, normal range of motion Neuro: alert and oriented Sam Burch MD August 19, 2019 07:17
--- NOTE | 2019-08-19 07:42 | Pulmonology Progress Note ---
Subjective Interval Events: None new' s/p lung biopsy HEENT: Repors: no symptoms Respiratory: Reports: no symptoms Gastrointestinal/Abdominal: Reports: no symptoms Allergies: Coded Allergies: No Known Allergies (Unverified , 07/27/19) Objective Last 24 Hour Vital Signs Date Time Temp Pulse Resp B/P (MAP) Pulse Ox O2 Delivery O2 Flow Rate FiO2 08/19/19 05:51 141/78 08/19/19 04:00 97.2 58 18 141/78 (99) 90 08/19/19 03:58 97.3 08/19/19 01:38 97.3 08/19/19 00:00 97.3 62 18 137/76 (96) 93 08/18/19 21:21 74 162/81 08/18/19 21:21 162/81 08/18/19 21:00 Room Air 08/18/19 20:00 98.2 74 18 162/81 (108) 94 08/18/19 16:00 98.7 77 18 139/87 (104) 95 08/18/19 14:18 147/98 08/18/19 12:00 98.3 83 20 147/98 (114) 93 08/18/19 09:00 Room Air 08/18/19 08:18 60 150/80 08/18/19 08:18 60 156/80 08/18/19 08:00 98.1 78 20 150/96 (114) 94 Intake and Output 08/18/19 08/19/19 18:59 06:59 Intake Total 450 ml Output Total 800 ml 1000 ml Balance -800 ml -550 ml Intake Oral 450 ml Output Urine Total 800 ml 1000 ml # Voids 3 5 General Appearance: no acute distress Respiratory: chest wall non-tender Cardiovascular: normal peripheral pulses Microbiology Date/Time Source Procedure Growth Status 08/16/19 17:30 Nasal Nares MRSA Culture - Final NO METHICILLIN RESISTANT STAPH AUREUS... Complete 08/16/19 17:30 Rectum - Final NO CARBAPENEM-RESISTANT ENTEROBACTERI... Complete 08/16/19 17:30 Rectum VRE Culture - Final NO VANCOMYCIN RESISTANT ENTEROCOCCUS ... Complete Laboratory Tests 08/18/19 19:40: Calcium (Send out) [Pending], Ionized Calcium (Measured) 1.20, Parathyroid Hormone (Intact) [Pending], Parathyroid Hormone Related Protein [Pending] Current Medications Medications (Trade) Dose Ordered Sig/Amita Route PRN Reason Start Time Stop Time Status Last Admin Dose Admin Acetaminophen (Tylenol) 650 mg Q6H PRN ORAL For Headache 08/16/19 17:45 09/15/19 17:44 08/19/19 01:08 Acetaminophen/ Hydrocodone Bitart ([place] 10/325) 1 tab Q4H PRN ORAL For Pain 08/16/19 17:45 08/23/19 17:44 08/19/19 03:28 Amlodipine Besylate (Norvasc) 10 mg DAILY ORAL 08/16/19 20:00 09/15/19 19:59 08/18/19 08:18 Aripiprazole (Abilify) 20 mg DAILY ORAL 08/16/19 20:00 09/30/19 19:59 08/18/19 08:19 Clonidine HCl (Catapres Tab) 0.1 mg Q4H PRN ORAL SBP > 160 08/16/19 17:45 11/14/19 17:44 Dextrose (Dextrose 50%) 25 ml Q30M PRN IV Hypoglycemia 08/16/19 18:00 11/14/19 17:59 Dextrose (Dextrose 50%) 50 ml Q30M PRN IV Hypoglycemia 08/16/19 18:00 11/14/19 17:59 Divalproex Sodium (Depakote ER) 250 mg EVERY 12 HOURS ORAL 08/16/19 21:00 09/15/19 20:59 08/18/19 21:20 Docusate Sodium (Colace) 100 mg TID PRN ORAL Constipation 08/16/19 17:45 09/15/19 17:44 08/17/19 08:53 Duloxetine HCl (Cymbalta) 30 mg DAILY ORAL 08/16/19 20:00 11/14/19 19:59 08/18/19 08:18 Enoxaparin Sodium (Lovenox) 40 mg DAILY SUBQ 08/16/19 18:30 11/14/19 18:29 08/18/19 08:20 Famotidine (Pepcid I.v.) 20 mg Q12HR IVP 08/16/19 21:00 09/15/19 20:59 08/18/19 21:20 Gadobutrol (Gadavist) 7.5 mmol NOW PRN IV Radiology Procedure 08/18/19 21:00 08/22/19 20:53 Hydralazine HCl (Apresoline) 25 mg EVERY 8 HOURS ORAL 08/16/19 22:00 11/14/19 21:59 08/19/19 05:51 Insulin Aspart (NovoLOG) BEFORE MEALS AND HS SUBQ 08/16/19 21:00 11/14/19 20:59 Metoprolol Tartrate (Lopressor) 25 mg EVERY 12 HOURS ORAL 08/16/19 21:00 11/14/19 20:59 08/18/19 21:21 Morphine Sulfate (Morphine Sulfate) 2 mg Q4H PRN IVP FOR SEVERE PAIN 08/16/19 17:45 08/23/19 17:44 Sodium Chloride 550 ml @ 50 mls/hr Q11H IV 08/18/19 16:45 09/17/19 16:44 08/19/19 03:28 Assessment/Plan Assessment/Plan IMPRESSION: 1. Metastatic carcinoma, biopsy results pending. 2. Hypertension. 3. Chronic back pain. 4. Bipolar disorder. DISCUSSION: S/p lung biopsy I will follow as [employer]. Benita Jama Omar Syed MD August 19, 2019 07:42
[2019-08-19 08:00] VITALS: BP 145/73
[2019-08-19 08:38] LABS: HEMATOCRIT 40.8 % (42.0-52.0); MEAN CORPUSCULAR VOLUME 85 FL (80-99); PLATELET COUNT 405 K/UL (150-450); WHITE BLOOD COUNT 5.5 K/UL (4.8-10.8)
[2019-08-19 09:16] LABS: ALANINE AMINOTRANSFERASE 25 U/L (12-78); ALBUMIN/GLOBULIN RATIO 0.6 (1.0-2.7); ALKALINE PHOSPHATASE 305 U/L (46-116); ANION GAP 13 mmol/L (5-15); ASPARTATE AMINO TRANSFERASE 37 U/L (15-37); BILIRUBIN,TOTAL 0.4 MG/DL (0.2-1.0); BLOOD UREA NITROGEN 10 mg/dL (7-18); CALCIUM 10.5 MG/DL (8.5-10.1); CARBON DIOXIDE 27 MMOL/L (21-32); CHLORIDE 98 MMOL/L (98-107); CREATININE 0.7 MG/DL (0.55-1.30); PHOSPHORUS 4.9 MG/DL (2.5-4.9); POTASSIUM 4.4 MMOL/L (3.5-5.1); SODIUM 138 MMOL/L (136-145)
[2019-08-19] MEDS: ARIPiprazole 10mg tab ORAL SCH (10:01)
[2019-08-19] MEDS: DULoxetine 30mg cap ORAL SCH (10:01)
[2019-08-19] MEDS: Depakote ER 250mg tab ORAL SCH ×2 (10:02→20:45)
[2019-08-19] MEDS: Enoxaparin 40mg Inj SUBQ SCH (10:07)
--- NOTE | 2019-08-19 11:44 | Nephrology Progress Note ---
Assessment/Plan Plan #Hypercalcemia likely related to malignancy #New onset lung malignancy- given CT findings #HTN #Bipolar/Schizo #Hx of DMII #Anemia of Chronic Dx -Stable - NS at 50 cc/hr for one more day - lasix 20 IV x1 - check free calcium - check PTH/vitamin D - continue amlodipine 10mg daily - add hydrallazine 25g TID - monitor i&Os - avoid nephrotoxins - check mag, amie, phs daily Time spent 70 min, greater than 35 min on care coordination and counseling Subjective ROS Limited/Unobtainable: No Constitutional: Denies: no symptoms, chills, diaphoresis, fever, malaise, weakness, other HEENT: Denies: no symptoms, eye pain, blurred vision, tearing, double vision, ear pain, ear discharge, nose pain, nose congestion, throat pain, throat swelling, mouth pain, mouth swelling, other Genitourinary: Denies: no symptoms, burning, discharge, frequency, flank pain, hematuria, incontinence, pain, urgency, other Neurologic/Psychiatric: Denies: no symptoms, anxiety, depressed, emotional problems, headache, numbness, paresthesia, pre-existing deficit, seizure, tingling, tremors, weakness, other Subjective notes some pain at the biopsy site calcium 10.5 will check free calcium other labs pending Objective Objective Last 24 Hour Vital Signs Date Time Temp Pulse Resp B/P (MAP) Pulse Ox O2 Delivery O2 Flow Rate FiO2 08/19/19 10:31 98.1 08/19/19 10:02 73 145/73 08/19/19 10:01 73 145/73 08/19/19 09:00 Room Air 08/19/19 08:00 98.1 73 18 145/73 (97) 93 08/19/19 05:51 141/78 08/19/19 04:00 97.2 58 18 141/78 (99) 90 08/19/19 03:58 97.3 08/19/19 00:00 97.3 62 18 137/76 (96) 93 08/18/19 21:21 74 162/81 08/18/19 21:21 162/81 08/18/19 21:00 Room Air 08/18/19 20:00 98.2 74 18 162/81 (108) 94 08/18/19 16:00 98.7 77 18 139/87 (104) 95 08/18/19 14:18 147/98 08/18/19 12:00 98.3 83 20 147/98 (114) 93 Intake and Output 08/18/19 08/19/19 19:00 07:00 Intake Total 450 ml Output Total 800 ml 1000 ml Balance -800 ml -550 ml Intake Oral 450 ml Output Urine Total 800 ml 1000 ml # Voids 3 5 Laboratory Tests 08/18/19 19:40: Calcium (Send out) [Pending], Ionized Calcium (Measured) 1.20, Parathyroid Hormone (Intact) [Pending], Parathyroid Hormone Related Protein [Pending] 08/19/19 08:02: White Blood Count 5.5, Red Blood Count 4.80, Hemoglobin 14.0L, Hematocrit 40.8L , Mean Corpuscular Volume 85, Mean Corpuscular Hemoglobin 29.2, Mean Corpuscular Hemoglobin Concent 34.3, Red Cell Distribution Width 13.0, Platelet Count 405, Mean Platelet Volume 5.5L, Neutrophils (%) (Auto) , Lymphocytes (%) ( Auto) , Monocytes (%) (Auto) , Eosinophils (%) (Auto) , Basophils (%) (Auto) , Differential Total Cells Counted 100, Neutrophils % (Manual) 67, Lymphocytes % ( Manual) 26, Monocytes % (Manual) 7, Eosinophils % (Manual) 0, Basophils % ( Manual) 0, Band Neutrophils 0, Platelet Estimate Adequate, Platelet Morphology Normal, Red Blood Cell Morphology Normal, Sodium Level 138, Potassium Level 4.4 , Chloride Level 98, Carbon Dioxide Level 27, Anion Gap 13, Blood Urea Nitrogen 10, Creatinine 0.7, Estimat Glomerular Filtration Rate > 60, Glucose Level 112H , Calcium Level 10.5H, Phosphorus Level 4.9, Magnesium Level 2.0, Total Bilirubin 0.4, Aspartate Amino Transf (AST/SGOT) 37, Alanine Aminotransferase ( ALT/SGPT) 25, Alkaline Phosphatase 305H, Total Protein 8.3H, Albumin 3.0L, Globulin 5.3, Albumin/Globulin Ratio 0.6L, Vitamin D 25-Hydroxy [Pending], 25- Hydroxy Vitamin D2 [Pending], 25-Hydroxy Vitamin D3 [Pending] Height (Feet): 6 Height (Inches): 1.00 Weight (Pounds): 180 General Appearance: no apparent distress EENT: PERRL/EOMI, normal ENT inspection Neck: non-tender, normal alignment Cardiovascular: normal peripheral pulses, normal rate, regular rhythm Respiratory/Chest: lungs clear, normal breath sounds Abdomen: normal bowel sounds, non tender, soft Extremities: normal range of motion, non-tender Neurologic: alert, oriented x 3, responsive Deisy Steel M.D. August 19, 2019 11:44
[2019-08-19 12:00] VITALS: BP 136/72
[2019-08-19 16:00] VITALS: BP 131/79
--- NOTE | 2019-08-19 19:22 | General Progress Note ---
Assessment/Plan Assessment/Plan: #Presumed Metastatic Lung CA w/ CT revealing diffuse pulmonary nodules, Hilar Adenopathy, along with osteolytic lesions ; Smoking Hx #Hypercalcemia, suspect of malignancy #Elevated alk phos due to bone mets #HTN #Bipolar/Schizo #Hx of DMII #Anemia of Chronic Dx -Stable Plan F/u Biopsy results Consults include Pulm and Onc; Appreciate recommendations. D/w Dr. Jaramillo and Dr. Burch Appreciate nephrology consult for hypercalcemia: D/w Dr. Steel -Continue IV fluids, PTH, Vitamin D levels. CTM Appreciate psych consult: D/w Dr. Aguilera Appreciate Neurology consult. D/w Dr. Melgoza ---> MRI brain Continue Norvasc, Hydralazine, Metoprolol , PRN clonidine Hold home oral DM agents; weight based insulin dosing and correction scale w/ ACHS accuchecks Resume Abilify, Depakote, Cymbalta Pain control prn; [place] and Morphine DVT ppx Lovenox, GI ppx Pepcid IV 1800 ADA Diet FENPPX DVTPPX: lovenox GI PPX: none Fluids: Diet: Diabetic Lines: none PT/OT: pending Code status: Full Dispo: Back to SNF Reason for Continued Hospitalization: Hypercalcemia, malignancy w/u 39 minutes spent on this encounter. Discussed with RN at bedside, nephrology, heme/onc, neurology. 20 spent on counseling and care coordination. Time of note may not reflect time patient was seen. Subjective Date patient seen: August 19, 2019 Allergies: Coded Allergies: No Known Allergies (Unverified , 07/27/19) Subjective NO acute events overnight per nursing. Patient's pain well controlled. Neuro recommending MRI brain to eval for mets. Pending. Denies fever, chills, nausea, vomiting, abdominal pain. Review of systems: Constitutional: Denies: chills, diaphoresis, fever, malaise, weakness, other HEENT: Denies: eye pain, blurred vision, tearing, double vision, ear pain, ear discharge, nose pain, nose congestion, throat pain, throat swelling, mouth pain , mouth swelling, Cardiovascular: Denies: chest pain, edema, lightheadedness, palpitations, syncope, Respiratory: Denies: cough, orthopnea, shortness of breath, SOB with excertion , SOB at rest, sputum, stridor, wheezing, other Gastrointestinal/Abdominal: Denies: abdomen distended, abdominal pain, black stools, tarry stools, blood in stool, constipated, diarrhea, difficulty swallowing, nausea, poor appetite, poor fluid intake, rectal bleeding, vomiting , other Genitourinary: Denies: burning, discharge, frequency, flank pain, hematuria, incontinence, pain, urgency, other Neurologic/Psychiatric: Denies: anxiety, depressed, emotional problems, headache, numbness, paresthesia, pre-existing deficit, seizure, tingling, tremors, weakness, other Endocrine: Denies: excessive sweating, flushing, intolerance to cold, intolerance to heat, increased hunger, increased thirst, increased urine, unexplained weight gain, unexplained weight loss, other MSK: Diffuse pain throughout body Hematologic/Lymphatic: Denies: anemia, easy bleeding, easy bruising, other Objective Last 24 Hour Vital Signs Date Time Temp Pulse Resp B/P (MAP) Pulse Ox O2 Delivery O2 Flow Rate FiO2 08/19/19 16:00 97.0 63 17 131/79 (96) 95 08/19/19 14:51 136/72 08/19/19 12:00 98.6 60 18 136/72 (93) 93 08/19/19 10:31 98.1 08/19/19 10:02 73 145/73 08/19/19 10:01 73 145/73 08/19/19 09:00 Room Air 08/19/19 08:00 98.1 73 18 145/73 (97) 93 08/19/19 05:51 141/78 08/19/19 04:00 97.2 58 18 141/78 (99) 90 08/19/19 03:58 97.3 08/19/19 00:00 97.3 62 18 137/76 (96) 93 08/18/19 21:21 74 162/81 08/18/19 21:21 162/81 08/18/19 21:00 Room Air 08/18/19 20:00 98.2 74 18 162/81 (108) 94 Intake and Output 08/18/19 08/19/19 19:00 07:00 Intake Total 500 ml Output Total 800 ml 1000 ml Balance -800 ml -500 ml Intake Oral 450 ml IV Total 50 ml Output Urine Total 800 ml 1000 ml # Voids 3 5 Laboratory Tests 08/18/19 19:40: Calcium (Send out) [Pending], Ionized Calcium (Measured) 1.20, Parathyroid Hormone (Intact) [Pending], Parathyroid Hormone Related Protein [Pending] 08/19/19 08:02: White Blood Count 5.5, Red Blood Count 4.80, Hemoglobin 14.0L, Hematocrit 40.8L , Mean Corpuscular Volume 85, Mean Corpuscular Hemoglobin 29.2, Mean Corpuscular Hemoglobin Concent 34.3, Red Cell Distribution Width 13.0, Platelet Count 405, Mean Platelet Volume 5.5L, Neutrophils (%) (Auto) , Lymphocytes (%) ( Auto) , Monocytes (%) (Auto) , Eosinophils (%) (Auto) , Basophils (%) (Auto) , Differential Total Cells Counted 100, Neutrophils % (Manual) 67, Lymphocytes % ( Manual) 26, Monocytes % (Manual) 7, Eosinophils % (Manual) 0, Basophils % ( Manual) 0, Band Neutrophils 0, Platelet Estimate Adequate, Platelet Morphology Normal, Red Blood Cell Morphology Normal, Sodium Level 138, Potassium Level 4.4 , Chloride Level 98, Carbon Dioxide Level 27, Anion Gap 13, Blood Urea Nitrogen 10, Creatinine 0.7, Estimat Glomerular Filtration Rate > 60, Glucose Level 112H , Calcium Level 10.5H, Phosphorus Level 4.9, Magnesium Level 2.0, Total Bilirubin 0.4, Aspartate Amino Transf (AST/SGOT) 37, Alanine Aminotransferase ( ALT/SGPT) 25, Alkaline Phosphatase 305H, Total Protein 8.3H, Albumin 3.0L, Globulin 5.3, Albumin/Globulin Ratio 0.6L, Vitamin D 25-Hydroxy [Pending], 25- Hydroxy Vitamin D2 [Pending], 25-Hydroxy Vitamin D3 [Pending] Height (Feet): 6 Height (Inches): 1.00 Weight (Pounds): 180 Objective As of 08/19/2019 General: WDWN male in NAD, A&O x 4 HEENT: Normocephalic cephalic atraumatic, pupils equal round reactive to light and accommodation, nares patent and no symmetrical, no tonsillar exudates, mucous membranes moist CV: Regular rate regular rhythm, no murmurs, rubs, or gallops Pulm: Lungs clear to auscultation bilaterally. No wheezes, rhonchi, or rales GI: Soft, nontender, nondistended, bowel sounds present Neuro: CN 2-12 intact bilaterally, no focal signs. Ext: No lower extremity edema bilaterally Skin: no rashes lesions or ulcers. BIOPSY site is C/d/i. No drainage or erythema. Msk: Joints symmetrical in upper extremity and lower extremity bilaterally, no joint swelling. Lymph: No lymphadenopathy in upper extremity and lower extremity Alexander Abernathy D.O. August 19, 2019 19:22
[2019-08-19 20:00] VITALS: BP 135/77
--- NOTE | 2019-08-19 22:57 | Neurology Progress Note ---
Interim History Interim History ROS Limited/Unobtainable: No Interim History fu biopsy mri brain not done Objective Physical Exam Last Vital Signs Date Time Temp Pulse Resp B/P (MAP) Pulse Ox O2 Delivery O2 Flow Rate FiO2 08/19/19 21:25 97.0 08/19/19 21:24 142/78 08/19/19 20:49 72 08/19/19 16:00 17 95 08/19/19 09:00 Room Air 08/16/19 18:30 2.0 Laboratory Tests Test 08/19/19 08:02 White Blood Count 5.5 K/UL (4.8-10.8) Red Blood Count 4.80 M/UL (4.70-6.10) Hemoglobin 14.0 G/DL (14.2-18.0) L Hematocrit 40.8 % (42.0-52.0) L Mean Corpuscular Volume 85 FL (80-99) Mean Corpuscular Hemoglobin 29.2 PG (27.0-31.0) Mean Corpuscular Hemoglobin Concent 34.3 G/DL (32.0-36.0) Red Cell Distribution Width 13.0 % (11.6-14.8) Platelet Count 405 K/UL (150-450) Mean Platelet Volume 5.5 FL (6.5-10.1) L Neutrophils (%) (Auto) % (45.0-75.0) Lymphocytes (%) (Auto) % (20.0-45.0) Monocytes (%) (Auto) % (1.0-10.0) Eosinophils (%) (Auto) % (0.0-3.0) Basophils (%) (Auto) % (0.0-2.0) Differential Total Cells Counted 100 Neutrophils % (Manual) 67 % (45-75) Lymphocytes % (Manual) 26 % (20-45) Monocytes % (Manual) 7 % (1-10) Eosinophils % (Manual) 0 % (0-3) Basophils % (Manual) 0 % (0-2) Band Neutrophils 0 % (0-8) Platelet Estimate Adequate Platelet Morphology Normal Red Blood Cell Morphology Normal Sodium Level 138 MMOL/L (136-145) Potassium Level 4.4 MMOL/L (3.5-5.1) Chloride Level 98 MMOL/L (98-107) Carbon Dioxide Level 27 MMOL/L (21-32) Anion Gap 13 mmol/L (5-15) Blood Urea Nitrogen 10 mg/dL (7-18) Creatinine 0.7 MG/DL (0.55-1.30) Estimat Glomerular Filtration Rate > 60 mL/min (>60) Glucose Level 112 MG/DL (74-106) H Calcium Level 10.5 MG/DL (8.5-10.1) H Phosphorus Level 4.9 MG/DL (2.5-4.9) Magnesium Level 2.0 MG/DL (1.8-2.4) Total Bilirubin 0.4 MG/DL (0.2-1.0) Aspartate Amino Transf (AST/SGOT) 37 U/L (15-37) Alanine Aminotransferase (ALT/SGPT) 25 U/L (12-78) Alkaline Phosphatase 305 U/L (46-116) H Total Protein 8.3 G/DL (6.4-8.2) H Albumin 3.0 G/DL (3.4-5.0) L Globulin 5.3 g/dL Albumin/Globulin Ratio 0.6 (1.0-2.7) L Vitamin D 25-Hydroxy Pending 25-Hydroxy Vitamin D2 Pending 25-Hydroxy Vitamin D3 Pending General: well developed Head: normocophalic Neck: no rigidity Neurologic Exam Objective tangential speech moves all 4 non focal Impression/Recommendations Problems: (1) Abnormal laboratory test result (2) Dehydration (3) Intractable vomiting Diagnostic Impression #Presumed Metastatic Lung CA w/ CT revealing diffuse pulmonary nodules, Hilar Adenopathy, along with osteolytic lesions ; Smoking Hx rule out brain mets #Hypercalcemia, suspect of malignancy #Elevated alk phos due to bone mets #HTN #Bipolar/Schizo #Hx of DMII #Anemia of Chronic Dx -Stable mri brain w/wo FU biopsy Kishor Melgoza MD August 19, 2019 22:57
[2019-08-20] VITALS: BP 130/80
[2019-08-20] MEDS: Docusate 100mg cap ORAL PRN (01:41)
[2019-08-20] MEDS: Sodium Chloride 550 ML IV SCH (01:45)
[2019-08-20 04:00] VITALS: BP 147/79
[2019-08-20] MEDS: HYDROcodone/Acetamin 10/325 tab ORAL PRN ×3 (04:18→19:59)
[2019-08-20] MEDS ORDERED: LORazepam 1mg tab ORAL SCH (06:00)
[2019-08-20] MEDS: HydrALAZINE 25mg tab ORAL SCH ×3 (06:20→21:06)
[2019-08-20] MEDS: NovoLOG Insulin Flexpen SUBQ SCH ×4 (06:22→21:00)
[2019-08-20 07:21] LABS: BASOPHILS % (AUTO) 0.6 % (0.0-2.0); EOSINOPHILS % (AUTO) 1.4 % (0.0-3.0); HEMOGLOBIN 12.9 G/DL (14.2-18.0); LYMPHOCYTES % (AUTO) 26.3 % (20.0-45.0); MEAN CORPUSCULAR VOLUME 84 FL (80-99); MONOCYTES % (AUTO) 8.7 % (1.0-10.0); PLATELET COUNT 392 K/UL (150-450); RED BLOOD COUNT 4.39 M/UL (4.70-6.10); RED CELL DISTRIBUTION WIDTH 13.3 % (11.6-14.8); WHITE BLOOD COUNT 5.4 K/UL (4.8-10.8)
[2019-08-20 07:23] LABS: ANION GAP 14 mmol/L (5-15); BLOOD UREA NITROGEN 12 mg/dL (7-18); CALCIUM 10.3 MG/DL (8.5-10.1); CARBON DIOXIDE 25 MMOL/L (21-32); CHLORIDE 98 MMOL/L (98-107); CREATININE 0.8 MG/DL (0.55-1.30); PHOSPHORUS 4.9 MG/DL (2.5-4.9); POTASSIUM 3.6 MMOL/L (3.5-5.1); SODIUM 137 MMOL/L (136-145)
[2019-08-20 08:00] VITALS: BP 155/86
--- NOTE | 2019-08-20 08:28 | Hematology/Onc Progress Note ---
Assessment/Plan Assessment/Plan Assessment and Recs # Metastatic disease including multiple pulmonary lesions, mediastinal and hilar adenopathy, multiple osteolytic rib lesions and subtle low-density areas in the liver suspicious for underlying metastasis. --> tumor markers have been ordered --> ct guided biopsy ordered with Dr. Rubio, --> 08/16 ct guided biop of rib lesion performed, waiting path report --> outpatient care # Anemia of chronic disease --> hgb currently stable # Intractable vomiting --> zofran prn # Dehydration --> renal eval as needed # Dvt ppx scds for now pre-proceudre The timing of this note does not necessarily reflect the time of the patient was seen. Greatly appreciate consultation. Subjective Allergies: Coded Allergies: No Known Allergies (Unverified , 07/27/19) Subjective 08/17 s/p successful ct guided biop of rib lesion, awaiting path report, no distress 08/18 confused, no overnight events, pending consent for mri brain w/ contrast 08/19 mri brain not performed, labs reviewed, awaiting path report Objective Objective Current Medications Medications (Trade) Dose Ordered Sig/Amita Route PRN Reason Start Time Stop Time Status Last Admin Dose Admin Acetaminophen (Tylenol) 650 mg Q6H PRN ORAL For Headache 08/16/19 17:45 09/15/19 17:44 08/20/19 01:40 Acetaminophen/ Hydrocodone Bitart ([place] 10/325) 1 tab Q4H PRN ORAL For Pain 08/16/19 17:45 08/23/19 17:44 08/20/19 04:18 Amlodipine Besylate (Norvasc) 10 mg DAILY ORAL 08/16/19 20:00 09/15/19 19:59 08/19/19 10:02 Aripiprazole (Abilify) 20 mg DAILY ORAL 08/16/19 20:00 09/30/19 19:59 08/19/19 10:01 Clonidine HCl (Catapres Tab) 0.1 mg Q4H PRN ORAL SBP > 160 08/16/19 17:45 11/14/19 17:44 Dextrose (Dextrose 50%) 25 ml Q30M PRN IV Hypoglycemia 08/16/19 18:00 11/14/19 17:59 Dextrose (Dextrose 50%) 50 ml Q30M PRN IV Hypoglycemia 08/16/19 18:00 11/14/19 17:59 Divalproex Sodium (Depakote ER) 250 mg EVERY 12 HOURS ORAL 08/16/19 21:00 09/15/19 20:59 08/19/19 20:45 Docusate Sodium (Colace) 100 mg TID PRN ORAL Constipation 08/16/19 17:45 09/15/19 17:44 08/20/19 01:41 Duloxetine HCl (Cymbalta) 30 mg DAILY ORAL 08/16/19 20:00 11/14/19 19:59 08/19/19 10:01 Enoxaparin Sodium (Lovenox) 40 mg DAILY SUBQ 08/16/19 18:30 11/14/19 18:29 08/19/19 10:07 Famotidine (Pepcid I.v.) 20 mg Q12HR IVP 08/16/19 21:00 09/15/19 20:59 08/19/19 20:46 Gadobutrol (Gadavist) 7.5 mmol NOW PRN IV Radiology Procedure 08/18/19 21:00 08/22/19 20:53 Hydralazine HCl (Apresoline) 25 mg EVERY 8 HOURS ORAL 08/16/19 22:00 11/14/19 21:59 08/20/19 06:20 Insulin Aspart (NovoLOG) BEFORE MEALS AND HS SUBQ 08/16/19 21:00 11/14/19 20:59 Lorazepam (Ativan) 1 mg ONCE ORAL 08/20/19 06:00 08/20/19 23:59 08/20/19 08:06 Metoprolol Tartrate (Lopressor) 25 mg EVERY 12 HOURS ORAL 08/16/19 21:00 11/14/19 20:59 08/19/19 20:49 Morphine Sulfate (Morphine Sulfate) 2 mg Q4H PRN IVP FOR SEVERE PAIN 08/16/19 17:45 08/23/19 17:44 Sodium Chloride 550 ml @ 50 mls/hr Q11H IV 08/18/19 16:45 09/17/19 16:44 08/19/19 14:53 Last 24 Hour Vital Signs Date Time Temp Pulse Resp B/P (MAP) Pulse Ox O2 Delivery O2 Flow Rate FiO2 08/20/19 06:20 147/79 08/20/19 04:48 98.8 08/20/19 04:00 98.1 66 20 147/79 (101) 93 08/20/19 02:10 98.8 08/20/19 00:00 98.8 69 20 130/80 (97) 93 08/19/19 21:24 142/78 08/19/19 21:00 Room Air 08/19/19 20:49 72 142/78 08/19/19 20:00 98.7 79 20 135/77 (96) 93 08/19/19 16:00 97.0 63 17 131/79 (96) 95 08/19/19 14:51 136/72 08/19/19 12:00 98.6 60 18 136/72 (93) 93 08/19/19 10:02 73 145/73 08/19/19 10:01 73 145/73 08/19/19 09:00 Room Air 08/19/19 08:00 98.1 73 18 145/73 (97) 93 08/19/19 05:51 141/78 08/19/19 04:00 97.2 58 18 141/78 (99) 90 08/19/19 00:00 97.3 62 18 137/76 (96) 93 08/18/19 21:21 74 162/81 08/18/19 21:21 162/81 08/18/19 21:00 Room Air 08/18/19 20:00 98.2 74 18 162/81 (108) 94 08/18/19 16:00 98.7 77 18 139/87 (104) 95 08/18/19 14:18 147/98 08/18/19 12:00 98.3 83 20 147/98 (114) 93 08/18/19 09:00 Room Air Intake and Output 08/19/19 08/20/19 19:00 07:00 Intake Total 1450 ml Output Total 500 ml Balance 1450 ml -500 ml IV Total 550 ml Other 900 ml Output Urine Total 500 ml # Voids 3 Labs Test 08/17/19 15:45 08/18/19 04:45 08/18/19 19:40 08/19/19 08:02 Carcinoembryonic Antigen 1.8 ng/mL (0.0-4.7) CA 15-3 Antigen 16.3 U/mL (0.0-25.0) CA 19-9 Antigen 1 U/mL (0-35) CA 125 Antigen 30.8 U/mL (Not Estab.) White Blood Count 5.1 K/UL (4.8-10.8) 5.5 K/UL (4.8-10.8) Red Blood Count 4.38 M/UL (4.70-6.10) 4.80 M/UL (4.70-6.10) Hemoglobin 12.8 G/DL (14.2-18.0) 14.0 G/DL (14.2-18.0) Hematocrit 36.8 % (42.0-52.0) 40.8 % (42.0-52.0) Mean Corpuscular Volume 84 FL (80-99) 85 FL (80-99) Mean Corpuscular Hemoglobin 29.3 PG (27.0-31.0) 29.2 PG (27.0-31.0) Mean Corpuscular Hemoglobin Concent 34.8 G/DL (32.0-36.0) 34.3 G/DL (32.0-36.0) Red Cell Distribution Width 12.7 % (11.6-14.8) 13.0 % (11.6-14.8) Platelet Count 384 K/UL (150-450) 405 K/UL (150-450) Mean Platelet Volume 5.6 FL (6.5-10.1) 5.5 FL (6.5-10.1) Neutrophils (%) (Auto) 63.3 % (45.0-75.0) % (45.0-75.0) Lymphocytes (%) (Auto) 23.6 % (20.0-45.0) % (20.0-45.0) Monocytes (%) (Auto) 10.5 % (1.0-10.0) % (1.0-10.0) Eosinophils (%) (Auto) 0.8 % (0.0-3.0) % (0.0-3.0) Basophils (%) (Auto) 1.9 % (0.0-2.0) % (0.0-2.0) Sodium Level 136 MMOL/L (136-145) 138 MMOL/L (136-145) Potassium Level 4.1 MMOL/L (3.5-5.1) 4.4 MMOL/L (3.5-5.1) Chloride Level 97 MMOL/L (98-107) 98 MMOL/L (98-107) Carbon Dioxide Level 30 MMOL/L (21-32) 27 MMOL/L (21-32) Anion Gap 9 mmol/L (5-15) 13 mmol/L (5-15) Blood Urea Nitrogen 10 mg/dL (7-18) 10 mg/dL (7-18) Creatinine 0.7 MG/DL (0.55-1.30) 0.7 MG/DL (0.55-1.30) Estimat Glomerular Filtration Rate > 60 mL/min (>60) > 60 mL/min (>60) Glucose Level 95 MG/DL (74-106) 112 MG/DL (74-106) Calcium Level 10.3 MG/DL (8.5-10.1) 10.5 MG/DL (8.5-10.1) Phosphorus Level 5.0 MG/DL (2.5-4.9) 4.9 MG/DL (2.5-4.9) Magnesium Level 2.0 MG/DL (1.8-2.4) 2.0 MG/DL (1.8-2.4) Total Bilirubin 0.3 MG/DL (0.2-1.0) 0.4 MG/DL (0.2-1.0) Aspartate Amino Transf (AST/SGOT) 28 U/L (15-37) 37 U/L (15-37) Alanine Aminotransferase (ALT/SGPT) 22 U/L (12-78) 25 U/L (12-78) Alkaline Phosphatase 274 U/L (46-116) 305 U/L (46-116) Total Protein 7.8 G/DL (6.4-8.2) 8.3 G/DL (6.4-8.2) Albumin 2.8 G/DL (3.4-5.0) 3.0 G/DL (3.4-5.0) Globulin 5.0 g/dL 5.3 g/dL Albumin/Globulin Ratio 0.6 (1.0-2.7) 0.6 (1.0-2.7) Ionized Calcium (Measured) 1.20 mmol/L (1.10-1.35) Differential Total Cells Counted 100 Neutrophils % (Manual) 67 % (45-75) Lymphocytes % (Manual) 26 % (20-45) Monocytes % (Manual) 7 % (1-10) Eosinophils % (Manual) 0 % (0-3) Basophils % (Manual) 0 % (0-2) Band Neutrophils 0 % (0-8) Platelet Estimate Adequate Platelet Morphology Normal Red Blood Cell Morphology Normal Test 08/20/19 05:35 White Blood Count 5.4 K/UL (4.8-10.8) Red Blood Count 4.39 M/UL (4.70-6.10) Hemoglobin 12.9 G/DL (14.2-18.0) Hematocrit 37.0 % (42.0-52.0) Mean Corpuscular Volume 84 FL (80-99) Mean Corpuscular Hemoglobin 29.4 PG (27.0-31.0) Mean Corpuscular Hemoglobin Concent 34.9 G/DL (32.0-36.0) Red Cell Distribution Width 13.3 % (11.6-14.8) Platelet Count 392 K/UL (150-450) Mean Platelet Volume 5.5 FL (6.5-10.1) Neutrophils (%) (Auto) 63.0 % (45.0-75.0) Lymphocytes (%) (Auto) 26.3 % (20.0-45.0) Monocytes (%) (Auto) 8.7 % (1.0-10.0) Eosinophils (%) (Auto) 1.4 % (0.0-3.0) Basophils (%) (Auto) 0.6 % (0.0-2.0) Sodium Level 137 MMOL/L (136-145) Potassium Level 3.6 MMOL/L (3.5-5.1) Chloride Level 98 MMOL/L (98-107) Carbon Dioxide Level 25 MMOL/L (21-32) Anion Gap 14 mmol/L (5-15) Blood Urea Nitrogen 12 mg/dL (7-18) Creatinine 0.8 MG/DL (0.55-1.30) Estimat Glomerular Filtration Rate > 60 mL/min (>60) Glucose Level 103 MG/DL (74-106) Calcium Level 10.3 MG/DL (8.5-10.1) Ionized Calcium (Measured) 1.23 mmol/L (1.10-1.35) Phosphorus Level 4.9 MG/DL (2.5-4.9) Magnesium Level 1.8 MG/DL (1.8-2.4) Height (Feet): 6 Height (Inches): 1.00 Weight (Pounds): 180 Objective Physical Exam: Vitals: reviewed General: NAD HEENT: nc, at Neck: supple Chest: clear breath sounds bilaterally Cardiovascular: RRR, no s3, s4 Abdomen: soft, nontender, nd Extremities: no cce, normal range of motion Neuro: alert and oriented Sam Burch MD Aug 20, 2019 08:28
--- NOTE | 2019-08-20 09:21 | Nephrology Progress Note ---
Assessment/Plan Plan #Hypercalcemia likely related to malignancy #New onset lung malignancy- given CT findings #HTN #Bipolar/Schizo #Hx of DMII #Anemia of Chronic Dx -Stable - DC IVF - monitor free calcium - check PTH/vitamin D - continue amlodipine 10mg daily - add hydrallazine 25g TID - monitor i&Os - avoid nephrotoxins - check mag, amie, phs daily Time spent 70 min, greater than 35 min on care coordination and counseling Subjective ROS Limited/Unobtainable: No Constitutional: Denies: no symptoms, chills, diaphoresis, fever, malaise, weakness, other HEENT: Denies: no symptoms, eye pain, blurred vision, tearing, double vision, ear pain, ear discharge, nose pain, nose congestion, throat pain, throat swelling, mouth pain, mouth swelling, other Genitourinary: Denies: no symptoms, burning, discharge, frequency, flank pain, hematuria, incontinence, pain, urgency, other Neurologic/Psychiatric: Denies: no symptoms, anxiety, depressed, emotional problems, headache, numbness, paresthesia, pre-existing deficit, seizure, tingling, tremors, weakness, other Subjective notes some pain at the biopsy site calcium 10.3 free amie 1.23 Objective Objective Last 24 Hour Vital Signs Date Time Temp Pulse Resp B/P (MAP) Pulse Ox O2 Delivery O2 Flow Rate FiO2 08/20/19 06:20 147/79 08/20/19 04:48 98.8 08/20/19 04:00 98.1 66 20 147/79 (101) 93 08/20/19 02:10 98.8 08/20/19 00:00 98.8 69 20 130/80 (97) 93 08/19/19 21:24 142/78 08/19/19 21:00 Room Air 08/19/19 20:49 72 142/78 08/19/19 20:00 98.7 79 20 135/77 (96) 93 08/19/19 16:00 97.0 63 17 131/79 (96) 95 08/19/19 14:51 136/72 08/19/19 12:00 98.6 60 18 136/72 (93) 93 08/19/19 10:02 73 145/73 08/19/19 10:01 73 145/73 Intake and Output 08/19/19 08/20/19 18:59 06:59 Intake Total 1500 ml Output Total 500 ml Balance 1500 ml -500 ml IV Total 600 ml Other 900 ml Output Urine Total 500 ml # Voids 3 Laboratory Tests 08/20/19 05:35: White Blood Count 5.4, Red Blood Count 4.39L, Hemoglobin 12.9L, Hematocrit 37.0L , Mean Corpuscular Volume 84, Mean Corpuscular Hemoglobin 29.4, Mean Corpuscular Hemoglobin Concent 34.9, Red Cell Distribution Width 13.3, Platelet Count 392, Mean Platelet Volume 5.5L, Neutrophils (%) (Auto) 63.0, Lymphocytes ( %) (Auto) 26.3, Monocytes (%) (Auto) 8.7, Eosinophils (%) (Auto) 1.4, Basophils (%) (Auto) 0.6, Sodium Level 137, Potassium Level 3.6, Chloride Level 98, Carbon Dioxide Level 25, Anion Gap 14, Blood Urea Nitrogen 12, Creatinine 0.8, Estimat Glomerular Filtration Rate > 60, Glucose Level 103, Calcium Level 10.3H , Ionized Calcium (Measured) 1.23, Phosphorus Level 4.9, Magnesium Level 1.8 Height (Feet): 6 Height (Inches): 1.00 Weight (Pounds): 180 Deisy Steel M.D. Aug 20, 2019 09:21
[2019-08-20] MEDS: Depakote ER 250mg tab ORAL SCH ×2 (10:00→21:07)
[2019-08-20] MEDS: DULoxetine 30mg cap ORAL SCH (10:00)
[2019-08-20] MEDS: ARIPiprazole 10mg tab ORAL SCH (10:01)
[2019-08-20] MEDS: Enoxaparin 40mg Inj SUBQ SCH (10:09)
--- NOTE | 2019-08-20 10:28 | Pulmonology Progress Note ---
Subjective ROS Limited/Unobtainable: No Interval Events: None new' s/p lung biopsy HEENT: Repors: no symptoms Respiratory: Reports: no symptoms Gastrointestinal/Abdominal: Reports: no symptoms Allergies: Coded Allergies: No Known Allergies (Unverified , 07/27/19) Objective Last 24 Hour Vital Signs Date Time Temp Pulse Resp B/P (MAP) Pulse Ox O2 Delivery O2 Flow Rate FiO2 08/20/19 10:01 66 147/79 08/20/19 10:00 66 147/79 08/20/19 06:20 147/79 08/20/19 04:48 98.8 08/20/19 04:00 98.1 66 20 147/79 (101) 93 08/20/19 02:10 98.8 08/20/19 00:00 98.8 69 20 130/80 (97) 93 08/19/19 21:24 142/78 08/19/19 21:00 Room Air 08/19/19 20:49 72 142/78 08/19/19 20:00 98.7 79 20 135/77 (96) 93 08/19/19 16:00 97.0 63 17 131/79 (96) 95 08/19/19 14:51 136/72 08/19/19 12:00 98.6 60 18 136/72 (93) 93 Intake and Output 08/19/19 08/20/19 19:00 07:00 Intake Total 1450 ml Output Total 500 ml Balance 1450 ml -500 ml IV Total 550 ml Other 900 ml Output Urine Total 500 ml # Voids 3 General Appearance: no acute distress Respiratory: chest wall non-tender Cardiovascular: normal peripheral pulses Laboratory Tests 08/20/19 05:35: White Blood Count 5.4, Red Blood Count 4.39L, Hemoglobin 12.9L, Hematocrit 37.0L , Mean Corpuscular Volume 84, Mean Corpuscular Hemoglobin 29.4, Mean Corpuscular Hemoglobin Concent 34.9, Red Cell Distribution Width 13.3, Platelet Count 392, Mean Platelet Volume 5.5L, Neutrophils (%) (Auto) 63.0, Lymphocytes ( %) (Auto) 26.3, Monocytes (%) (Auto) 8.7, Eosinophils (%) (Auto) 1.4, Basophils (%) (Auto) 0.6, Sodium Level 137, Potassium Level 3.6, Chloride Level 98, Carbon Dioxide Level 25, Anion Gap 14, Blood Urea Nitrogen 12, Creatinine 0.8, Estimat Glomerular Filtration Rate > 60, Glucose Level 103, Calcium Level 10.3H , Ionized Calcium (Measured) 1.23, Phosphorus Level 4.9, Magnesium Level 1.8 Current Medications Medications (Trade) Dose Ordered Sig/Amita Route PRN Reason Start Time Stop Time Status Last Admin Dose Admin Acetaminophen (Tylenol) 650 mg Q6H PRN ORAL For Headache 08/16/19 17:45 09/15/19 17:44 08/20/19 01:40 Acetaminophen/ Hydrocodone Bitart ([place] 10/325) 1 tab Q4H PRN ORAL For Pain 08/16/19 17:45 08/23/19 17:44 08/20/19 04:18 Amlodipine Besylate (Norvasc) 10 mg DAILY ORAL 08/16/19 20:00 09/15/19 19:59 08/20/19 10:01 Aripiprazole (Abilify) 20 mg DAILY ORAL 08/16/19 20:00 09/30/19 19:59 08/20/19 10:01 Clonidine HCl (Catapres Tab) 0.1 mg Q4H PRN ORAL SBP > 160 08/16/19 17:45 11/14/19 17:44 Dextrose (Dextrose 50%) 25 ml Q30M PRN IV Hypoglycemia 08/16/19 18:00 11/14/19 17:59 Dextrose (Dextrose 50%) 50 ml Q30M PRN IV Hypoglycemia 08/16/19 18:00 11/14/19 17:59 Divalproex Sodium (Depakote ER) 250 mg EVERY 12 HOURS ORAL 08/16/19 21:00 09/15/19 20:59 08/20/19 10:00 Docusate Sodium (Colace) 100 mg TID PRN ORAL Constipation 08/16/19 17:45 09/15/19 17:44 08/20/19 01:41 Duloxetine HCl (Cymbalta) 30 mg DAILY ORAL 08/16/19 20:00 11/14/19 19:59 08/20/19 10:00 Enoxaparin Sodium (Lovenox) 40 mg DAILY SUBQ 08/16/19 18:30 11/14/19 18:29 08/20/19 10:09 Famotidine (Pepcid I.v.) 20 mg Q12HR IVP 08/16/19 21:00 09/15/19 20:59 08/20/19 10:00 Gadobutrol (Gadavist) 7.5 mmol NOW PRN IV Radiology Procedure 08/18/19 21:00 08/22/19 20:53 Hydralazine HCl (Apresoline) 25 mg EVERY 8 HOURS ORAL 08/16/19 22:00 11/14/19 21:59 08/20/19 06:20 Insulin Aspart (NovoLOG) BEFORE MEALS AND HS SUBQ 08/16/19 21:00 11/14/19 20:59 Lorazepam (Ativan) 1 mg ONCE ORAL 08/20/19 06:00 08/20/19 23:59 08/20/19 08:06 Metoprolol Tartrate (Lopressor) 25 mg EVERY 12 HOURS ORAL 08/16/19 21:00 11/14/19 20:59 08/20/19 10:00 Morphine Sulfate (Morphine Sulfate) 2 mg Q4H PRN IVP FOR SEVERE PAIN 08/16/19 17:45 08/23/19 17:44 Assessment/Plan Assessment/Plan IMPRESSION: 1. Metastatic carcinoma, biopsy results pending. 2. Hypertension. 3. Chronic back pain. 4. Bipolar disorder. 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 Benita Jama Omar Syed MD Aug 20, 2019 10:28
[2019-08-20 12:00] VITALS: BP 157/80
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
[2019-08-20 16:00] VITALS: BP 148/78
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
[2019-08-20 20:00] VITALS: BP 148/82
[2019-08-20] MEDS: Morphine Sulfate 2mg/ml Inj(IV/IM USE ONLY) IVP PRN (21:07)
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
[2019-08-21] VITALS: BP 137/78
[2019-08-21 04:00] VITALS: BP 134/80
[2019-08-21] MEDS: HydrALAZINE 25mg tab ORAL SCH ×3 (05:52→21:41)
[2019-08-21] MEDS: NovoLOG Insulin Flexpen SUBQ SCH ×4 (06:30→21:00)
[2019-08-21] MEDS: HYDROcodone/Acetamin 10/325 tab ORAL PRN ×2 (07:50→17:44)
[2019-08-21 08:00] VITALS: BP 151/76
[2019-08-21] MEDS: Enoxaparin 40mg Inj SUBQ SCH (08:53)
[2019-08-21] MEDS: ARIPiprazole 10mg tab ORAL SCH (08:53)
[2019-08-21] MEDS: Depakote ER 250mg tab ORAL SCH ×2 (08:54→21:40)
[2019-08-21] MEDS: DULoxetine 30mg cap ORAL SCH (08:54)
--- NOTE | 2019-08-21 10:02 | Nephrology Progress Note ---
Assessment/Plan Plan #Hypercalcemia likely related to malignancy #New onset lung malignancy- given CT findings #HTN #Bipolar/Schizo #Hx of DMII #Anemia of Chronic Dx -Stable - will give pamidronate 60 x1 - monitor free calcium - PTH maciel low - f/u PTHrp - continue amlodipine 10mg daily - add metop 50 BID - monitor i&Os - avoid nephrotoxins - check mag, amie, phs daily Time spent 70 min, greater than 35 min on care coordination and counseling Subjective ROS Limited/Unobtainable: No Constitutional: Denies: no symptoms, chills, diaphoresis, fever, malaise, weakness, other HEENT: Denies: no symptoms, eye pain, blurred vision, tearing, double vision, ear pain, ear discharge, nose pain, nose congestion, throat pain, throat swelling, mouth pain, mouth swelling, other Genitourinary: Denies: no symptoms, burning, discharge, frequency, flank pain, hematuria, incontinence, pain, urgency, other Neurologic/Psychiatric: Denies: no symptoms, anxiety, depressed, emotional problems, headache, numbness, paresthesia, pre-existing deficit, seizure, tingling, tremors, weakness, other Subjective BP uptrending will increase metop to 50 BID calcium 11 Objective Objective Last 24 Hour Vital Signs Date Time Temp Pulse Resp B/P (MAP) Pulse Ox O2 Delivery O2 Flow Rate FiO2 08/21/19 09:00 Room Air 08/21/19 08:53 82 151/76 08/21/19 08:53 82 151/76 08/21/19 08:00 98.2 82 18 151/76 (101) 91 08/21/19 05:52 134/80 08/21/19 04:00 98.4 77 16 134/80 (98) 97 08/21/19 00:00 98.2 81 18 137/78 (97) 97 08/20/19 21:06 86 148/82 08/20/19 21:06 148/82 08/20/19 21:00 Room Air 08/20/19 20:00 98.1 86 16 148/82 (104) 97 08/20/19 16:00 97.2 69 19 148/78 (101) 97 08/20/19 13:59 98.2 08/20/19 13:30 157/80 08/20/19 12:00 98.2 74 19 157/80 (105) 97 08/20/19 11:03 Room Air 08/20/19 10:01 66 147/79 08/20/19 10:00 66 147/79 Intake and Output 08/20/19 08/21/19 19:00 07:00 Intake Total 960 ml 360 ml Balance 960 ml 360 ml Intake Oral 960 ml 360 ml # Voids 5 3 # Bowel Movements 1 Height (Feet): 6 Height (Inches): 1.00 Weight (Pounds): 180 General Appearance: WD/WN, no apparent distress EENT: PERRL/EOMI, normal ENT inspection Neck: non-tender, normal alignment Cardiovascular: normal peripheral pulses, normal rate, regular rhythm Respiratory/Chest: chest wall non-tender, lungs clear Abdomen: normal bowel sounds, non tender, soft Extremities: normal range of motion Neurologic: alert, oriented x 3, responsive Deisy Steel M.D. Aug 21, 2019 10:02
[2019-08-21 10:50] LABS: ANION GAP 13 mmol/L (5-15); BLOOD UREA NITROGEN 13 mg/dL (7-18); CARBON DIOXIDE 28 MMOL/L (21-32); CHLORIDE 95 MMOL/L (98-107); CREATININE 0.8 MG/DL (0.55-1.30); POTASSIUM 3.8 MMOL/L (3.5-5.1); SODIUM 136 MMOL/L (136-145)
--- NOTE | 2019-08-21 10:59 | Pulmonology Progress Note ---
Subjective ROS Limited/Unobtainable: No Interval Events: None new' s/p lung biopsy HEENT: Repors: no symptoms Respiratory: Reports: no symptoms Gastrointestinal/Abdominal: Reports: no symptoms Allergies: Coded Allergies: No Known Allergies (Unverified , 07/27/19) Objective Last 24 Hour Vital Signs Date Time Temp Pulse Resp B/P (MAP) Pulse Ox O2 Delivery O2 Flow Rate FiO2 08/21/19 09:00 Room Air 08/21/19 08:53 82 151/76 08/21/19 08:53 82 151/76 08/21/19 08:00 98.2 82 18 151/76 (101) 91 08/21/19 05:52 134/80 08/21/19 04:00 98.4 77 16 134/80 (98) 97 08/21/19 00:00 98.2 81 18 137/78 (97) 97 08/20/19 21:06 86 148/82 08/20/19 21:06 148/82 08/20/19 21:00 Room Air 08/20/19 20:00 98.1 86 16 148/82 (104) 97 08/20/19 16:00 97.2 69 19 148/78 (101) 97 08/20/19 13:59 98.2 08/20/19 13:30 157/80 08/20/19 12:00 98.2 74 19 157/80 (105) 97 08/20/19 11:03 Room Air Intake and Output 08/20/19 08/21/19 19:00 07:00 Intake Total 960 ml 360 ml Balance 960 ml 360 ml Intake Oral 960 ml 360 ml # Voids 5 3 # Bowel Movements 1 General Appearance: no acute distress Respiratory: chest wall non-tender Cardiovascular: normal peripheral pulses Laboratory Tests 08/21/19 10:20: Sodium Level 136, Potassium Level 3.8, Chloride Level 95L, Carbon Dioxide Level 28, Anion Gap 13, Blood Urea Nitrogen 13, Creatinine 0.8, Estimat Glomerular Filtration Rate > 60, Glucose Level 112H, Calcium Level 11.0H Current Medications Medications (Trade) Dose Ordered Sig/Amita Route PRN Reason Start Time Stop Time Status Last Admin Dose Admin Acetaminophen (Tylenol) 650 mg Q6H PRN ORAL For Headache 08/16/19 17:45 09/15/19 17:44 08/21/19 02:42 Acetaminophen/ Hydrocodone Bitart ([place] 10/325) 1 tab Q4H PRN ORAL For Pain 08/16/19 17:45 08/23/19 17:44 08/21/19 07:50 Amlodipine Besylate (Norvasc) 10 mg DAILY ORAL 08/16/19 20:00 09/15/19 19:59 08/21/19 08:53 Aripiprazole (Abilify) 20 mg DAILY ORAL 08/16/19 20:00 09/30/19 19:59 08/21/19 08:53 Clonidine HCl (Catapres Tab) 0.1 mg Q4H PRN ORAL SBP > 160 08/16/19 17:45 11/14/19 17:44 Dextrose (Dextrose 50%) 25 ml Q30M PRN IV Hypoglycemia 08/16/19 18:00 11/14/19 17:59 Dextrose (Dextrose 50%) 50 ml Q30M PRN IV Hypoglycemia 08/16/19 18:00 11/14/19 17:59 Divalproex Sodium (Depakote ER) 250 mg EVERY 12 HOURS ORAL 08/16/19 21:00 09/15/19 20:59 08/21/19 08:54 Docusate Sodium (Colace) 100 mg TID PRN ORAL Constipation 08/16/19 17:45 09/15/19 17:44 08/20/19 01:41 Duloxetine HCl (Cymbalta) 30 mg DAILY ORAL 08/16/19 20:00 11/14/19 19:59 08/21/19 08:54 Enoxaparin Sodium (Lovenox) 40 mg DAILY SUBQ 08/16/19 18:30 11/14/19 18:29 08/21/19 08:53 Famotidine (Pepcid I.v.) 20 mg Q12HR IVP 08/16/19 21:00 09/15/19 20:59 08/21/19 08:53 Gadobutrol (Gadavist) 7.5 mmol NOW PRN IV Radiology Procedure 08/18/19 21:00 08/22/19 20:53 Hydralazine HCl (Apresoline) 25 mg EVERY 8 HOURS ORAL 08/16/19 22:00 11/14/19 21:59 08/21/19 05:52 Insulin Aspart (NovoLOG) BEFORE MEALS AND HS SUBQ 08/16/19 21:00 11/14/19 20:59 Metoprolol Tartrate (Lopressor) 50 mg EVERY 12 HOURS ORAL 08/21/19 21:00 11/14/19 20:59 Morphine Sulfate (Morphine Sulfate) 2 mg Q4H PRN IVP FOR SEVERE PAIN 08/16/19 17:45 08/23/19 17:44 08/20/19 21:07 Assessment/Plan Assessment/Plan IMPRESSION: 1. Metastatic carcinoma, biopsy results pending. 2. Hypertension. 3. Chronic back pain. 4. Bipolar disorder. 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 Hypercalcemic; will discuss treatment Benita Jama Omar Syed MD Aug 21, 2019 10:59
[2019-08-21 12:00] VITALS: BP 134/77
--- NOTE | 2019-08-21 12:30 | Hematology/Onc Progress Note ---
Assessment/Plan Assessment/Plan Assessment and Recs # Metastatic disease including multiple pulmonary lesions, mediastinal and hilar adenopathy, multiple osteolytic rib lesions and subtle low-density areas in the liver suspicious for underlying metastasis. --> tumor markers have been ordered-->negative results --> ct guided biopsy ordered with Dr. Rubio, --> 08/16 ct guided biop of rib lesion performed, waiting path report --> after path is back may discuss any potential treatment options --> outpatient care # Anemia of chronic disease --> hgb trend 12.5 --> hgb currently stable # Intractable vomiting --> zofran prn # Dehydration --> renal eval as needed # Dvt ppx scds for now pre-proceudre The timing of this note does not necessarily reflect the time of the patient was seen. Greatly appreciate consultation. Subjective HEENT: Denies: no symptoms, eye pain, blurred vision, tearing, double vision, ear pain, ear discharge, nose pain, nose congestion, throat pain, throat swelling, mouth pain, mouth swelling, other Respiratory: Denies: no symptoms, cough, shortness of breath, SOB with excertion, SOB at rest, sputum, wheezing, other Gastrointestinal/Abdominal: Denies: no symptoms, abdomen distended, abdominal pain, black stools, tarry stools, blood in stool, constipated, diarrhea, difficulty swallowing, nausea, poor appetite, poor fluid intake, rectal bleeding , vomiting, other Genitourinary: Denies: no symptoms, burning, discharge, frequency, flank pain, hematuria, incontinence, pain, urgency, other Neurologic/Psychiatric: Denies: no symptoms, anxiety, depressed, emotional problems, headache, numbness, paresthesia, pre-existing deficit, seizure, tingling, tremors, weakness, other Endocrine: Denies: no symptoms, excessive sweating, flushing, intolerance to cold, intolerance to heat, increased hunger, increased thirst, increased urine, unexplained weight gain, unexplained weight loss, other Hematologic/Lymphatic: Denies: no symptoms, anemia, easy bleeding, easy bruising, adenopathy, other Allergies: Coded Allergies: No Known Allergies (Unverified , 07/27/19) Subjective 08/17 s/p successful ct guided biop of rib lesion, awaiting path report, no distress 08/18 confused, no overnight events, pending consent for mri brain w/ contrast 08/19 mri brain not performed, labs reviewed, awaiting path report 08/20 no major changes, no bleeding or chills, labs reviewed Objective Objective Current Medications Medications (Trade) Dose Ordered Sig/Amita Route PRN Reason Start Time Stop Time Status Last Admin Dose Admin Acetaminophen (Tylenol) 650 mg Q6H PRN ORAL For Headache 08/16/19 17:45 09/15/19 17:44 08/21/19 02:42 Acetaminophen/ Hydrocodone Bitart ([place] 10/325) 1 tab Q4H PRN ORAL For Pain 08/16/19 17:45 08/23/19 17:44 08/21/19 07:50 Amlodipine Besylate (Norvasc) 10 mg DAILY ORAL 08/16/19 20:00 09/15/19 19:59 08/21/19 08:53 Aripiprazole (Abilify) 20 mg DAILY ORAL 08/16/19 20:00 09/30/19 19:59 08/21/19 08:53 Clonidine HCl (Catapres Tab) 0.1 mg Q4H PRN ORAL SBP > 160 08/16/19 17:45 11/14/19 17:44 Dextrose (Dextrose 50%) 25 ml Q30M PRN IV Hypoglycemia 08/16/19 18:00 11/14/19 17:59 Dextrose (Dextrose 50%) 50 ml Q30M PRN IV Hypoglycemia 08/16/19 18:00 11/14/19 17:59 Divalproex Sodium (Depakote ER) 250 mg EVERY 12 HOURS ORAL 08/16/19 21:00 09/15/19 20:59 08/21/19 08:54 Docusate Sodium (Colace) 100 mg TID PRN ORAL Constipation 08/16/19 17:45 09/15/19 17:44 08/20/19 01:41 Duloxetine HCl (Cymbalta) 30 mg DAILY ORAL 08/16/19 20:00 11/14/19 19:59 08/21/19 08:54 Enoxaparin Sodium (Lovenox) 40 mg DAILY SUBQ 08/16/19 18:30 11/14/19 18:29 08/21/19 08:53 Famotidine (Pepcid I.v.) 20 mg Q12HR IVP 08/16/19 21:00 09/15/19 20:59 08/21/19 08:53 Gadobutrol (Gadavist) 7.5 mmol NOW PRN IV Radiology Procedure 08/18/19 21:00 08/22/19 20:53 Hydralazine HCl (Apresoline) 25 mg EVERY 8 HOURS ORAL 08/16/19 22:00 11/14/19 21:59 08/21/19 05:52 Insulin Aspart (NovoLOG) BEFORE MEALS AND HS SUBQ 08/16/19 21:00 11/14/19 20:59 Metoprolol Tartrate (Lopressor) 50 mg EVERY 12 HOURS ORAL 08/21/19 21:00 11/14/19 20:59 Morphine Sulfate (Morphine Sulfate) 2 mg Q4H PRN IVP FOR SEVERE PAIN 08/16/19 17:45 08/23/19 17:44 08/20/19 21:07 Pamidronate Disodium 60 mg/ Sodium Chloride 550 ml @ 137.5 mls/ hr ONCE ONCE IVPB 08/21/19 13:00 08/21/19 16:59 Last 24 Hour Vital Signs Date Time Temp Pulse Resp B/P (MAP) Pulse Ox O2 Delivery O2 Flow Rate FiO2 08/21/19 09:00 Room Air 08/21/19 08:53 82 151/76 08/21/19 08:53 82 151/76 08/21/19 08:00 98.2 82 18 151/76 (101) 91 08/21/19 05:52 134/80 08/21/19 04:00 98.4 77 16 134/80 (98) 97 08/21/19 00:00 98.2 81 18 137/78 (97) 97 08/20/19 21:06 86 148/82 08/20/19 21:06 148/82 08/20/19 21:00 Room Air 08/20/19 20:00 98.1 86 16 148/82 (104) 97 08/20/19 16:00 97.2 69 19 148/78 (101) 97 08/20/19 13:59 98.2 08/20/19 13:30 157/80 08/20/19 12:00 98.2 74 19 157/80 (105) 97 08/20/19 11:03 Room Air 08/20/19 10:01 66 147/79 08/20/19 10:00 66 147/79 08/20/19 08:00 97.1 98 19 155/86 (109) 93 08/20/19 06:20 147/79 08/20/19 04:00 98.1 66 20 147/79 (101) 93 08/20/19 02:10 98.8 08/20/19 00:00 98.8 69 20 130/80 (97) 93 08/19/19 21:24 142/78 08/19/19 21:00 Room Air 08/19/19 20:49 72 142/78 08/19/19 20:00 98.7 79 20 135/77 (96) 93 08/19/19 16:00 97.0 63 17 131/79 (96) 95 08/19/19 14:51 136/72 Intake and Output 08/20/19 08/21/19 19:00 07:00 Intake Total 960 ml 360 ml Balance 960 ml 360 ml Intake Oral 960 ml 360 ml # Voids 5 3 # Bowel Movements 1 Labs Test 08/18/19 19:40 08/19/19 08:02 08/20/19 05:35 08/21/19 10:20 Calcium (Send out) 10.3 mg/dL (8.7-10.2) Ionized Calcium (Measured) 1.20 mmol/L (1.10-1.35) 1.23 mmol/L (1.10-1.35) PTH (Intact) Whole Molecule Comment (.) Parathyroid Hormone (Intact) 9 pg/mL (15-65) White Blood Count 5.5 K/UL (4.8-10.8) 5.4 K/UL (4.8-10.8) Red Blood Count 4.80 M/UL (4.70-6.10) 4.39 M/UL (4.70-6.10) Hemoglobin 14.0 G/DL (14.2-18.0) 12.9 G/DL (14.2-18.0) Hematocrit 40.8 % (42.0-52.0) 37.0 % (42.0-52.0) Mean Corpuscular Volume 85 FL (80-99) 84 FL (80-99) Mean Corpuscular Hemoglobin 29.2 PG (27.0-31.0) 29.4 PG (27.0-31.0) Mean Corpuscular Hemoglobin Concent 34.3 G/DL (32.0-36.0) 34.9 G/DL (32.0-36.0) Red Cell Distribution Width 13.0 % (11.6-14.8) 13.3 % (11.6-14.8) Platelet Count 405 K/UL (150-450) 392 K/UL (150-450) Mean Platelet Volume 5.5 FL (6.5-10.1) 5.5 FL (6.5-10.1) Neutrophils (%) (Auto) % (45.0-75.0) 63.0 % (45.0-75.0) Lymphocytes (%) (Auto) % (20.0-45.0) 26.3 % (20.0-45.0) Monocytes (%) (Auto) % (1.0-10.0) 8.7 % (1.0-10.0) Eosinophils (%) (Auto) % (0.0-3.0) 1.4 % (0.0-3.0) Basophils (%) (Auto) % (0.0-2.0) 0.6 % (0.0-2.0) Differential Total Cells Counted 100 Neutrophils % (Manual) 67 % (45-75) Lymphocytes % (Manual) 26 % (20-45) Monocytes % (Manual) 7 % (1-10) Eosinophils % (Manual) 0 % (0-3) Basophils % (Manual) 0 % (0-2) Band Neutrophils 0 % (0-8) Platelet Estimate Adequate Platelet Morphology Normal Red Blood Cell Morphology Normal Sodium Level 138 MMOL/L (136-145) 137 MMOL/L (136-145) 136 MMOL/L (136-145) Potassium Level 4.4 MMOL/L (3.5-5.1) 3.6 MMOL/L (3.5-5.1) 3.8 MMOL/L (3.5-5.1) Chloride Level 98 MMOL/L (98-107) 98 MMOL/L (98-107) 95 MMOL/L (98-107) Carbon Dioxide Level 27 MMOL/L (21-32) 25 MMOL/L (21-32) 28 MMOL/L (21-32) Anion Gap 13 mmol/L (5-15) 14 mmol/L (5-15) 13 mmol/L (5-15) Blood Urea Nitrogen 10 mg/dL (7-18) 12 mg/dL (7-18) 13 mg/dL (7-18) Creatinine 0.7 MG/DL (0.55-1.30) 0.8 MG/DL (0.55-1.30) 0.8 MG/DL (0.55-1.30) Estimat Glomerular Filtration Rate > 60 mL/min (>60) > 60 mL/min (>60) > 60 mL/min (>60) Glucose Level 112 MG/DL (74-106) 103 MG/DL (74-106) 112 MG/DL (74-106) Calcium Level 10.5 MG/DL (8.5-10.1) 10.3 MG/DL (8.5-10.1) 11.0 MG/DL (8.5-10.1) Phosphorus Level 4.9 MG/DL (2.5-4.9) 4.9 MG/DL (2.5-4.9) Magnesium Level 2.0 MG/DL (1.8-2.4) 1.8 MG/DL (1.8-2.4) Total Bilirubin 0.4 MG/DL (0.2-1.0) Aspartate Amino Transf (AST/SGOT) 37 U/L (15-37) Alanine Aminotransferase (ALT/SGPT) 25 U/L (12-78) Alkaline Phosphatase 305 U/L (46-116) Total Protein 8.3 G/DL (6.4-8.2) Albumin 3.0 G/DL (3.4-5.0) Globulin 5.3 g/dL Albumin/Globulin Ratio 0.6 (1.0-2.7) Height (Feet): 6 Height (Inches): 1.00 Weight (Pounds): 180 Objective Physical Exam: Vitals: reviewed General: NAD HEENT: nc, at Neck: supple Chest: clear breath sounds bilaterally Cardiovascular: RRR, no s3, s4 Abdomen: soft, nontender, nd Extremities: no cce, normal range of motion Neuro: alert and oriented Sam Burch MD Aug 21, 2019 12:30
[2019-08-21] MEDS ORDERED: Pamidronate Disodium Inj 60 MG in Sodium Chloride 550 ML IVPB ONE (13:00)
[2019-08-21 16:00] VITALS: BP 141/75
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
[2019-08-21 20:00] VITALS: BP 132/70
--- NOTE | 2019-08-21 20:45 | Neurology Progress Note ---
Interim History Interim History ROS Limited/Unobtainable: No Interim History no new events, mri was not possible Objective Physical Exam Last Vital Signs Date Time Temp Pulse Resp B/P (MAP) Pulse Ox O2 Delivery O2 Flow Rate FiO2 08/21/19 16:00 98.5 80 18 141/75 (97) 92 08/21/19 09:00 Room Air 08/16/19 18:30 2.0 Laboratory Tests Test 08/21/19 10:20 Sodium Level 136 MMOL/L (136-145) Potassium Level 3.8 MMOL/L (3.5-5.1) Chloride Level 95 MMOL/L (98-107) L Carbon Dioxide Level 28 MMOL/L (21-32) Anion Gap 13 mmol/L (5-15) Blood Urea Nitrogen 13 mg/dL (7-18) Creatinine 0.8 MG/DL (0.55-1.30) Estimat Glomerular Filtration Rate > 60 mL/min (>60) Glucose Level 112 MG/DL (74-106) H Calcium Level 11.0 MG/DL (8.5-10.1) H General: well developed Head: normocophalic Neck: no rigidity Neurologic Exam Objective tangential speech moves all 4 non focal Impression/Recommendations Problems: (1) Abnormal laboratory test result (2) Dehydration (3) Intractable vomiting Diagnostic Impression #Presumed Metastatic Lung CA w/ CT revealing diffuse pulmonary nodules, Hilar Adenopathy, along with osteolytic lesions ; Smoking Hx rule out brain mets #Hypercalcemia, suspect of malignancy #Elevated alk phos due to bone mets #HTN #Bipolar/Schizo #Hx of DMII #Anemia of Chronic Dx -Stable ct brain only FU biopsy Kishor Melgoza MD Aug 21, 2019 20:45
[2019-08-21] MEDS: Metoprolol Tartrate 50mg tab ORAL SCH (21:00)
[2019-08-21] MEDS: Morphine Sulfate 2mg/ml Inj(IV/IM USE ONLY) IVP PRN (21:54)
[2019-08-22] VITALS (7 sets, daily range): BP systolic 120–150; BP diastolic 64–80
[2019-08-22] MEDS: HYDROcodone/Acetamin 10/325 tab ORAL PRN ×4 (01:34→17:56)
[2019-08-22] MEDS: NovoLOG Insulin Flexpen SUBQ SCH ×4 (06:30→21:00)
[2019-08-22] MEDS: Docusate 100mg cap ORAL PRN ×2 (06:37→11:47)
[2019-08-22] MEDS: HydrALAZINE 25mg tab ORAL SCH ×3 (06:39→21:42)
[2019-08-22 06:57] LABS: ANION GAP 13 mmol/L (5-15); BLOOD UREA NITROGEN 11 mg/dL (7-18); CALCIUM 10.1 MG/DL (8.5-10.1); CARBON DIOXIDE 24 MMOL/L (21-32); CHLORIDE 96 MMOL/L (98-107); CREATININE 0.7 MG/DL (0.55-1.30); PHOSPHORUS 5.2 MG/DL (2.5-4.9); POTASSIUM 4.1 MMOL/L (3.5-5.1); SODIUM 133 MMOL/L (136-145)
[2019-08-22] MEDS: Metoprolol Tartrate 50mg tab ORAL SCH ×2 (08:32→21:40)
[2019-08-22] MEDS: ARIPiprazole 10mg tab ORAL SCH (08:32)
[2019-08-22] MEDS: Depakote ER 250mg tab ORAL SCH ×2 (08:32→21:39)
[2019-08-22] MEDS: DULoxetine 30mg cap ORAL SCH (08:32)
[2019-08-22] MEDS: Enoxaparin 40mg Inj SUBQ SCH (08:34)
--- NOTE | 2019-08-22 09:11 | Nephrology Progress Note ---
Assessment/Plan Plan #Hypercalcemia likely related to malignancy #New onset lung malignancy- given CT findings #HTN #Bipolar/Schizo #Hx of DMII #Anemia of Chronic Dx -Stable - s/p pamidronate 60 x1 - monitor free calcium - PTH maciel low - f/u PTHrp - continue amlodipine 10mg daily - add metop 50 BID - monitor i&Os - avoid nephrotoxins - check mag, amie, phs daily Time spent 40 min, greater than 20 min on care coordination and counseling Subjective ROS Limited/Unobtainable: No Constitutional: Reports: no symptoms, chills, diaphoresis, fever, malaise, weakness, other HEENT: Denies: no symptoms, eye pain, blurred vision, tearing, double vision, ear pain, ear discharge, nose pain, nose congestion, throat pain, throat swelling, mouth pain, mouth swelling, other Genitourinary: Denies: no symptoms, burning, discharge, frequency, flank pain, hematuria, incontinence, pain, urgency, other Neurologic/Psychiatric: Denies: no symptoms, anxiety, depressed, emotional problems, headache, numbness, paresthesia, pre-existing deficit, seizure, tingling, tremors, weakness, other Subjective BP stable calcium better today wants to be discharged Objective Objective Last 24 Hour Vital Signs Date Time Temp Pulse Resp B/P (MAP) Pulse Ox O2 Delivery O2 Flow Rate FiO2 08/22/19 08:33 89 134/78 08/22/19 08:32 89 134/78 08/22/19 08:00 98.9 89 20 134/78 (96) 93 08/22/19 06:39 126/64 08/22/19 06:00 98.4 66 16 126/64 (84) 93 08/22/19 00:00 97.9 72 18 134/71 (92) 95 08/21/19 21:41 132/70 08/21/19 21:00 Room Air 08/21/19 21:00 80 132/70 08/21/19 20:00 98.5 80 18 132/70 (90) 97 08/21/19 16:00 98.5 80 18 141/75 (97) 92 08/21/19 14:10 134/77 08/21/19 12:00 98.0 71 20 134/77 (96) 94 Intake and Output 08/21/19 08/22/19 19:00 07:00 Intake Total 400 ml 240 ml Output Total 600 ml 700 ml Balance -200 ml -460 ml Intake Oral 400 ml 240 ml Output Urine Total 600 ml 700 ml # Voids 3 Laboratory Tests 08/21/19 10:20: Sodium Level 136, Potassium Level 3.8, Chloride Level 95L, Carbon Dioxide Level 28, Anion Gap 13, Blood Urea Nitrogen 13, Creatinine 0.8, Estimat Glomerular Filtration Rate > 60, Glucose Level 112H, Calcium Level 11.0H 08/22/19 05:59: Sodium Level 133L, Potassium Level 4.1, Chloride Level 96L, Carbon Dioxide Level 24, Anion Gap 13, Blood Urea Nitrogen 11, Creatinine 0.7, Estimat Glomerular Filtration Rate > 60, Glucose Level 98, Calcium Level 10.1, Ionized Calcium (Measured) 1.23, Phosphorus Level 5.2H, Magnesium Level 1.9 Height (Feet): 6 Height (Inches): 1.00 Weight (Pounds): 173 General Appearance: WD/WN, no apparent distress EENT: PERRL/EOMI, normal ENT inspection Neck: non-tender, normal alignment Cardiovascular: normal peripheral pulses Respiratory/Chest: lungs clear Abdomen: normal bowel sounds, non tender, soft Extremities: normal range of motion, non-tender Neurologic: alert, oriented x 3, responsive Deisy Steel M.D. Aug 22, 2019 09:11
--- NOTE | 2019-08-22 10:25 | Pulmonology Progress Note ---
Subjective ROS Limited/Unobtainable: No Interval Events: None new' s/p lung biopsy HEENT: Repors: no symptoms Respiratory: Reports: no symptoms Gastrointestinal/Abdominal: Reports: no symptoms Allergies: Coded Allergies: No Known Allergies (Unverified , 07/27/19) Objective Last 24 Hour Vital Signs Date Time Temp Pulse Resp B/P (MAP) Pulse Ox O2 Delivery O2 Flow Rate FiO2 08/22/19 09:00 Room Air 08/22/19 08:33 89 134/78 08/22/19 08:32 89 134/78 08/22/19 08:00 98.9 89 20 134/78 (96) 93 08/22/19 06:39 126/64 08/22/19 06:00 98.4 66 16 126/64 (84) 93 08/22/19 00:00 97.9 72 18 134/71 (92) 95 08/21/19 21:41 132/70 08/21/19 21:00 Room Air 08/21/19 21:00 80 132/70 08/21/19 20:00 98.5 80 18 132/70 (90) 97 08/21/19 16:00 98.5 80 18 141/75 (97) 92 08/21/19 14:10 134/77 08/21/19 12:00 98.0 71 20 134/77 (96) 94 Intake and Output 08/21/19 08/22/19 19:00 07:00 Intake Total 400 ml 240 ml Output Total 600 ml 700 ml Balance -200 ml -460 ml Intake Oral 400 ml 240 ml Output Urine Total 600 ml 700 ml # Voids 3 General Appearance: no acute distress Respiratory: chest wall non-tender Cardiovascular: normal peripheral pulses Laboratory Tests 08/22/19 05:59: Sodium Level 133L, Potassium Level 4.1, Chloride Level 96L, Carbon Dioxide Level 24, Anion Gap 13, Blood Urea Nitrogen 11, Creatinine 0.7, Estimat Glomerular Filtration Rate > 60, Glucose Level 98, Calcium Level 10.1, Ionized Calcium (Measured) 1.23, Phosphorus Level 5.2H, Magnesium Level 1.9 Current Medications Medications (Trade) Dose Ordered Sig/Amita Route PRN Reason Start Time Stop Time Status Last Admin Dose Admin Acetaminophen (Tylenol) 650 mg Q6H PRN ORAL For Headache 08/16/19 17:45 09/15/19 17:44 6/2/20 02:42 Acetaminophen/ Hydrocodone Bitart ([place] 10/325) 1 tab Q4H PRN ORAL For Pain 08/16/19 17:45 08/23/19 17:44 08/22/19 06:37 Amlodipine Besylate (Norvasc) 10 mg DAILY ORAL 08/16/19 20:00 09/15/19 19:59 08/22/19 08:33 Aripiprazole (Abilify) 20 mg DAILY ORAL 08/16/19 20:00 09/30/19 19:59 08/22/19 08:32 Clonidine HCl (Catapres Tab) 0.1 mg Q4H PRN ORAL SBP > 160 08/16/19 17:45 11/14/19 17:44 Dextrose (Dextrose 50%) 25 ml Q30M PRN IV Hypoglycemia 08/16/19 18:00 11/14/19 17:59 Dextrose (Dextrose 50%) 50 ml Q30M PRN IV Hypoglycemia 08/16/19 18:00 11/14/19 17:59 Divalproex Sodium (Depakote ER) 250 mg EVERY 12 HOURS ORAL 08/16/19 21:00 09/15/19 20:59 08/22/19 08:32 Docusate Sodium (Colace) 100 mg TID PRN ORAL Constipation 08/16/19 17:45 09/15/19 17:44 08/22/19 06:37 Duloxetine HCl (Cymbalta) 30 mg DAILY ORAL 08/16/19 20:00 11/14/19 19:59 08/22/19 08:32 Enoxaparin Sodium (Lovenox) 40 mg DAILY SUBQ 08/16/19 18:30 11/14/19 18:29 08/22/19 08:34 Famotidine (Pepcid I.v.) 20 mg Q12HR IVP 08/16/19 21:00 09/15/19 20:59 08/22/19 08:33 Gadobutrol (Gadavist) 7.5 mmol NOW PRN IV Radiology Procedure 08/18/19 21:00 08/22/19 20:53 Hydralazine HCl (Apresoline) 25 mg EVERY 8 HOURS ORAL 08/16/19 22:00 11/14/19 21:59 08/22/19 06:39 Insulin Aspart (NovoLOG) BEFORE MEALS AND HS SUBQ 08/16/19 21:00 11/14/19 20:59 Metoprolol Tartrate (Lopressor) 50 mg EVERY 12 HOURS ORAL 08/21/19 21:00 11/14/19 20:59 08/22/19 08:32 Morphine Sulfate (Morphine Sulfate) 2 mg Q4H PRN IVP FOR SEVERE PAIN 08/16/19 17:45 08/23/19 17:44 08/21/19 21:54 Assessment/Plan Assessment/Plan IMPRESSION: 1. Metastatic carcinoma, biopsy results pending. 2. Hypertension. 3. Chronic back pain. 4. Bipolar disorder. DISCUSSION: S/p lung biopsy I will follow as educational manager. Hypercalcemic; corrected post treatment now OK to dc and arrange outpt followup Benita Jama Omar Syed MD Aug 22, 2019 10:25
--- NOTE | 2019-08-22 11:56 | Hematology/Onc Progress Note ---
Assessment/Plan Assessment/Plan Assessment and Recs # Metastatic disease including multiple pulmonary lesions, mediastinal and hilar adenopathy, multiple osteolytic rib lesions and subtle low-density areas in the liver suspicious for underlying metastasis. --> tumor markers have been ordered-->negative results --> ct guided biopsy ordered with Dr. Rubio, --> 08/16 ct guided biop of rib lesion performed, waiting path report --> after path is back may discuss any potential treatment options --> outpatient care # Anemia of chronic disease --> hgb trend 12.5 --> hgb currently stable # Intractable vomiting --> zofran prn # Dehydration --> renal eval as needed # Dvt ppx scds for now pre-proceudre The timing of this note does not necessarily reflect the time of the patient was seen. Greatly appreciate consultation. Subjective Allergies: Coded Allergies: No Known Allergies (Unverified , 07/27/19) Subjective 08/17 s/p successful ct guided biop of rib lesion, awaiting path report, no distress 08/18 confused, no overnight events, pending consent for mri brain w/ contrast 08/19 mri brain not performed, labs reviewed, awaiting path report 08/20 no major changes, no bleeding or chills, labs reviewed 08/21 awake, no acute events, s/p lung biop, room air Objective Objective Current Medications Medications (Trade) Dose Ordered Sig/Amita Route PRN Reason Start Time Stop Time Status Last Admin Dose Admin Acetaminophen (Tylenol) 650 mg Q6H PRN ORAL For Headache 08/16/19 17:45 09/15/19 17:44 08/21/19 02:42 Acetaminophen/ Hydrocodone Bitart ([place] 10/325) 1 tab Q4H PRN ORAL For Pain 08/16/19 17:45 08/23/19 17:44 08/22/19 11:48 Amlodipine Besylate (Norvasc) 10 mg DAILY ORAL 08/16/19 20:00 09/15/19 19:59 08/22/19 08:33 Aripiprazole (Abilify) 20 mg DAILY ORAL 08/16/19 20:00 09/30/19 19:59 08/22/19 08:32 Clonidine HCl (Catapres Tab) 0.1 mg Q4H PRN ORAL SBP > 160 08/16/19 17:45 11/14/19 17:44 Dextrose (Dextrose 50%) 25 ml Q30M PRN IV Hypoglycemia 08/16/19 18:00 11/14/19 17:59 Dextrose (Dextrose 50%) 50 ml Q30M PRN IV Hypoglycemia 08/16/19 18:00 11/14/19 17:59 Divalproex Sodium (Depakote ER) 250 mg EVERY 12 HOURS ORAL 08/16/19 21:00 09/15/19 20:59 08/22/19 08:32 Docusate Sodium (Colace) 100 mg TID PRN ORAL Constipation 08/16/19 17:45 09/15/19 17:44 08/22/19 11:47 Duloxetine HCl (Cymbalta) 30 mg DAILY ORAL 08/16/19 20:00 11/14/19 19:59 08/22/19 08:32 Enoxaparin Sodium (Lovenox) 40 mg DAILY SUBQ 08/16/19 18:30 11/14/19 18:29 08/22/19 08:34 Famotidine (Pepcid I.v.) 20 mg Q12HR IVP 08/16/19 21:00 09/15/19 20:59 08/22/19 08:33 Gadobutrol (Gadavist) 7.5 mmol NOW PRN IV Radiology Procedure 08/18/19 21:00 08/22/19 20:53 Hydralazine HCl (Apresoline) 25 mg EVERY 8 HOURS ORAL 08/16/19 22:00 11/14/19 21:59 08/22/19 06:39 Insulin Aspart (NovoLOG) BEFORE MEALS AND HS SUBQ 08/16/19 21:00 11/14/19 20:59 Metoprolol Tartrate (Lopressor) 50 mg EVERY 12 HOURS ORAL 08/21/19 21:00 11/14/19 20:59 08/22/19 08:32 Morphine Sulfate (Morphine Sulfate) 2 mg Q4H PRN IVP FOR SEVERE PAIN 08/16/19 17:45 08/23/19 17:44 08/21/19 21:54 Last 24 Hour Vital Signs Date Time Temp Pulse Resp B/P (MAP) Pulse Ox O2 Delivery O2 Flow Rate FiO2 08/22/19 09:00 Room Air 08/22/19 08:33 89 134/78 08/22/19 08:32 89 134/78 08/22/19 08:00 98.9 89 20 134/78 (96) 93 08/22/19 06:39 126/64 08/22/19 06:00 98.4 66 16 126/64 (84) 93 08/22/19 00:00 97.9 72 18 134/71 (92) 95 08/21/19 21:41 132/70 08/21/19 21:00 Room Air 08/21/19 21:00 80 132/70 08/21/19 20:00 98.5 80 18 132/70 (90) 97 08/21/19 16:00 98.5 80 18 141/75 (97) 92 08/21/19 14:10 134/77 08/21/19 12:00 98.0 71 20 134/77 (96) 94 08/21/19 09:00 Room Air 08/21/19 08:53 82 151/76 08/21/19 08:53 82 151/76 08/21/19 08:00 98.2 82 18 151/76 (101) 91 08/21/19 05:52 134/80 08/21/19 04:00 98.4 77 16 134/80 (98) 97 08/21/19 00:00 98.2 81 18 137/78 (97) 97 08/20/19 21:06 86 148/82 08/20/19 21:06 148/82 08/20/19 21:00 Room Air 08/20/19 20:00 98.1 86 16 148/82 (104) 97 08/20/19 16:00 97.2 69 19 148/78 (101) 97 08/20/19 13:59 98.2 08/20/19 13:30 157/80 08/20/19 12:00 98.2 74 19 157/80 (105) 97 Intake and Output 08/21/19 08/22/19 19:00 07:00 Intake Total 400 ml 240 ml Output Total 600 ml 700 ml Balance -200 ml -460 ml Intake Oral 400 ml 240 ml Output Urine Total 600 ml 700 ml # Voids 3 Labs Test 08/20/19 05:35 08/21/19 10:20 08/22/19 05:59 White Blood Count 5.4 K/UL (4.8-10.8) Red Blood Count 4.39 M/UL (4.70-6.10) Hemoglobin 12.9 G/DL (14.2-18.0) Hematocrit 37.0 % (42.0-52.0) Mean Corpuscular Volume 84 FL (80-99) Mean Corpuscular Hemoglobin 29.4 PG (27.0-31.0) Mean Corpuscular Hemoglobin Concent 34.9 G/DL (32.0-36.0) Red Cell Distribution Width 13.3 % (11.6-14.8) Platelet Count 392 K/UL (150-450) Mean Platelet Volume 5.5 FL (6.5-10.1) Neutrophils (%) (Auto) 63.0 % (45.0-75.0) Lymphocytes (%) (Auto) 26.3 % (20.0-45.0) Monocytes (%) (Auto) 8.7 % (1.0-10.0) Eosinophils (%) (Auto) 1.4 % (0.0-3.0) Basophils (%) (Auto) 0.6 % (0.0-2.0) Sodium Level 137 MMOL/L (136-145) 136 MMOL/L (136-145) 133 MMOL/L (136-145) Potassium Level 3.6 MMOL/L (3.5-5.1) 3.8 MMOL/L (3.5-5.1) 4.1 MMOL/L (3.5-5.1) Chloride Level 98 MMOL/L (98-107) 95 MMOL/L (98-107) 96 MMOL/L (98-107) Carbon Dioxide Level 25 MMOL/L (21-32) 28 MMOL/L (21-32) 24 MMOL/L (21-32) Anion Gap 14 mmol/L (5-15) 13 mmol/L (5-15) 13 mmol/L (5-15) Blood Urea Nitrogen 12 mg/dL (7-18) 13 mg/dL (7-18) 11 mg/dL (7-18) Creatinine 0.8 MG/DL (0.55-1.30) 0.8 MG/DL (0.55-1.30) 0.7 MG/DL (0.55-1.30) Estimat Glomerular Filtration Rate > 60 mL/min (>60) > 60 mL/min (>60) > 60 mL/min (>60) Glucose Level 103 MG/DL (74-106) 112 MG/DL (74-106) 98 MG/DL (74-106) Calcium Level 10.3 MG/DL (8.5-10.1) 11.0 MG/DL (8.5-10.1) 10.1 MG/DL (8.5-10.1) Ionized Calcium (Measured) 1.23 mmol/L (1.10-1.35) 1.23 mmol/L (1.10-1.35) Phosphorus Level 4.9 MG/DL (2.5-4.9) 5.2 MG/DL (2.5-4.9) Magnesium Level 1.8 MG/DL (1.8-2.4) 1.9 MG/DL (1.8-2.4) Height (Feet): 6 Height (Inches): 1.00 Weight (Pounds): 173 Objective Physical Exam: Vitals: reviewed General: NAD HEENT: nc, at Neck: supple Chest: clear breath sounds bilaterally Cardiovascular: RRR, no s3, s4 Abdomen: soft, nontender, nd Extremities: no cce, normal range of motion Neuro: alert and oriented Sam Burch MD Aug 22, 2019 11:56
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
--- NOTE | 2019-08-22 23:29 | Neurology Progress Note ---
Interim History Interim History ROS Limited/Unobtainable: No Interim History no aucte deficits Objective Physical Exam Last Vital Signs Date Time Temp Pulse Resp B/P (MAP) Pulse Ox O2 Delivery O2 Flow Rate FiO2 08/22/19 21:42 120/74 08/22/19 21:40 96 08/22/19 16:00 98.8 20 92 08/22/19 09:00 Room Air 08/16/19 18:30 2.0 Laboratory Tests Test 08/22/19 05:59 Sodium Level 133 MMOL/L (136-145) L Potassium Level 4.1 MMOL/L (3.5-5.1) Chloride Level 96 MMOL/L (98-107) L Carbon Dioxide Level 24 MMOL/L (21-32) Anion Gap 13 mmol/L (5-15) Blood Urea Nitrogen 11 mg/dL (7-18) Creatinine 0.7 MG/DL (0.55-1.30) Estimat Glomerular Filtration Rate > 60 mL/min (>60) Glucose Level 98 MG/DL (74-106) Calcium Level 10.1 MG/DL (8.5-10.1) Ionized Calcium (Measured) 1.23 mmol/L (1.10-1.35) Phosphorus Level 5.2 MG/DL (2.5-4.9) H Magnesium Level 1.9 MG/DL (1.8-2.4) General: well developed Head: normocophalic Neck: no rigidity Neurologic Exam Objective tangential speech moves all 4 non focal Impression/Recommendations Problems: (1) Abnormal laboratory test result (2) Dehydration (3) Intractable vomiting Diagnostic Impression #Presumed Metastatic Lung CA w/ CT revealing diffuse pulmonary nodules, Hilar Adenopathy, along with osteolytic lesions ; Smoking Hx rule out brain mets #Hypercalcemia, suspect of malignancy #Elevated alk phos due to bone mets #HTN #Bipolar/Schizo #Hx of DMII #Anemia of Chronic Dx -Stable ct brain only FU biopsy Kishor Melgoza MD Aug 22, 2019 23:29
[2019-08-22] MEDS: Morphine Sulfate 2mg/ml Inj(IV/IM USE ONLY) IVP PRN (23:46)
[2019-08-23] VITALS: BP 125/78
[2019-08-23] MEDS: Morphine Sulfate 2mg/ml Inj(IV/IM USE ONLY) IVP PRN (03:30)
[2019-08-23 05:45] VITALS: BP 149/77
[2019-08-23] MEDS: HYDROcodone/Acetamin 10/325 tab ORAL PRN (05:45)
[2019-08-23] MEDS: HydrALAZINE 25mg tab ORAL SCH (05:46)
[2019-08-23] MEDS: NovoLOG Insulin Flexpen SUBQ SCH ×2 (06:30→11:30)
[2019-08-23 08:00] VITALS: BP 139/74
[2019-08-23] MEDS: ARIPiprazole 10mg tab ORAL SCH (08:50)
[2019-08-23] MEDS: Metoprolol Tartrate 50mg tab ORAL SCH (08:51)
[2019-08-23] MEDS: Depakote ER 250mg tab ORAL SCH (08:51)
[2019-08-23] MEDS: DULoxetine 30mg cap ORAL SCH (08:51)
[2019-08-23] MEDS: Enoxaparin 40mg Inj SUBQ SCH (09:00)
[2019-08-23 10:54] LABS: ANION GAP 13 mmol/L (5-15); BLOOD UREA NITROGEN 11 mg/dL (7-18); CALCIUM 9.6 MG/DL (8.5-10.1); CARBON DIOXIDE 26 MMOL/L (21-32); CHLORIDE 94 MMOL/L (98-107); CREATININE 0.6 MG/DL (0.55-1.30); POTASSIUM 3.9 MMOL/L (3.5-5.1); SODIUM 133 MMOL/L (136-145)
--- NOTE | 2019-08-23 10:55 | Pulmonology Progress Note ---
Subjective ROS Limited/Unobtainable: No Interval Events: None new' s/p lung biopsy HEENT: Repors: no symptoms Respiratory: Reports: no symptoms Gastrointestinal/Abdominal: Reports: no symptoms Allergies: Coded Allergies: No Known Allergies (Unverified , 07/27/19) Objective Last 24 Hour Vital Signs Date Time Temp Pulse Resp B/P (MAP) Pulse Ox O2 Delivery O2 Flow Rate FiO2 08/23/19 09:00 Room Air 08/23/19 08:51 79 139/74 08/23/19 08:51 79 139/74 08/23/19 08:00 98.4 79 20 139/74 (95) 95 08/23/19 05:46 149/77 08/23/19 05:45 98.8 81 16 149/77 (101) 96 08/23/19 00:00 98.7 92 16 125/78 (94) 95 08/22/19 21:42 120/74 08/22/19 21:40 96 120/74 08/22/19 21:00 Room Air 08/22/19 20:00 99.0 96 17 120/74 (89) 92 08/22/19 16:00 98.8 85 20 139/75 (96) 92 08/22/19 13:44 120/83 08/22/19 12:00 99.1 83 20 150/80 (103) 92 Intake and Output 08/22/19 08/23/19 19:00 07:00 Intake Total 720 ml 360 ml Balance 720 ml 360 ml Intake Oral 720 ml 360 ml # Voids 3 # Bowel Movements 1 General Appearance: no acute distress Respiratory: chest wall non-tender Cardiovascular: normal peripheral pulses Microbiology Date/Time Source Procedure Growth Status 08/21/19 15:15 Nasopharynx Coronavirus COVID-19 PCR ([place]) - Final Complete Laboratory Tests 08/23/19 10:20: Sodium Level 133L, Potassium Level 3.9, Chloride Level 94L, Carbon Dioxide Level 26, Anion Gap 13, Blood Urea Nitrogen 11, Creatinine 0.6, Estimat Glomerular Filtration Rate > 60, Glucose Level 138H, Calcium Level 9.6, Phosphorus Level [Pending] Current Medications Medications (Trade) Dose Ordered Sig/Amita Route PRN Reason Start Time Stop Time Status Last Admin Dose Admin Acetaminophen (Tylenol) 650 mg Q6H PRN ORAL For Headache 08/16/19 17:45 6/27/20 17:44 08/21/19 02:42 Acetaminophen/ Hydrocodone Bitart ([place] 10/325) 1 tab Q4H PRN ORAL For Pain 08/16/19 17:45 08/23/19 17:44 08/23/19 05:45 Amlodipine Besylate (Norvasc) 10 mg DAILY ORAL 08/16/19 20:00 09/15/19 19:59 08/23/19 08:51 Aripiprazole (Abilify) 20 mg DAILY ORAL 08/16/19 20:00 09/30/19 19:59 08/23/19 08:50 Clonidine HCl (Catapres Tab) 0.1 mg Q4H PRN ORAL SBP > 160 08/16/19 17:45 11/14/19 17:44 Dextrose (Dextrose 50%) 25 ml Q30M PRN IV Hypoglycemia 08/16/19 18:00 11/14/19 17:59 Dextrose (Dextrose 50%) 50 ml Q30M PRN IV Hypoglycemia 08/16/19 18:00 11/14/19 17:59 Divalproex Sodium (Depakote ER) 250 mg EVERY 12 HOURS ORAL 08/16/19 21:00 09/15/19 20:59 08/23/19 08:51 Docusate Sodium (Colace) 100 mg TID PRN ORAL Constipation 08/16/19 17:45 09/15/19 17:44 08/22/19 11:47 Duloxetine HCl (Cymbalta) 30 mg DAILY ORAL 08/16/19 20:00 11/14/19 19:59 08/23/19 08:51 Enoxaparin Sodium (Lovenox) 40 mg DAILY SUBQ 08/16/19 18:30 11/14/19 18:29 08/22/19 08:34 Famotidine (Pepcid I.v.) 20 mg Q12HR IVP 08/16/19 21:00 09/15/19 20:59 08/23/19 08:49 Hydralazine HCl (Apresoline) 25 mg EVERY 8 HOURS ORAL 08/16/19 22:00 11/14/19 21:59 08/23/19 05:46 Insulin Aspart (NovoLOG) BEFORE MEALS AND HS SUBQ 08/16/19 21:00 11/14/19 20:59 Metoprolol Tartrate (Lopressor) 50 mg EVERY 12 HOURS ORAL 08/21/19 21:00 11/14/19 20:59 08/23/19 08:51 Morphine Sulfate (Morphine Sulfate) 2 mg Q4H PRN IVP FOR SEVERE PAIN 08/16/19 17:45 08/23/19 17:44 08/23/19 03:30 Assessment/Plan Assessment/Plan IMPRESSION: 1. Metastatic carcinoma, biopsy results pending. 2. Hypertension. 3. Chronic back pain. 4. Bipolar disorder. 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 Hypercalcemic; corrected post treatment now OK to dc and arrange outpt followup Benita Jama Omar Syed MD Aug 23, 2019 10:55
--- NOTE | 2019-08-23 11:17 | Nephrology Progress Note ---
Assessment/Plan Plan #Hypercalcemia likely related to malignancy #New onset lung malignancy- given CT findings #HTN #Bipolar/Schizo #Hx of DMII #Anemia of Chronic Dx -Stable - s/p pamidronate 60 x1 - monitor free calcium - PTH maciel low - f/u PTHrp - continue amlodipine 10mg daily - add metop 50 BID - monitor i&Os - avoid nephrotoxins - check mag, amie, phs daily Time spent 40 min, greater than 20 min on care coordination and counseling Subjective ROS Limited/Unobtainable: No Constitutional: Denies: no symptoms, chills, diaphoresis, fever, malaise, weakness, other HEENT: Denies: no symptoms, eye pain, blurred vision, tearing, double vision, ear pain, ear discharge, nose pain, nose congestion, throat pain, throat swelling, mouth pain, mouth swelling, other Genitourinary: Denies: no symptoms, burning, discharge, frequency, flank pain, hematuria, incontinence, pain, urgency, other Neurologic/Psychiatric: Denies: no symptoms, anxiety, depressed, emotional problems, headache, numbness, paresthesia, pre-existing deficit, seizure, tingling, tremors, weakness, other Subjective BP stable calcium better today wants to be discharged Objective Objective Last 24 Hour Vital Signs Date Time Temp Pulse Resp B/P (MAP) Pulse Ox O2 Delivery O2 Flow Rate FiO2 08/23/19 09:00 Room Air 08/23/19 08:51 79 139/74 08/23/19 08:51 79 139/74 08/23/19 08:00 98.4 79 20 139/74 (95) 95 08/23/19 05:46 149/77 08/23/19 05:45 98.8 81 16 149/77 (101) 96 08/23/19 00:00 98.7 92 16 125/78 (94) 95 08/22/19 21:42 120/74 08/22/19 21:40 96 120/74 08/22/19 21:00 Room Air 08/22/19 20:00 99.0 96 17 120/74 (89) 92 08/22/19 16:00 98.8 85 20 139/75 (96) 92 08/22/19 13:44 120/83 08/22/19 12:00 99.1 83 20 150/80 (103) 92 Intake and Output 08/22/19 08/23/19 19:00 07:00 Intake Total 720 ml 360 ml Balance 720 ml 360 ml Intake Oral 720 ml 360 ml # Voids 3 # Bowel Movements 1 Laboratory Tests 08/23/19 10:20: Sodium Level 133L, Potassium Level 3.9, Chloride Level 94L, Carbon Dioxide Level 26, Anion Gap 13, Blood Urea Nitrogen 11, Creatinine 0.6, Estimat Glomerular Filtration Rate > 60, Glucose Level 138H, Calcium Level 9.6, Phosphorus Level 4.4 Height (Feet): 6 Height (Inches): 1.00 Weight (Pounds): 173 Deisy Steel M.D. Aug 23, 2019 11:17
[2019-08-23 12:00] VITALS: BP 143/77
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
--- NOTE | 2019-08-23 15:00 | Hematology/Onc Progress Note ---
Assessment/Plan Assessment/Plan Assessment and Recs # Metastatic disease including multiple pulmonary lesions, mediastinal and hilar adenopathy, multiple osteolytic rib lesions and subtle low-density areas in the liver suspicious for underlying metastasis. --> tumor markers have been ordered-->negative results --> ct guided biopsy ordered with Dr. Rubio, --> 08/16 ct guided biop of rib lesion performed, waiting path report --> after path is back may discuss any potential treatment options --> outpatient care # Anemia of chronic disease --> hgb trend 12.5 --> hgb currently stable # Intractable vomiting --> zofran prn # Dehydration --> renal eval as needed # Dvt ppx scds for now pre-proceudre The timing of this note does not necessarily reflect the time of the patient was seen. Greatly appreciate consultation. Subjective HEENT: Denies: no symptoms, eye pain, blurred vision, tearing, double vision, ear pain, ear discharge, nose pain, nose congestion, throat pain, throat swelling, mouth pain, mouth swelling, other Cardiovascular: Denies: no symptoms, chest pain, edema, irregular heart rate, lightheadedness, palpitations, syncope, other Respiratory: Denies: no symptoms, cough, shortness of breath, SOB with excertion, SOB at rest, sputum, wheezing, other Gastrointestinal/Abdominal: Denies: no symptoms, abdomen distended, abdominal pain, black stools, tarry stools, blood in stool, constipated, diarrhea, difficulty swallowing, nausea, poor appetite, poor fluid intake, rectal bleeding , vomiting, other Genitourinary: Denies: no symptoms, burning, discharge, frequency, flank pain, hematuria, incontinence, pain, urgency, other Neurologic/Psychiatric: Denies: no symptoms, anxiety, depressed, emotional problems, headache, numbness, paresthesia, pre-existing deficit, seizure, tingling, tremors, weakness, other Allergies: Coded Allergies: No Known Allergies (Unverified , 07/27/19) Subjective 08/17 s/p successful ct guided biop of rib lesion, awaiting path report, no distress 08/18 confused, no overnight events, pending consent for mri brain w/ contrast 08/19 mri brain not performed, labs reviewed, awaiting path report 08/20 no major changes, no bleeding or chills, labs reviewed 08/21 awake, no acute events, s/p lung biop, room air 08/22 awaiting final results for the biopsy, ahve dw pathology, but final results to be read shortly Objective Objective Current Medications Medications (Trade) Dose Ordered Sig/Amita Route PRN Reason Start Time Stop Time Status Last Admin Dose Admin Acetaminophen (Tylenol) 650 mg Q6H PRN ORAL For Headache 08/16/19 17:45 09/15/19 17:44 08/21/19 02:42 Acetaminophen/ Hydrocodone Bitart ([place] 10/325) 1 tab Q4H PRN ORAL For Pain 08/16/19 17:45 08/23/19 17:44 08/23/19 05:45 Amlodipine Besylate (Norvasc) 10 mg DAILY ORAL 08/16/19 20:00 09/15/19 19:59 08/23/19 08:51 Aripiprazole (Abilify) 20 mg DAILY ORAL 08/16/19 20:00 09/30/19 19:59 08/23/19 08:50 Clonidine HCl (Catapres Tab) 0.1 mg Q4H PRN ORAL SBP > 160 08/16/19 17:45 11/14/19 17:44 Dextrose (Dextrose 50%) 25 ml Q30M PRN IV Hypoglycemia 08/16/19 18:00 11/14/19 17:59 Dextrose (Dextrose 50%) 50 ml Q30M PRN IV Hypoglycemia 08/16/19 18:00 11/14/19 17:59 Divalproex Sodium (Depakote ER) 250 mg EVERY 12 HOURS ORAL 08/16/19 21:00 09/15/19 20:59 08/23/19 08:51 Docusate Sodium (Colace) 100 mg TID PRN ORAL Constipation 08/16/19 17:45 09/15/19 17:44 08/22/19 11:47 Duloxetine HCl (Cymbalta) 30 mg DAILY ORAL 08/16/19 20:00 11/14/19 19:59 08/23/19 08:51 Enoxaparin Sodium (Lovenox) 40 mg DAILY SUBQ 08/16/19 18:30 11/14/19 18:29 08/22/19 08:34 Famotidine (Pepcid I.v.) 20 mg Q12HR IVP 08/16/19 21:00 09/15/19 20:59 08/23/19 08:49 Hydralazine HCl (Apresoline) 25 mg EVERY 8 HOURS ORAL 08/16/19 22:00 11/14/19 21:59 08/23/19 05:46 Insulin Aspart (NovoLOG) BEFORE MEALS AND HS SUBQ 08/16/19 21:00 11/14/19 20:59 Metoprolol Tartrate (Lopressor) 50 mg EVERY 12 HOURS ORAL 08/21/19 21:00 11/14/19 20:59 08/23/19 08:51 Morphine Sulfate (Morphine Sulfate) 2 mg Q4H PRN IVP FOR SEVERE PAIN 08/16/19 17:45 08/23/19 17:44 08/23/19 03:30 Last 24 Hour Vital Signs Date Time Temp Pulse Resp B/P (MAP) Pulse Ox O2 Delivery O2 Flow Rate FiO2 08/23/19 12:00 98.0 80 18 143/77 (99) 90 08/23/19 09:00 Room Air 08/23/19 08:51 79 139/74 08/23/19 08:51 79 139/74 08/23/19 08:00 98.4 79 20 139/74 (95) 95 08/23/19 05:46 149/77 08/23/19 05:45 98.8 81 16 149/77 (101) 96 08/23/19 00:00 98.7 92 16 125/78 (94) 95 08/22/19 21:42 120/74 08/22/19 21:40 96 120/74 08/22/19 21:00 Room Air 08/22/19 20:00 99.0 96 17 120/74 (89) 92 08/22/19 16:00 98.8 85 20 139/75 (96) 92 08/22/19 13:44 120/83 08/22/19 12:00 99.1 83 20 150/80 (103) 92 08/22/19 09:00 Room Air 08/22/19 08:33 89 134/78 08/22/19 08:32 89 134/78 08/22/19 08:00 98.9 89 20 134/78 (96) 93 08/22/19 06:39 126/64 08/22/19 06:00 98.4 66 16 126/64 (84) 93 08/22/19 00:00 97.9 72 18 134/71 (92) 95 08/21/19 21:41 132/70 08/21/19 21:00 Room Air 08/21/19 21:00 80 132/70 08/21/19 20:00 98.5 80 18 132/70 (90) 97 08/21/19 16:00 98.5 80 18 141/75 (97) 92 Intake and Output 08/22/19 08/23/19 19:00 07:00 Intake Total 720 ml 360 ml Balance 720 ml 360 ml Intake Oral 720 ml 360 ml # Voids 3 # Bowel Movements 1 Labs Test 08/21/19 10:20 08/22/19 05:59 08/23/19 10:20 Sodium Level 136 MMOL/L (136-145) 133 MMOL/L (136-145) 133 MMOL/L (136-145) Potassium Level 3.8 MMOL/L (3.5-5.1) 4.1 MMOL/L (3.5-5.1) 3.9 MMOL/L (3.5-5.1) Chloride Level 95 MMOL/L (98-107) 96 MMOL/L (98-107) 94 MMOL/L (98-107) Carbon Dioxide Level 28 MMOL/L (21-32) 24 MMOL/L (21-32) 26 MMOL/L (21-32) Anion Gap 13 mmol/L (5-15) 13 mmol/L (5-15) 13 mmol/L (5-15) Blood Urea Nitrogen 13 mg/dL (7-18) 11 mg/dL (7-18) 11 mg/dL (7-18) Creatinine 0.8 MG/DL (0.55-1.30) 0.7 MG/DL (0.55-1.30) 0.6 MG/DL (0.55-1.30) Estimat Glomerular Filtration Rate > 60 mL/min (>60) > 60 mL/min (>60) > 60 mL/min (>60) Glucose Level 112 MG/DL (74-106) 98 MG/DL (74-106) 138 MG/DL (74-106) Calcium Level 11.0 MG/DL (8.5-10.1) 10.1 MG/DL (8.5-10.1) 9.6 MG/DL (8.5-10.1) Ionized Calcium (Measured) 1.23 mmol/L (1.10-1.35) Phosphorus Level 5.2 MG/DL (2.5-4.9) 4.4 MG/DL (2.5-4.9) Magnesium Level 1.9 MG/DL (1.8-2.4) Height (Feet): 6 Height (Inches): 1.00 Weight (Pounds): 173 Objective Physical Exam: Vitals: reviewed General: NAD HEENT: nc, at Neck: supple Chest: clear breath sounds bilaterally Cardiovascular: RRR, no s3, s4 Abdomen: soft, nontender, nd Extremities: no cce, normal range of motion Neuro: alert and oriented Sam Burch MD Aug 23, 2019 15:00
--- NOTE | 2019-08-23 22:27 | Neurology Progress Note ---
Interim History Interim History ROS Limited/Unobtainable: No Interim History planning dc today Objective Physical Exam Last Vital Signs Date Time Temp Pulse Resp B/P (MAP) Pulse Ox O2 Delivery O2 Flow Rate FiO2 08/23/19 12:00 98.0 80 18 143/77 (99) 90 08/23/19 09:00 Room Air 08/16/19 18:30 2.0 Laboratory Tests Test 08/23/19 10:20 Sodium Level 133 MMOL/L (136-145) L Potassium Level 3.9 MMOL/L (3.5-5.1) Chloride Level 94 MMOL/L (98-107) L Carbon Dioxide Level 26 MMOL/L (21-32) Anion Gap 13 mmol/L (5-15) Blood Urea Nitrogen 11 mg/dL (7-18) Creatinine 0.6 MG/DL (0.55-1.30) Estimat Glomerular Filtration Rate > 60 mL/min (>60) Glucose Level 138 MG/DL (74-106) H Calcium Level 9.6 MG/DL (8.5-10.1) Phosphorus Level 4.4 MG/DL (2.5-4.9) General: well developed Head: normocophalic Neck: no rigidity Neurologic Exam Objective tangential speech moves all 4 non focal Impression/Recommendations Problems: (1) Abnormal laboratory test result (2) Dehydration (3) Intractable vomiting Diagnostic Impression #Presumed Metastatic Lung CA w/ CT revealing diffuse pulmonary nodules, Hilar Adenopathy, along with osteolytic lesions ; Smoking Hx rule out brain mets #Hypercalcemia, suspect of malignancy #Elevated alk phos due to bone mets #HTN #Bipolar/Schizo #Hx of DMII #Anemia of Chronic Dx -Stable ct brain only FU biopsy Kishor Melgoza MD Aug 23, 2019 22:27
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
== END 2019-08-23 14:50 | DRG 167 ==
LOC: EDUNIT# 15:00 → EDBD 15:00 → EMR 15:34 → 3E 15:40 → EDBEDREQ 17:44 → 3E 18:38
PROC: 0PB13ZX Excision of 1 to 2 Ribs, Percutaneous Approach, Diagnostic (ICD-10-PCS; principal; 2019-08-17)
DX: C78.01 Secondary malignant neoplasm of right lung (principal); C78.1 Secondary malignant neoplasm of mediastinum; C77.9 Secondary and unspecified malignant neoplasm of lymph node, unspecified; C79.51 Secondary malignant neoplasm of bone; G93.40 Encephalopathy, unspecified; E86.0 Dehydration; C78.02 Secondary malignant neoplasm of left lung; I10 Essential (primary) hypertension; G89.29 Other chronic pain; M54.89 Other dorsalgia; E83.52 Hypercalcemia; D63.8 Anemia in other chronic diseases classified elsewhere; F25.0 Schizoaffective disorder, bipolar type; E11.9 Type 2 diabetes mellitus without complications; J44.9 Chronic obstructive pulmonary disease, unspecified; Z87.891 Personal history of nicotine dependence
CPT/HCPCS: 36415; 70450; 71045; 77012; 80048; 80053; 80307; 81003; 82306; 82330; 82378; 82962; 83036; 83519; 83605; 83615; 83690; 83735; 83970; 84100; 84484; 84550; 85007; 85025; 85610; 85730; 86300; 86304; 87081; 96361; 96374; 99285; G0480; J1815; J2405; J2430; J7030